=== PATIENT | female | born 1960 | race Asian ===

== ENCOUNTER → 2016-08-08 | Outpatient (CLI) | payer BC ==
[~2016-08-08] MED LIST: ANT25 PO; FLNIN/ NAE; HYDR12.55 PO; MECL1TAB42 PO; MULT-506 PO; NAPR-1169 PO; PRED20TA PO; ULT50 PO; VERA180T10 PO; XLTOPS OPB
--- NOTE | 2016-08-08 21:20 | DIAGNOSTIC IMAGING REPORT ---
CHEST 2 VIEWS ROUTINE CLINICAL HISTORY: Cough, fatigue. COMPARISON STUDY: 04/15/2016 FINDINGS: The cardiac and mediastinal contours are normal. There is no evidence of focal pulmonary consolidation. There is no evidence of failure. No pleural effusions are visualized.[ IMPRESSION: No active disease in the chest. Electronically signed by: Galo Khan M.D. 08/08/2016 9:18 PM Dictated Date/Time: 08/08/2016 9:18 PM
== END | disposition home or self-care (01) ==
LOC: C.RAD 20:45
PROVIDERS: ATTEND Family Medicine
DX: R05 Cough (principal); R09.89 Other specified symptoms and signs involving the circulatory and respiratory systems; R53.83 Other fatigue

== ENCOUNTER → 2016-08-12 | Outpatient (CLI) | payer BC ==
--- NOTE | 2016-08-12 11:28 | DIAGNOSTIC IMAGING REPORT ---
LEFT ELBOW MIN 3 VIEWS CLINICAL HISTORY: Left elbow pain COMPARISON: None. DISCUSSION: The fat pads are not displaced. 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 No acute fractures are visualized. No destructive lesions are evident. 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 Electronically signed by: Galo Khan M.D. 08/12/2016 11:27 AM Dictated Date/Time: 08/12/2016 11:25 AM
--- NOTE | 2016-08-12 15:07 | DIAGNOSTIC IMAGING REPORT ---
RIGHT ELBOW 3 VIEWS CLINICAL HISTORY: Right elbow pain. No reported history of trauma. FINDINGS: 3 views of the right elbow are obtained. No prior studies are available for comparison at the time of dictation. The skeletal structures appear osteopenic. No fracture is seen. The joint spaces of the elbow are well-maintained. There is no joint effusion. Mild spurring is seen along the medial joint space. There is also minimal spurring from the radial head. There are tiny enthesophytes arising from the humeral epicondyles. The overlying soft tissues are normal in appearance. IMPRESSION: Minimal degenerative change as above with no acute bony abnormality identified in the right elbow. Electronically signed by: Aubrey Iyer M.D. 08/12/2016 3:06 PM Dictated Date/Time: 08/12/2016 3:05 PM
== END | disposition home or self-care (01) ==
LOC: C.RDSM 08:00
PROVIDERS: ATTEND Physical Medicine & Rehabilitation Sports Medicine
DX: M25.529 Pain in unspecified elbow (principal)

== ENCOUNTER → 2016-09-05 | Outpatient (CLI) | payer BC ==
--- NOTE | 2016-09-06 12:25 | MAMMOGRAPHY REPORT ---
BILATERAL DIGITAL SCREENING MAMMOGRAM TOMOSYNTHESIS WITH CAD: 09/05/2016 CLINICAL HISTORY: Routine screening. Patient has no complaints. TECHNIQUE: Breast tomosynthesis in addition to standard 2D mammography was performed. Current study was also evaluated with a Computer Aided Detection (CAD) system. COMPARISON: Comparison is made to exams dated: 09/03/2015 mammogram, 09/01/2014 mammogram, 08/26/2013 mammogram, 08/20/2012 mammogram, 08/16/2011 mammogram, and 08/09/2010 mammogram - [facility]. BREAST COMPOSITION: There are scattered areas of fibroglandular density in both breasts. FINDINGS: The parenchymal pattern is unchanged. No developing mass, architectural distortion or clu ster of suspicious microcalcifications is seen in either breast. IMPRESSION: ACR BI-RADS CATEGORY 2: BENIGN There is no mammographic evidence of malignancy. A 1 year screening mammogram is recommended. The p atient will receive written notification of the results. Approximately 10% of breast cancers are not detected with mammography. A negative mammographic repor t should not delay biopsy if a clinically suggestive mass is present. Silvia Carlisle M.D. ay/:09/05/2016 22:00:22 Dishwashing Machine Repairer: Sarahi MA(Vinh)(Anika)(BD), [facility] letter sent: Normal 1/2 BI-RADS Code: ACR BI-RADS Category 2: Benign
== END | disposition home or self-care (01) ==
LOC: C.MAMM 14:47
PROVIDERS: ATTEND Nurse Practitioner Family
DX: Z12.31 Encounter for screening mammogram for malignant neoplasm of breast (principal)

== ENCOUNTER → 2016-10-03 | Outpatient (CLI) | payer BC | END | disposition home or self-care (01) | LOC: C.PAPS 12:17 | PROVIDERS: ATTEND Physician Assistant | DX: Z01.419 Encounter for gynecological examination (general) (routine) without abnormal findings (principal) ==

== ENCOUNTER 2016-11-07 09:35 | Emergency (ER) | payer BC ==
[~2016-11-07] VITALS: Ht 157.5 cm; Wt 53.6 kg
[~2016-11-07 09:35] MED LIST changes: -MULT-506 PO; -NAPR-1169 PO; -ULT50 PO; -VERA180T10 PO
[2016-11-07 09:41] VITALS: TEMP 36.6; Ht 157.5 cm; Wt 53.6 kg
[2016-11-07] MEDS ORDERED: ULT50 PO (10:04)
[2016-11-07] MEDS ORDERED: HYDROmorphone INJ 0.5 MG/0.5 ML SYR IV STA (10:51)
[2016-11-07] MEDS ORDERED: KETOROLAC TROMETHAMINE 30 MG/ML VIAL IV STA (10:51)
--- NOTE | 2016-11-07 10:55 | EMERGENCY ROOM VISIT NOTE ---
History Report prepared by Kaushik: Luis Mojica Under the Supervision of: Dr. Tawny Barry D.O. First contact with patient: 10:07 Chief Complaint: HIP PAIN Stated Complaint: PAIN FROM BUTT ALL THE WAY TO THE FOOT History of Present Illness The patient is a 55 year old female who presents to the Emergency Room with complaints of persistent left sided back pain that began one week ago. She currently rates her discomfort as an 8/10 in severity. The patient notes a history of chronic right sided back pain, but states that one week ago she developed left sided back pain. She states that her pain has radiated down her left lower extremity. The patient states that she has had difficulty ambulating and sitting due to her pain. The patient states that she consulted her PCP and was told that she had sciatica. She states that she was prescribed 50 mg of Tramadol three times a day for her pain and a Prednisone taper. The patient denies any previous MRI of her back. She associates nausea and dizziness due to her pain medications. The patient states that last Monday she used a massage chair that began prior to her pain beginning. Source of History: patient Onset: one week ago Position: back (left sided) Symptom Intensity: 8/10 Quality: other (radiating) Timing: other (persistent) Associated Symptoms: + nausea Note: Associated Symptom: pain radiating down left leg, dizziness Review of Systems See HPI for pertinent positives & negatives. A total of 10 systems reviewed and were otherwise negative. Past Medical & Surgical Medical Problems: (1) Hypercholesteremia (2) Migraine headache (3) Neck pain (4) Thyroid disease Family History Patient reports no known family medical history. Social History Smoking Status: Never Smoker Alcohol Use: none Drug Use: none Marital Status: Housing Status: lives with family Occupation Status: employed Current/Historical Medications Scheduled Fluticasone Propionate (Fluticasone Propionate), 2 SPRAYS DARRIN DAILY Hydrochlorothiazide (Hydrochlorothiazide), 1 TAB PO QAM Latanoprost (Latanoprost), 1 DROP OPB HS Prednisone (Prednisone), 40 MG PO DAILY Scheduled PRN Meclizine HCl (Meclizine HCl), 25 MG PO Q8 PRN for vertigo Meclizine Hcl (Meclizine Hcl), 1 TAB PO TID PRN for Nausea Tramadol HCl (Tramadol HCl), 50 MG PO UD PRN for Pain Allergies Coded Allergies: Shrimp (Unverified Allergy, Mild, RASH, 04/15/16) Desloratadine (Verified Allergy, Unknown, RASH, 04/15/16) Loratadine (Verified Allergy, Unknown, rash, 04/15/16) Shellfish (Verified Allergy, Unknown, RASH, 04/15/16) Amlodipine (Verified Adverse Reaction, Intermediate, SWELLING IN FEET, 04/15/16) Lisinopril (Verified Adverse Reaction, Intermediate, SWELLING IN FEET, 04/15/16) Physical Exam Vital Signs Date Time Temp Pulse Resp B/P Pulse Ox O2 Delivery O2 Flow Rate FiO2 11/07/16 14:25 68 16 161/97 97 11/07/16 13:30 60 16 142/87 98 Room Air 11/07/16 12:17 61 16 148/92 95 Room Air 11/07/16 11:07 73 16 171/100 96 Room Air 11/07/16 09:41 36.6 76 18 181/105 96 Room Air Physical Exam HEENT: Head - normocephalic and atraumatic Pupils are equal, round, and reactive to light. Extraocular eye muscles are intact, and sclera are anicteric. Nose - moist nasal mucosa without discharge. Mouth - moist buccal mucosa. Oropharynx is nonerythematous and there is no tonsillar exudate or edema noted. Neck: Supple; no JVD, nuchal rigidity, cervical lymphadenopathy, or auscultated bruits. Heart: Regular rate and rhythm. There is a normal S1 and S2 with no murmurs, clicks, or gallops appreciated. Lungs: Clear to auscultation bilaterally with no wheezes, rales, or rhonchi. Abdomen: Soft, completely nontender, nondistended, with good bowel sounds. There are no palpable pulsatile masses or hepatosplenomegaly. There is no guarding, rigidity, or rebound noted. Back: Pain to palpation of the PSIS, left piriformis muscle, and left hip. Extremities: Pain to palpation of the left calf and area behind the left lateral malleolus. Left lower extremity reflexes 2/4. Normal sensation. Normal muscle strength. No evidence of cyanosis, clubbing, or edema. There are easily palpable peripheral pulses. Skin: warm and dry with good turgor and no rashes. Medical Decision & Procedures ER Provider Diagnostic Interpretation: Radiology results as stated below per my review and the radiologist's interpretation: LUMBAR SPINE MRI HISTORY: Pain. Neuropathy. Eval for L/S disc herniation. Left leg symptoms TECHNIQUE: Multiplanar multisequence MRI of the lumbar spine was performed without the use of contrast. COMPARISON: None. FINDINGS: For the purpose of the report the L5-S1 disc space will be located on axial image 27 of 30. Posterior disc herniation L4-L5 based on the sagittal images. Signal characteristics of the vertebral bodies are unremarkable. Moderate degenerative disc change L4-L5. Mild disc desiccation L5-S1. L1-L2: No significant central canal or neural foraminal narrowing. L2-L3: No significant central canal or neural foraminal narrowing. L3-L4: No significant central canal or neural foraminal narrowing. L4-L5: Broad-based disc herniation with moderate small extruded component extending to the left lateral recess. This. Extruded component measures 9 x 4 mm. Mild narrowing of the neuroforamina bilaterally. This again is more prominent on the left. L5-S1: No significant central canal or neural foraminal narrowing. IMPRESSION: 1. Broad-based disc herniation L4-L5 with an extruded component occupying components of the left lateral recess. 2. Otherwise negative study Electronically signed by: Pradip Conklin M.D. 11/07/2016 12:31 PM Dictated Date/Time: 11/07/2016 12:23 PM Medications Administered Medications (Trade) Dose Ordered Sig/Viviane Route Start Time Stop Time Status Last Admin Dose Admin Ketorolac Tromethamine (Toradol Inj) 30 mg NOW STAT IV 11/07/16 10:51 11/07/16 10:52 DC 11/07/16 11:05 30 MG Hydromorphone HCl (Dilaudid Inj) 0.5 mg NOW STAT IV 11/07/16 10:51 11/07/16 10:52 DC 11/07/16 11:05 0.5 MG Procedure The patient was treated with Dilaudid Inj 0.5 mg IV, Toradol Inj 30 mg IV. ED Course 1040: Past medical records reviewed. The patient was evaluated in room C7. A complete history and physical exam was performed. IV lock was initiated 1051: Ordered Dilaudid Inj 0.5 mg IV, Toradol Inj 30 mg IV. Patient went for MRI of the lumbar spine. 1325: I reevaluated the patient and she states that her pain is under control, but does not believe that she can take pain medications at home, because they will make her too dizzy. 1341: I discussed the patients case with Aron Ramos-spine. He will see the patient between 1000 and 1200 tomorrow. 1409: I reevaluated the patient and she is doing well. I discussed the exam findings with her and I discussed the treatment plan. She verbalized complete understanding and agreement. She declines any pain medication prescription, stating that she will take her prescribed Prednisone and Advil. She is ready to go home. Medical Decision The patient is a 55 year old female who presents to the ED with persistent back pain. Differential diagnosis includes lumbar disc herniation, cauda equina syndrome, SI root compression, sciatica. This is a 55-year-old female patient who presents to the emergency department with severe left-sided low back pain. The patient explains that she has chronic right-sided low back pain but is typically tolerable. Over the past couple days, she's developed more intense left-sided low back pain which radiates into her left buttocks and down her left leg. She was seen by her PCP who prescribed a prednisone taper.. She presents here today because the pain is unbearable.\ MRI does show chronic findings in the right side of her low back but also a significant broad-based disc herniation affecting the left side. The patient will be discharged home. This time but will be seen by spinal surgery tomorrow. She was told to return to the emergency department immediately if she developed any worsening symptoms such as weakness or loss of sensation in that leg. Consults Time Called: 1335 Consulting Physician: Alice RamosSpine Returned Call: 1341 I discussed the patients case with Alice Ramosspine. He will see the patient between 1000 and 1200 tomorrow. Impression Primary Impression: Herniation of left side of L4-L5 intervertebral disc Additional Impression: Lumbar radiculopathy Scribe Attestation The scribe's documentation has been prepared under my direction and personally reviewed by me in its entirety. I confirm that the note above accurately reflects all work, treatment, procedures, and medical decision making performed by me. Departure Information Dispostion Home / Self-Care Referrals Eliud Santillan M.D. (PCP) Donaldo Simms D.O. Forms HOME CARE DOCUMENTATION FORM, IMPORTANT VISIT INFORMATION, WORK / SCHOOL INSTRUCTIONS Patient Instructions My [facility] Additional Instructions Continue prednisone as directed. Return to the ER for left leg weakness or loss of control of bowels or bladder Follow up with Dr. Simms tomorrow Problem Qualifiers
--- NOTE | 2016-11-07 12:32 | DIAGNOSTIC IMAGING REPORT ---
LUMBAR SPINE MRI HISTORY: Pain. Neuropathy. Eval for L/S disc herniation. Left leg symptoms TECHNIQUE: Multiplanar multisequence MRI of the lumbar spine was performed without the use of contrast. COMPARISON: None. FINDINGS: For the purpose of the report the L5-S1 disc space will be located on axial image 27 of 30. Posterior disc herniation L4-L5 based on the sagittal images. Signal characteristics of the vertebral bodies are unremarkable. Moderate degenerative disc change L4-L5. Mild disc desiccation L5-S1. L1-L2: No significant central canal or neural foraminal narrowing. L2-L3: No significant central canal or neural foraminal narrowing. L3-L4: No significant central canal or neural foraminal narrowing. L4-L5: Broad-based disc herniation with moderate small extruded component extending to the left lateral recess. This. Extruded component measures 9 x 4 mm. Mild narrowing of the neuroforamina bilaterally. This again is more prominent on the left. L5-S1: No significant central canal or neural foraminal narrowing. IMPRESSION: 1. Broad-based disc herniation L4-L5 with an extruded component occupying components of the left lateral recess. 2. Otherwise negative study Electronically signed by: Pradip Conklin M.D. 11/07/2016 12:31 PM Dictated Date/Time: 11/07/2016 12:23 PM
[2016-11-07 14:25] VITALS: BP 161/97; PULSE 68; O2SAT 97
[2016-11-18] MEDS ORDERED: NAPR-1169 PO (12:36)
[2016-11-18] MEDS ORDERED: MULT-506 PO (12:38)
[2016-11-22] MEDS ORDERED: ULT50 PO (11:18)
== END 2016-11-07 14:26 | disposition home or self-care (01) ==
LOC: C.EDB 09:36 → C.EDC 14:26
DX: M51.16 Intervertebral disc disorders with radiculopathy, lumbar region (principal); Z79.52 Long term (current) use of systemic steroids

== ENCOUNTER → 2016-11-17 | Outpatient (CLI) | payer BC ==
[~2016-11-17] MED LIST changes: +MULT-506 PO; +NAPR-1169 PO; +OMEP20CA9 PO; +ULT50 PO; +VERA180T10 PO; +VERA240C2 PO; +VRPSR180 PO; +ZLF50 PO
[2016-11-17 10:22] LABS: BASO % 0.6 %; BASO ABS # 0.04 K/uL (0-0.2); COMPLETE YES; EOS % 2.4 %; HEMATOCRIT 46.3 % (37-47); IG% 0.3 %; LYMPH % 33.5 %; LYMPH ABS # 2.23 K/uL (1.2-3.4); MANUAL MICROSCOPIC REQUIRED? NO; MEAN CELL VOLUME 86.7 fL (80-100); MEAN CORPUSCULAR HEMOGLOBIN 28.8 pg (25-34); MEAN CORPUSCULAR HGB CONC 33.3 g/dl (32-36); MEAN PLATELET VOLUME 9.3 fL (7.4-10.4); MONO % 6.8 %; NEUT % 56.4 %; PLATELET COUNT 246 K/uL (130-400); RED BLOOD COUNT 5.34 M/uL (4.2-5.4); REVIEW REQ? NO; URINE APPEARANCE CLEAR (CLEAR); URINE BILIRUBIN NEG (NEG); URINE COLOR YELLOW; URINE NITRITE NEG (NEG); URINE PH 7.5 (4.5-7.5); URINE SPECIFIC GRAVITY 1.007 (1.000-1.030); UROBILINOGEN NEG (NEG); WHITE BLOOD COUNT 6.66 K/uL (4.8-10.8)
--- NOTE | 2016-11-17 10:29 | DIAGNOSTIC IMAGING REPORT ---
CHEST 2 VIEWS ROUTINE HISTORY: M51.16 PRE-OP COMPARISON: Chest 08/08/2016. FINDINGS: The lungs are clear. Cardiac silhouette is normal in size. No pleural effusions. No pneumothorax. IMPRESSION: No acute process. Electronically signed by: Adrian Macias M.D. 11/17/2016 10:27 AM Dictated Date/Time: 11/17/2016 10:26 AM
[2016-11-17 10:58] LABS: BLOOD UREA NITROGEN 16 mg/dl (7-18); BUN/CREATININE RATIO 24.5 (10-20); CALCIUM 9.3 mg/dl (8.5-10.1); CARBON DIOXIDE 37 mmol/L (21-32); CHLORIDE 103 mmol/L (98-107); CREATININE 0.65 mg/dl (0.60-1.20); GLUCOSE 82 mg/dl (70-99); POTASSIUM 3.3 mmol/L (3.5-5.1); SODIUM 143 mmol/L (136-145)
== END | disposition home or self-care (01) ==
LOC: C.CPL 09:38
PROVIDERS: ATTEND Orthopaedic Surgery Orthopaedic Surgery of the Spine
DX: M51.16 Intervertebral disc disorders with radiculopathy, lumbar region (principal)

== ENCOUNTER 2016-11-22 08:14 | Day surgery (SDC) | payer BC ==
[2016-11-18 12:38] VITALS: Ht 157.5 cm; Wt 54.5 kg
[~2016-11-22] VITALS: Ht 157.5 cm; Wt 54.5 kg
--- NOTE | 2016-11-22 07:26 | History & Physical Bridge Note ---
H&P Re-Evaluation Bridge Note: I have examined the patient, reviewed the History & Physical and in the interval since the performance of the History & Physical I have noted the following changes of clinical significance: No changes noted
[~2016-11-22 08:14] MED LIST changes: -ANT25 PO; +CEFAZOLIN 1000MG/55 ML D5W IV SCH; +LACTATED RINGER'S 1000ML 1,000 ML IV SCH; -OMEP20CA9 PO; -PRED20TA PO; -VERA180T10 PO; -VERA240C2 PO; -VRPSR180 PO; -ZLF50 PO
[2016-11-22 08:52] VITALS: BP 166/96; PULSE 70; TEMP 36.9; O2SAT 99
[2016-11-22] MEDS ORDERED: FENTANYL CITRATE INJ 50 MCG/1 ML 2 ML VIAL ONE (09:25)
[2016-11-22] MEDS ORDERED: MIDAZOLAM HCL 1 MG/ML 2ML VIAL ONE (09:25)
--- NOTE | 2016-11-22 09:38 | History and Physical ---
History & Physical Date November 22, 2016. Chief Complaint back and leg pain History of Present Illness The patient is a 55 year old female with complaints of Past Medical/Surgical History Medical Problems: (1) Hypercholesteremia (2) Migraine headache (3) Neck pain (4) Thyroid disease Additional History Hepatic Disease: No Endocrine Disorder: No Kidney Disease: No Hypertension: No Heart Disease: No Bleeding Tendencies: No Infectious Diseases: No Allergies Coded Allergies: Shrimp (Unverified Allergy, Mild, RASH, 11/22/16) Desloratadine (Verified Allergy, Unknown, RASH, 11/22/16) Loratadine (Verified Allergy, Unknown, rash, 11/22/16) Shellfish (Verified Allergy, Unknown, RASH, 11/22/16) Amlodipine (Verified Adverse Reaction, Intermediate, SWELLING IN FEET, ) Lisinopril (Verified Adverse Reaction, Intermediate, SWELLING IN FEET, ) Home Medications Scheduled Fluticasone Propionate (Fluticasone Propionate), 2 SPRAYS DARRIN DAILY Hydrochlorothiazide (Hydrochlorothiazide), 1 TAB PO QAM Latanoprost (Latanoprost), 1 DROP OPB HS Multivitamin (Multivitamin), 1 TAB PO QAM Scheduled PRN Meclizine Hcl (Meclizine Hcl), 1 TAB PO TID PRN for Nausea Naproxen (Naprosyn), 500 MG PO BID PRN for PRN Tramadol HCl (Tramadol HCl), 50 MG PO UD PRN for Pain Physical Examination Skin: warm/dry, no rash Eyes: normal inspection, EOMI, sclerae normal ENT: normal ENT inspection, pharynx normal Head: normocephalic, atraumatic Neck: supple, no adenopathy, trachea midline Respiratory/Chest: lungs clear, normal breath sounds, no respiratory distress Cardiovascular: regular rate, rhythm, no edema, no murmur Abdomen / GI: normal bowel sounds, non tender Back: normal inspection Extremities: normal inspection, normal range of motion Neurologic/Psych: no motor/sensory deficits, alert, normal reflexes, oriented x 3 Diagnosis hnp L4-5 Plan of Treatment Laminectomy L4-5 L
[2016-11-22] MEDS ORDERED: LACTATED RINGER'S 1000ML 1,000 ML IV PRN (09:41)
[2016-11-22] MEDS ORDERED: FENTANYL CITRATE INJ 50 MCG/1 ML 2 ML VIAL IV PRN (09:45)
[2016-11-22] MEDS ORDERED: HYDROmorphone INJ 1 MG/ML SYR IV PRN ×2 (09:45→11:30)
[2016-11-22] MEDS ORDERED: ONDANSETRON INJ 2 MG/ML 2 ML VIAL IV PRN (09:45)
[2016-11-22] MEDS ORDERED: METOCLOPRAMIDE HCL INJ 5 MG/ML 2 ML VIAL IV PRN (09:45)
[2016-11-22] MEDS ORDERED: DiphenhydrAMINE HCL 50 MG/ML VIAL IV PRN (09:45)
[2016-11-22] MEDS ORDERED: SODIUM CHLORIDE 0.9% PF 50 ML VIAL ONE (09:57)
[2016-11-22] MEDS ORDERED: BACITRACIN 50000 UNIT VIAL ONE (09:57)
[2016-11-22] MEDS ORDERED: BUPIVACAINE/EPINEPHRINE 0.5% MPF 1:200,000 30 ML VIAL ONE (09:57)
[2016-11-22] MEDS ORDERED: MINERAL OIL LIGHT 10 ML BTL ONE (10:20)
[2016-11-22] MEDS ORDERED: HYDROmorphone INJ 2 MG/ML SYR/VIAL ONE (10:46)
[2016-11-22] MEDS ORDERED: KETOROLAC TROMETHAMINE 30 MG/ML VIAL ONE (10:47)
[2016-11-22] MEDS ORDERED: ONDANSETRON INJ 2 MG/ML 2 ML VIAL ONE (10:47)
[2016-11-22] MEDS ORDERED: GLYCOPYRROLATE INJ 0.2 MG/ML VIAL ONE (10:47)
[2016-11-22] MEDS ORDERED: PROPOFOL IV EMULSION 10 MG/ML 20 ML VIAL IV ONE ×2 (10:47→11:03)
[2016-11-22] MEDS ORDERED: LIDOCAINE HCL 2% 2 ML VIAL (20MG/ML) ONE (10:47)
[2016-11-22] MEDS ORDERED: ROCURONIUM BROMIDE 10 MG/ML 5 ML VIAL ONE (10:47)
[2016-11-22] MEDS ORDERED: EpHEDrine SULFATE 50MG/5ML SYR ONE (10:47)
[2016-11-22] MEDS ORDERED: DEXAMETHASONE SOD INJ 4 MG/ML VIAL ONE (10:47)
[2016-11-22] MEDS ORDERED: NEOSTIGMINE METHYLSULFATE 1 MG/ML 10ML VIAL ONE (10:47)
[2016-11-22] MEDS ORDERED: FLOSEAL HEMOSTATIC MATRIX 5ML TOP ONE (11:12)
--- NOTE | 2016-11-22 11:16 | DIAGNOSTIC IMAGING REPORT ---
INTRAOPERATIVE RADIOGRAPH CLINICAL HISTORY: L4-L5 microdiscectomy. Fluoroscopy time: 6 seconds. FINDINGS: A single spot fluoroscopic image of the lower lumbar spine is presented. A surgical probe projects posterior to the superior endplate of the L5 vertebral body. IMPRESSION: Intraoperative image from L4 to L5 microdiscectomy as above. Electronically signed by: Aubrey Iyer M.D. 11/22/2016 11:14 AM Dictated Date/Time: 11/22/2016 11:13 AM
--- NOTE | 2016-11-22 11:16 | [facility] Operative Report ---
Operative Report Operative Date November 22, 2016. Pre-Operative Diagnosis Herniated Nucleus Pulposus L4-L5 Post-Operative Diagnosis same Procedure(s) Performed lami Surgeon Post Office Markup Clerk Surgeon(s) None Estimated Blood Loss 20ML Findings hnp Specimens None per surgeon I attest to the content of the Intraoperative Record and any orders documented therein. Any exceptions are noted below.
[2016-11-22] MEDS ORDERED: ULT50 PO (11:18)
--- NOTE | 2016-11-22 11:19 | Discharge Instructions ---
Discharge Instructions Date of Service November 22, 2016. Admission Reason for Admission: Lumbar Spinal Stenosis Discharge Discharge Diagnosis / Problem: hnp Discharge Goals Goal(s): Improve function Activity Recommendations Activity Limitations: per Instructions/Follow-up section . Instructions / Follow-Up Instructions / Follow-Up ACTIVITY RECOMMENDATIONS: SELF CARE INSTRUCTIONS AFTER A LAMINECTOMY 1. No prolonged sitting (less than 30 minutes for the first 3 weeks after surgery). 2. No bending, lifting more than 5 pounds, or twisting (roll like a log when turning in bed). 3. You may shower 3 days after surgery if no drainage from wound. Thoroughly dry wound. Do not soak in the tub. 4. Please walk as much as you can for exercise. Gradually increase the distance that you walk as your endurance increases. 5. You may drive in 7-10 days if you are comfortable and no longer requiring pain medications. SPECIAL CARE INSTRUCTIONS: VERY IMPORTANT TO READ AND REVIEW A. Your surgical incision has been closed with a cosmetic suture under the skin that will dissolve in about 6 weeks. In 14 days, you can use a pair of clean scissors and cut the suture that is left outside of the skin at the ends of your incision. B. Complications are uncommon, but please contact us if you have any signs or symptoms of: 1. wound infection (fever higher than 102.5 degrees F, redness, separation of wound, drainage, or increasing pain from the incision) 2. blood clots in legs (pain, swelling, redness and warmth in legs) 3. urinary tract infection (fever higher than 102.5 degrees, burning upon urination or increased frequency of urination) 4. nerve problems (inability to walk on your toes or heels, numbness, loss of bowel or bladder control) 5. any other symptoms that concern you. C. Please call the office at if you have any concerns or questions about your operation or recovery. MANAGING PAIN AFTER SPINAL SURGERY 1. Narcotic medication is intended for short-term use and will be provided for surgical pain. Surgical pain usually lasts for a period of 4-6 weeks. Narcotic medication includes Percocet, Vicodin, Darvocet, Tylenol #3 or Lortab. 2. Longer-term pain is more appropriately treated with non-narcotic medication such as Tylenol ES. 3. Muscle spasm is not appropriately treated with narcotics. Muscle relaxers such as Soma, Flexeril or Skelaxin can be used along with Tylenol ES. 4. Remember that we all live with some "aches and pains". This is not unusual or uncommon after an injury or as we get older. 5. We will provide appropriate medication within the normal guidelines of their prescribed use. We will also be very cautious and aware of potential abuse and extended duration of patients' medication needs. 6. Please allow 2-3 days to process refills. Prescriptions will not be mailed but must be picked up at the office. FOLLOW UP VISIT: Keep your scheduled follow-up appointment. Any questions, please call the office at . Current Hospital Diet Patient's current hospital diet: Discharge Diet Recommended Diet: Regular Diet Procedures Procedures Performed: Left L4-L5 Microdiscectomy Pending Studies Studies pending at discharge: no Medical Emergencies . Who to Call and When: Medical Emergencies: If at any time you feel your situation is an emergency, please call 911 immediately. . Non-Emergent Contact Non-Emergency issues call your: Primary Care Provider . "Provider Documentation" section prepared by Donaldo Simms. . VTE Core Measure Inpt VTE Proph given/why not?: Tamiko Randall, SCD's
[2016-11-22] MEDS ORDERED: KETOROLAC TROMETHAMINE 15 MG/ML VIAL IV. PRN (11:30)
[2016-11-22] MEDS ORDERED: ACETAMINOPHEN 325 MG TAB PO PRN (11:30)
[2016-11-22] MEDS ORDERED: OXYCODONE HCL IR 5 MG TAB (IMMEDIATE RELEASE) PO PRN (11:30)
--- NOTE | 2016-11-22 12:25 | Anesthesiology Progress Note ---
Anesthesia Post Op Note Date & Time November 22, 2016 at 12:25 Vital Signs Pain Intensity: 0 Vital Signs Past 12 Hours Date Time Temp Pulse Resp B/P Pulse Ox O2 Delivery O2 Flow Rate FiO2 11/22/16 12:05 36 80 13 132/81 97 Room Air 11/22/16 11:50 75 13 133/80 100 Mask 10 11/22/16 11:40 84 15 133/81 100 Mask 10 11/22/16 11:30 36.0 98 16 142/87 99 Mask 10 11/22/16 08:52 36.9 70 18 166/96 99 Room Air Notes Mental Status: alert / awake / arousable, participated in evaluation Pt Amnestic to Procedure: Yes Nausea / Vomiting: adequately controlled Pain: adequately controlled Airway Patency, RR, SpO2: stable & adequate BP & HR: stable & adequate Hydration State: stable & adequate Anesthetic Complications: no major complications apparent Pt doing well.
--- NOTE | 2016-11-22 12:34 | OPERATIVE REPORT ---
DATE OF OPERATION: 11/22/2016 PREOPERATIVE DIAGNOSIS: Herniated nucleus pulposus, L4-L5 on the left. POSTOPERATIVE DIAGNOSIS: Same. PROCEDURES PERFORMED: Lumbar laminotomy and excision of herniated free fragment, L4-L5 on the left. SURGEON: Dr. Donaldo Simms. ANESTHESIA: General. DISPOSITION: The patient was awakened and taken to PACU in stable condition. HISTORY OF PATIENT'S PROBLEMS: A 55-year-old female well known to me that presents with the above-mentioned diagnosis. After failing an extensive course of nonoperative care and having marked limitations of pain, she elected to undergo the above-mentioned procedure. Risks, benefits, pros, cons, and alternatives were outlined in detail preoperatively. DESCRIPTION OF PROCEDURE: The patient was met with preoperatively, case discussed and all questions were addressed. At that point, the patient was taken back to operative suite and after undergoing successful general intubation by the department of anesthesia, she was placed in prone position on Ted table atop the Osei frame. All bony prominences were well padded and the eyes were inspected to ensure there was no external pressure placed upon them. At this point, lumbar spine was prepped and draped in normal sterile fashion. With the assistance of fluoroscopy, we identified the L4-L5 disk space and a midline incision was created overlying this region. Sharp dissection with the assistance of Bovie cautery was performed down to and exposing the interlaminar space at L4-L5 on the left. A self-retaining retractor was placed. A small laminotomy was created including removal of the ligamentum flavum laterally. This exposed and compressed traversing L5 nerve root. It was mobilized medially. Several loose fragments of disk material were identified and addressed. When it was complete, we explored the incision to ensure all loose fragments were addressed, the nerve root had significant space and incision was then copiously irrigated and closed with 1-0 Vicryl in the fascia, 2-0 Vicryl subcutaneously, and 4-0 Monocryl for final skin closure. Steri-Strips and sterile dressing placed. The patient was awakened and taken to PACU in stable condition. I attest to the content of the Intraoperative Record and any orders documented therein. Any exceptio ns are noted below.
[2016-11-22 13:55] VITALS: BP 117/79; PULSE 79; O2SAT 93
[2016-11-22 15:00] VITALS: BP 128/77; PULSE 94; TEMP 37.2; O2SAT 97
[2016-11-22] MEDS ORDERED: NURSING VERBAL MED ORDER ONE (15:25)
[2016-11-22] MEDS ORDERED: TRAMADOL HCL 50 MG TAB ONE (15:31)
[2016-11-22 16:05] VITALS: BP 143/85; PULSE 92; TEMP 36.8; O2SAT 95
== END 2016-11-22 16:25 | disposition home or self-care (01) ==
LOC: C.ACU 08:14
PROVIDERS: ATTEND Orthopaedic Surgery Orthopaedic Surgery of the Spine
DX: M51.26 Other intervertebral disc displacement, lumbar region (principal); M54.16 Radiculopathy, lumbar region; I10 Essential (primary) hypertension; M06.9 Rheumatoid arthritis, unspecified; M19.90 Unspecified osteoarthritis, unspecified site; E78.5 Hyperlipidemia, unspecified; G62.9 Polyneuropathy, unspecified

== ENCOUNTER → 2017-01-16 | Outpatient (CLI) | payer BC ==
[~2017-01-16] MED LIST changes: -CEFAZOLIN 1000MG/55 ML D5W IV SCH; -LACTATED RINGER'S 1000ML 1,000 ML IV SCH; +VERA180T10 PO
[2017-01-18 13:49] LABS: QUANTIF TB AG-NIL 0.29 IU/ML; QUANTIFERON NIL 0.04 IU/ML
== END | disposition home or self-care (01) ==
LOC: C.LABSPEC 01-15 12:12
PROVIDERS: ATTEND Family Medicine
DX: Z20.1 Contact with and (suspected) exposure to tuberculosis (principal)

== ENCOUNTER → 2017-01-16 | Outpatient (CLI) | payer BC ==
--- NOTE | 2017-01-16 09:06 | DIAGNOSTIC IMAGING REPORT ---
SOFT TISS HEAD/NECK-THYROID HISTORY:56 yearsFemaleMULTIPLE THYROID NODULES COMPARISON: Thyroid ultrasound 12/15/2005. TECHNIQUE: Multiple real-time sonographic images of the thyroid were obtained assessing grayscale appearance and color flow. FINDINGS: RIGHT THYROID Lobe: 6.8 x 1.9 x 2.6 cm. LEFT THYROID LOBE: 7.0 x 1.6 x 2.6 cm. ISTHMUS: 0.3 cm. NODULES: There is a circumscribed hypoechoic solid-appearing nodule of the mid right thyroid, 0.4 x 0.3 x 0.4 cm with internal vascularity documented. Similar appearing nodule of the mid to inferior right thyroid is seen, 0.4 x 0.3 x 0.4 cm with internal vascularity. No left-sided nodules. Both of these nodules appear to be unchanged from comparison study dated 12/15/2005. PARENCHYMA: Generally homogeneous with vascularity within normal limits. IMPRESSION: 1. Two subcentimeter hypoechoic solid-appearing nodules of the right thyroid are seen measuring up to 0.4 cm. These appear generally unchanged from comparison study dated 12/15/2005. 2. No dominant thyroid nodules are seen within either thyroid lobe. The above report was generated using voice recognition software. It may contain grammatical, syntax or spelling errors. Electronically signed by: Serge Oliveros 01/16/2017 9:04 AM Dictated Date/Time: 01/16/2017 8:59 AM
== END | disposition home or self-care (01) ==
LOC: C.ULTR 08:19
PROVIDERS: ATTEND Family Medicine
DX: E04.2 Nontoxic multinodular goiter (principal)

== ENCOUNTER 2017-01-29 11:46 | Emergency (ER) | payer BC ==
[~2017-01-29] VITALS: Ht 157.5 cm; Wt 54.3 kg
[~2017-01-29 11:46] MED LIST changes: -VERA180T10 PO
[2017-01-29 11:51] VITALS: TEMP 36.7; Ht 157.5 cm; Wt 54.3 kg
[2017-01-29] MEDS ORDERED: VERA180T10 PO (12:21)
[2017-01-29] MEDS ORDERED: OPTIRAY 320 IV PRN (12:30)
--- NOTE | 2017-01-29 12:31 | EMERGENCY ROOM VISIT NOTE ---
ED Visit Note First contact with patient: 11:58 56-year-old female sent here from [facility]. I discussed care with Dr. Giron from that institution prior to the patient's arrival. The patient has dilatation of the neck veins on the left side of her neck. She has also been hoarse. The patient was evaluated by Angelica Hutchinson PA-C here in the ED. Please see her note. I also independently evaluated the patient here. Imaging studies and blood work were performed.
[2017-01-29 12:47] LABS: BASO % 0.5 %; BASO ABS # 0.02 K/uL (0-0.2); COMPLETE YES; EOS % 1.9 %; HEMATOCRIT 42.3 % (37-47); IG% 0.2 %; LYMPH % 42.3 %; LYMPH ABS # 1.78 K/uL (1.2-3.4); MEAN CELL VOLUME 85.3 fL (80-100); MEAN PLATELET VOLUME 9.8 fL (7.4-10.4); MONO % 4.8 %; NEUT % 50.3 %; PLATELET COUNT 230 K/uL (130-400); RED BLOOD COUNT 4.96 M/uL (4.2-5.4); WHITE BLOOD COUNT 4.21 K/uL (4.8-10.8)
--- NOTE | 2017-01-29 12:52 | EMERGENCY ROOM VISIT NOTE ---
History First contact with patient: 11:58 Chief Complaint: NECK PAIN Stated Complaint: NECK PAIN- SENT FROM [facility] History of Present Illness The patient is a 56 year old female who presents to the Emergency Room with complaints of left-sided neck pain. The patient states that she noticed pain in the left side of the neck over the last 3 days. She reports of being hoarse since November when she had low back surgery and they thought it was secondary to the intubation. She states that she noticed a lump and went to [place]. She states that the doctor there found 3 lumps in her neck. She states that she also has had intermittent headaches but does not have a headache today. She does see Dr. Fritz for her headaches. The patient states she has had some sinus congestion. She denies fevers. She denies any neck pain or neck stiffness. She rates her discomfort a 4/10. She denies any chest pain or trouble breathing. She denies any numbness, tingling, weakness in the extremities. Review of Systems A 10 system review of systems was completed with positives and pertinent negatives listed in the HPI. Past Medical/Surgical History Medical Problems: (1) Hypercholesteremia (2) Migraine headache (3) Neck pain (4) Thyroid disease Family History Patient reports no known family medical history. Social History Smoking Status: Never Smoker Alcohol Use: none Drug Use: none Marital Status: Housing Status: lives with family Occupation Status: employed Current/Historical Medications Scheduled Fluticasone Propionate (Fluticasone Propionate), 2 SPRAYS DARRIN DAILY Latanoprost (Latanoprost), 1 DROP OPB HS Multivitamin (Multivitamin), 1 TAB PO QAM Verapamil Hcl (Verapamil Hcl Sa), 1 TAB PO DAILY Scheduled PRN Meclizine Hcl (Meclizine Hcl), 12.5 MG PO TID PRN for Nausea Tramadol HCl (Tramadol HCl), 50 MG PO UD PRN for Pain Physical Exam Vital Signs Date Time Temp Pulse Resp B/P (MAP) Pulse Ox O2 Delivery O2 Flow Rate FiO2 01/29/17 15:51 71 18 121/70 94 01/29/17 11:51 36.7 82 18 136/86 94 Room Air Physical Exam VITALS: Vitals are noted on the nurse's note and reviewed by myself. Vital signs stable. GENERAL: This is a 56-year-old female, in no acute distress, nondiaphoretic, well-developed well-nourished. SKIN: The skin was without rashes, erythema, edema, or bruising. There is no tenting of the skin. Capillary reflex less than 2 seconds. HEAD: Normocephalic atraumatic. EARS: External auditory canals clear, tympanic membranes pearly granados without erythema or effusion bilaterally. EYES: Pupils equal round and reactive to light and accommodation. Conjunctivae without injection, sclerae without icterus. Extraocular movements intact. NOSE: Patent, turbinates without inflammation or discharge. Strength MOUTH: Mucous membranes moist. Tonsils are not enlarged. Pharynx without erythema or exudate. Uvula midline. Airway patent. Tongue does not deviate. NECK: Supple without nuchal rigidity. No lymphadenopathy. No thyromegaly. Cervical spine is nontender. There is dilatation of the veins in the left side of the neck. There is no erythema or warmth. There is mild tenderness to palpation. HEART: Regular rate and rhythm without murmurs gallops or rubs. LUNGS: Clear to auscultation bilaterally without wheezes, rales or rhonchi. No retractions or accessory muscle use. MUSCULOSKELETAL: No muscle atrophy, erythema, or edema noted. Full range of motion in all extremities. Normal gait. Strength 5/5 throughout. NEURO: Patient was alert and oriented to person place and time. No focal neurological deficits. Medical Decision & Procedures ER Provider Diagnostic Interpretation: CHEST 2 VIEWS ROUTINE CLINICAL HISTORY: left neck pain COMPARISON STUDY: 11/17/2016 FINDINGS: The cardiac and mediastinal contours are normal. There is no evidence of focal pulmonary consolidation. There is no evidence of failure. No pleural effusions are visualized.[ IMPRESSION: No active disease in the chest. CT ANGIOGRAPHY NECK COMBO CT DOSE: 1124.99 mGy.cm CLINICAL HISTORY: Neck pain. Possible dissection. TECHNIQUE: Unenhanced images were acquired through the neck. CT angiography was then performed in a dynamic helical fashion during intravenous administration of 94 cc of Optiray 320. Imaging was performed. A dose lowering technique was utilized adhering to the principles of ALARA. COMPARISON STUDY: MR angiography dated 03/13/2014, carotid Doppler ultrasound dated 03/29/2014 FINDINGS: The lung apices are unremarkable in appearance. There is no evidence of internal carotid artery aneurysm, dissection or hemodynamic significant stenosis. There is no evidence of vertebral artery stenosis, aneurysm or dissection. IMPRESSION: No evidence of vertebral or carotid artery aneurysm, dissection, or hemodynamically significant stenosis. Laboratory Results 01/29/17 12:30 Red Blood Count 4.96, Mean Corpuscular Volume 85.3, Mean Corpuscular Hemoglobin 29.0, Mean Corpuscular Hemoglobin Concent 34.0, Mean Platelet Volume 9.8, Neutrophils (%) (Auto) 50.3, Lymphocytes (%) (Auto) 42.3, Monocytes (%) (Auto) 4.8, Eosinophils (%) (Auto) 1.9, Basophils (%) (Auto) 0.5, Neutrophils # (Auto) 2.12, Lymphocytes # (Auto) 1.78, Monocytes # (Auto) 0.20, Eosinophils # (Auto) 0.08, Basophils # (Auto) 0.02 01/29/17 12:30 Test 01/29/17 12:30 White Blood Count 4.21 K/uL (4.8-10.8) Red Blood Count 4.96 M/uL (4.2-5.4) Hemoglobin 14.4 g/dL (12.0-16.0) Hematocrit 42.3 % (37-47) Mean Corpuscular Volume 85.3 fL (80-100) Mean Corpuscular Hemoglobin 29.0 pg (25-34) Mean Corpuscular Hemoglobin Concent 34.0 g/dl (32-36) Platelet Count 230 K/uL (130-400) Mean Platelet Volume 9.8 fL (7.4-10.4) Neutrophils (%) (Auto) 50.3 % Lymphocytes (%) (Auto) 42.3 % Monocytes (%) (Auto) 4.8 % Eosinophils (%) (Auto) 1.9 % Basophils (%) (Auto) 0.5 % Neutrophils # (Auto) 2.12 K/uL (1.4-6.5) Lymphocytes # (Auto) 1.78 K/uL (1.2-3.4) Monocytes # (Auto) 0.20 K/uL (0.11-0.59) Eosinophils # (Auto) 0.08 K/uL (0-0.5) Basophils # (Auto) 0.02 K/uL (0-0.2) RDW Standard Deviation 39.7 fL (36.4-46.3) RDW Coefficient of Variation 12.8 % (11.5-14.5) Immature Granulocyte % (Auto) 0.2 % Immature Granulocyte # (Auto) 0.01 K/uL (0.00-0.02) Prothrombin Time 10.3 SECONDS (9.0-12.0) Prothromb Time International Ratio 1.0 (0.9-1.1) Activated Partial Thromboplast Time 28.4 SECONDS (21.0-31.0) Partial Thromboplastin Ratio 1.1 Anion Gap 5.0 mmol/L (3-11) Est Creatinine Clear Calc Drug Dose 75.3 ml/min Estimated GFR () 114.5 Estimated GFR (Non- 98.8 BUN/Creatinine Ratio 18.9 (10-20) Calcium Level 9.1 mg/dl (8.5-10.1) Total Bilirubin 0.7 mg/dl (0.2-1) Aspartate Amino Transf (AST/SGOT) 17 U/L (15-37) Alanine Aminotransferase (ALT/SGPT) 24 U/L (12-78) Alkaline Phosphatase 71 U/L (45-117) Total Protein 7.0 gm/dl (6.4-8.2) Albumin 3.8 gm/dl (3.4-5.0) Globulin 3.2 gm/dl (2.5-4.0) Albumin/Globulin Ratio 1.2 (0.9-2) ED Course The patient was seen and examined. Previous visits were reviewed. The patient does not have a fever or leukocytosis. She does not have any significant electrolyte abnormalities. INR is 1.1. Chest x-ray does not reveal any acute abnormality CT of the neck does not reveal any obvious stenosis, dissection, aneurysm The patient presents to the emergency department with what appears to be distention of the veins on the left side of the neck. The exact etiology of this is not clear. She has not had any chest pain or trouble breathing. She has not had any abdominal pain, nausea or vomiting. She has not had any numbness, tingling, weakness of the upper or lower extremities. The patient should follow with her family doctor before the end of the week for recheck, further evaluation and management. She should return to the ER immediately with any worsening symptoms. The patient was also seen and examined by Dr. Kilgore who guided the evaluation today and agrees with the assessment and treatment plan. Medical Decision The differential diagnosis includes: head or neck trauma, cerebrovascular disorders, intracranial lesions, infection,transient ischemic attack (TIA), CVA , seizure, syncope, intracranial mass, intracranial bleeding and vestibular disorders, among others Medication Reconcilliation Current Medication List: was personally reviewed by me Blood Pressure Screening Patient's blood pressure: Normal blood pressure Blood pressure disposition: Did not require urgent referral Impression Primary Impression: JVD (jugular venous distension) Departure Information Condition GOOD Referrals Eliud Santillan M.D. (PCP) Patient Instructions My [facility] Additional Instructions Follow up with your family doctor for further evaluation and management this week Call the ED and ask to speak with the briefcase sewer if you are having trouble securing a timely appointment. [phone] Return with worsening symptoms, fever, headache, neck swelling, loss of vision, chest pain, trouble breathing
[2017-01-29 12:55] LABS: PARTIAL THROMBOPLASTIN RATIO 1.1; PROTHROMBIN TIME (PATIENT) 10.3 SECONDS (9.0-12.0)
[2017-01-29 13:07] LABS: BUN/CREATININE RATIO 18.9 (10-20); CALCIUM 9.1 mg/dl (8.5-10.1); CREATININE 0.66 mg/dl (0.60-1.20); POTASSIUM 3.3 mmol/L (3.5-5.1)
[2017-01-29 13:09] LABS: ALB/GLOB RATIO 1.2 (0.9-2)
--- NOTE | 2017-01-29 14:33 | DIAGNOSTIC IMAGING REPORT ---
CHEST 2 VIEWS ROUTINE CLINICAL HISTORY: left neck pain COMPARISON STUDY: 11/17/2016 FINDINGS: The cardiac and mediastinal contours are normal. There is no evidence of focal pulmonary consolidation. There is no evidence of failure. No pleural effusions are visualized.[ IMPRESSION: No active disease in the chest. Electronically signed by: Galo Khan M.D. 01/29/2017 2:31 PM Dictated Date/Time: 01/29/2017 2:31 PM
--- NOTE | 2017-01-29 14:44 | DIAGNOSTIC IMAGING REPORT ---
CT ANGIOGRAPHY NECK COMBO CT DOSE: 1124.99 mGy.cm CLINICAL HISTORY: Neck pain. Possible dissection. TECHNIQUE: Unenhanced images were acquired through the neck. CT angiography was then performed in a dynamic helical fashion during intravenous administration of 94 cc of Optiray 320. Imaging was performed. A dose lowering technique was utilized adhering to the principles of ALARA. COMPARISON STUDY: MR angiography dated 03/13/2014, carotid Doppler ultrasound dated 03/29/2014 FINDINGS: The lung apices are unremarkable in appearance. There is no evidence of internal carotid artery aneurysm, dissection or hemodynamic significant stenosis. There is no evidence of vertebral artery stenosis, aneurysm or dissection. IMPRESSION: No evidence of vertebral or carotid artery aneurysm, dissection, or hemodynamically significant stenosis. Electronically signed by: Galo Khan M.D. 01/29/2017 2:43 PM Dictated Date/Time: 01/29/2017 2:40 PM
[2017-01-29 15:51] VITALS: BP 121/70; PULSE 71; O2SAT 94
== END 2017-01-29 15:52 | disposition home or self-care (01) ==
LOC: C.EDB 11:48 → C.EDD 15:52
DX: I87.8 Other specified disorders of veins (principal); E78.5 Hyperlipidemia, unspecified; G43.909 Migraine, unspecified, not intractable, without status migrainosus

== ENCOUNTER → 2017-02-07 | Outpatient (CLI) | payer BC ==
[~2017-02-07] MED LIST changes: -HYDR12.55 PO; -NAPR-1169 PO; +VERA180T10 PO
--- NOTE | 2017-02-07 09:23 | DIAGNOSTIC IMAGING REPORT ---
LEFT NECK ULTRASONOGRAPHY CLINICAL HISTORY: NECK SWELLING COMPARISON STUDY: CT scan dated 01/29/2017 FINDINGS: No pathologic masses are visualized. The reported palpable abnormalities, appear to correspond with normal veins. IMPRESSION: No pathologic masses identified. Electronically signed by: Galo Khan M.D. 02/07/2017 9:22 AM Dictated Date/Time: 02/07/2017 9:20 AM
== END | disposition home or self-care (01) ==
LOC: C.ULTR 08:57
PROVIDERS: ATTEND Nurse Practitioner
DX: R22.1 Localized swelling, mass and lump, neck (principal)

== ENCOUNTER → 2017-02-20 | Outpatient (CLI) | payer BC ==
--- NOTE | 2017-02-20 14:00 | DIAGNOSTIC IMAGING REPORT ---
PELVIC COMPLETE NON OB CLINICAL HISTORY: 56 years-old Female presenting with PELVIC AND PERINEAL PAIN, history of tubal ligation, no abnormal bleeding, midline discomfort/distention. TECHNIQUE: Real-time grayscale and color and spectral Doppler ultrasound imaging of the pelvis was performed first using a transabdominal probe and subsequently transvaginal for better characterization. COMPARISON: 02/03/2014. FINDINGS: Uterus: Focal hypoechoic region at the posterior fundal region subjacent to the endometrium without evidence of hyperemia, most consistent with uterine fibroid. This is unchanged in appearance from prior exam. Anteverted. The uterus measures 7.1 x 3.2 x 4.5 cm. Endometrial stripe measures 6 mm in thickness. Endometrium normal-appearing. Cervix normal. Right adnexa: Right ovary normal. Right ovary measures 1.5 x 1.0 x 1.2 cm. Normal color Doppler flow and arterial and venous waveforms within the ovarian parenchyma. Left adnexa: Left ovary normal. Left ovary measures 1.6 x 0.9 x 1.5 cm. Normal color Doppler flow and arterial and venous waveforms within the ovarian parenchyma. Other: No free fluid. IMPRESSION: 1. No change since the prior exam. Suspected intramural fibroid near the uterine fundus. No examination for the patient's symptomatology. 2. Normal ovaries. Electronically signed by: Aristides Mabry M.D. 02/20/2017 1:59 PM Dictated Date/Time: 02/20/2017 1:55 PM
== END | disposition home or self-care (01) ==
LOC: C.ULTR 12:50
PROVIDERS: ATTEND Nurse Practitioner
DX: R10.2 Pelvic and perineal pain (principal)

== ENCOUNTER → 2017-03-15 | Outpatient (CLI) | payer BC ==
--- NOTE | 2017-03-15 11:51 | DIAGNOSTIC IMAGING REPORT ---
C-SPINE ROUTINE 4 OR 5 VIEWS HISTORY: 56 years-old Female M54.2 CERVICALGIA acute bilateral neck pain for 2 months without reported trauma. COMPARISON: CTA neck 01/29/2017 TECHNIQUE: 5 views of the cervical spine FINDINGS: There is straightening of the normal cervical lordosis. Vertebral body heights are well-maintained without fracture or subluxation. There is mild facet arthrosis of the mid and lower cervical spine. Mild multilevel facet arthropathy is also noted. There is suggested mild right-sided foraminal narrowing at C3-C4. The odontoid process appears intact. Lung apices are clear. IMPRESSION: 1. No acute cervical spine fracture or subluxation. 2. Mild multilevel facet arthrosis and uncovertebral spurring is present. There is resultant mild bony foraminal narrowing on the right at C3-C4. 3. Straightening of the normal cervical lordosis may be secondary to positioning or muscle spasm. The above report was generated using voice recognition software. It may contain grammatical, syntax or spelling errors. Electronically signed by: Serge Oliveros M.D. 03/15/2017 11:49 AM Dictated Date/Time: 03/15/2017 11:47 AM
== END | disposition home or self-care (01) ==
LOC: C.RAD 11:24
PROVIDERS: ATTEND Nurse Practitioner Family
DX: M54.2 Cervicalgia (principal)

== ENCOUNTER 2017-05-03 19:46 | Observation (INO) | payer BC ==
[~2017-05-03] VITALS: Ht 157.5 cm; Wt 53.0 kg
[2017-05-03] MEDS ORDERED: DIAZEPAM INJ 5 MG/ML 2 ML CARP IV STA (19:58)
[2017-05-03] MEDS ORDERED: SODIUM CHLORIDE 0.9% 1000ML 1,000 ML IV STA (19:58)
[2017-05-03] MEDS ORDERED: ONDANSETRON INJ 2 MG/ML 2 ML VIAL IV STA (19:58)
[2017-05-03] MEDS ORDERED: MECLIZINE HCL 25 MG TAB PO STA (19:58)
--- NOTE | 2017-05-03 20:13 | EMERGENCY ROOM VISIT NOTE ---
History Report prepared by Kaushik: Patrice Bui Under the Supervision of: Dr. Paulie Valerio M.D. First contact with patient: 19:54 Chief Complaint: DIZZY Stated Complaint: DIZZY,LIGHTHEADED,NUMBNESS IN HANDS AND ARMS History of Present Illness The patient is a 56 year old female who presents to the Emergency Room with complaints of constant dizziness beginning 4 hours ago. Per , the patient has been feeling symptoms of dizziness for the past 4 hours. He notes that the patient also began to show symptoms of vomiting and shakiness 2 hours ago. He reports that this may have been brought on by an increase in her medication. The patient reports that she is especially dizzy when she moves, but states that the dizziness does not go away when she stays still. She notes that her pain is a 6/10. She denies any abdominal pain. She reports that she has had previous episodes of dizziness, and that her current symptoms feel similar to her previous symptoms. Source of History: patient, family Onset: 4 hours ago Position: head Symptom Intensity: 6/10 Quality: other (dizziness) Timing: constant Associated Symptoms: + vomiting Note: the patient also complains of shaking Review of Systems See HPI for pertinent positives & negatives. A total of 10 systems reviewed and were otherwise negative. Past Medical & Surgical Medical Problems: (1) Hypercholesteremia (2) Migraine headache (3) Nausea and vomiting (4) Neck pain (5) Thyroid disease Family History Patient reports no known family medical history. Social History Smoking Status: Never Smoker Alcohol Use: none Drug Use: none Marital Status: Housing Status: lives with family Occupation Status: employed Current/Historical Medications Scheduled Fluticasone Propionate (Fluticasone Propionate), 2 SPRAYS DARRIN DAILY Latanoprost (Latanoprost), 1 DROP OPB HS Multivitamin (Multivitamin), 1 TAB PO QAM Omeprazole (Prilosec), 1 CAP PO DAILY Sertraline HCl (Sertraline HCl), 50 MG PO QAM Verapamil HCl (Verapamil HCl ER), 180 MG PO QAM Scheduled PRN Meclizine Hcl (Meclizine Hcl), 12.5 MG PO TID PRN for Nausea Allergies Coded Allergies: Adhesives (Unverified Allergy, Mild, CONTACT DERMATITIS, 05/03/17) Shrimp (Unverified Allergy, Mild, RASH, 05/03/17) Desloratadine (Verified Allergy, Unknown, RASH, 05/03/17) Loratadine (Verified Allergy, Unknown, rash, 05/03/17) Shellfish (Verified Allergy, Unknown, RASH, 05/03/17) Amlodipine (Verified Adverse Reaction, Intermediate, SWELLING IN FEET, ) Lisinopril (Verified Adverse Reaction, Intermediate, SWELLING IN FEET, ) Physical Exam Vital Signs Date Time Temp Pulse Resp B/P (MAP) Pulse Ox O2 Delivery O2 Flow Rate FiO2 05/04/17 00:39 75 14 122/82 95 Room Air 05/04/17 00:13 78 05/03/17 23:25 79 16 129/88 97 Room Air 05/03/17 21:42 71 16 150/95 99 Room Air 05/03/17 20:33 67 05/03/17 20:31 98 Room Air 05/03/17 20:31 98 Room Air 05/03/17 19:49 36.5 98 18 157/97 97 Room Air Physical Exam GENERAL: Actively heaving, cannot lift head due to dizziness HEAD: Normocephalic atraumatic EYES: Ocular movements intact pupils equal and react to light OROPHARYNX mucous membranes are moist no exudates present no erythema or edema present NECK: Supple no nuchal rigidity CHEST: Good equal expansion LUNGS: Clear and equal to auscultation CARDIAC: Normal S1 and S2 ABDOMEN: Soft nontender no guarding BACK: No CVA tenderness EXTREMITIES: No pain upon palpation normal muscle strength in all groups no clubbing cyanosis or edema NEURO: Patient is following commands and answering questions appropriately. Alert and oriented x3 Cranial Nerves 2-12 grossly intact Medical Decision & Procedures ER Provider Diagnostic Interpretation: Radiology results as stated below per my review and radiologist interpretation: ANGIOGRAPHY HEAD COMBO FINDINGS: CT BRAIN: There is no acute intracranial hemorrhage, midline shift, hydrocephalus, intracranial mass, territorial ischemia or abnormal extra-axial collections. Minimal bifrontal cerebral atrophy. No abnormal intra-axial or extra-axial enhancement. Mastoid air cells and middle ear cavities are clear. No calvarial fracture. Paranasal sinuses are clear. CT ANGIOGRAM OF THE BRAIN: The imaged bilateral internal carotid arteries are patent. Mild atherosclerotic plaquing of the clinoid internal carotid arteries bilaterally. The bilateral anterior and middle cerebral arteries are also patent. The vertebrobasilar system and posterior cerebral arteries are widely patent. There is no aneurysm, high-grade stenosis, or proximal branch occlusion identified. Dural sinuses appear patent. IMPRESSION: 1. No acute intracranial abnormality. No abnormal enhancement. 2. Unremarkable CTA of the head without aneurysm, dissection, high-grade stenosis or proximal branch occlusion. The above report was generated using voice recognition software. It may contain grammatical, syntax or spelling errors. Electronically signed by: Serge Oliveros M.D. 05/03/2017 8:36 PM CHEST ONE VIEW PORTABLE FINDINGS: The cardiomediastinal and hilar silhouettes are within normal limits. No pneumothorax, pleural effusion, focal airspace consolidation or overt pulmonary edema. Bones of the chest appear grossly intact. There are degenerative changes of the spine. IMPRESSION: No acute cardiopulmonary process. The above report was generated using voice recognition software. It may contain grammatical, syntax or spelling errors. Electronically signed by: Serge Oliveros M.D. 05/03/2017 8:51 PM Laboratory Results 05/03/17 20:00 Red Blood Count 5.12, Mean Corpuscular Volume 82.4, Mean Corpuscular Hemoglobin 29.3, Mean Corpuscular Hemoglobin Concent 35.5, Mean Platelet Volume 9.7, Neutrophils (%) (Auto) 45.6, Lymphocytes (%) (Auto) 46.5, Monocytes (%) (Auto) 5.5, Eosinophils (%) (Auto) 1.0, Basophils (%) (Auto) 0.4, Neutrophils # (Auto) 4.25, Lymphocytes # (Auto) 4.33, Monocytes # (Auto) 0.51, Eosinophils # (Auto) 0.09, Basophils # (Auto) 0.04 Test 05/03/17 20:00 05/03/17 20:07 05/03/17 20:17 05/03/17 20:35 White Blood Count 9.31 K/uL (4.8-10.8) Red Blood Count 5.12 M/uL (4.2-5.4) Hemoglobin 15.0 g/dL (12.0-16.0) Hematocrit 42.2 % (37-47) Mean Corpuscular Volume 82.4 fL (80-100) Mean Corpuscular Hemoglobin 29.3 pg (25-34) Mean Corpuscular Hemoglobin Concent 35.5 g/dl (32-36) Platelet Count 249 K/uL (130-400) Mean Platelet Volume 9.7 fL (7.4-10.4) Neutrophils (%) (Auto) 45.6 % Lymphocytes (%) (Auto) 46.5 % Monocytes (%) (Auto) 5.5 % Eosinophils (%) (Auto) 1.0 % Basophils (%) (Auto) 0.4 % Neutrophils # (Auto) 4.25 K/uL (1.4-6.5) Lymphocytes # (Auto) 4.33 K/uL (1.2-3.4) Monocytes # (Auto) 0.51 K/uL (0.11-0.59) Eosinophils # (Auto) 0.09 K/uL (0-0.5) Basophils # (Auto) 0.04 K/uL (0-0.2) RDW Standard Deviation 38.1 fL (36.4-46.3) RDW Coefficient of Variation 12.6 % (11.5-14.5) Immature Granulocyte % (Auto) 1.0 % Immature Granulocyte # (Auto) 0.09 K/uL (0.00-0.02) Magnesium Level 2.0 mg/dl (1.8-2.4) Total Bilirubin 0.4 mg/dl (0.2-1) Direct Bilirubin 0.1 mg/dl (0-0.2) Aspartate Amino Transf (AST/SGOT) 21 U/L (15-37) Alanine Aminotransferase (ALT/SGPT) 22 U/L (12-78) Alkaline Phosphatase 74 U/L (45-117) Total Creatine Kinase 94 U/L (26-192) Creatine Kinase MB 1.2 ng/ml (0.5-3.6) Creatine Kinase MB Ratio 1.3 (0-3.0) Troponin I < 0.015 ng/ml (0-0.045) Total Protein 7.7 gm/dl (6.4-8.2) Albumin 4.2 gm/dl (3.4-5.0) Thyroid Stimulating Hormone (TSH) 0.765 uIu/ml (0.300-4.500) Bedside Hemoglobin 15.3 g/dl (12.0-16.0) Bedside Hematocrit 45 % (37-47) Bedside Sodium 140 mEq/L (135-144) Bedside Potassium 2.7 mEq/L (3.3-5.0) Bedside Chloride 98 mEq/L (101-112) Bedside Total CO2 22 mEq/l (24-31) Bedside Blood Urea Nitrogen 21 mg/dl (7-18) Bedside Creatinine 0.6 mg/dl (0.6-1.3) Bedside Glucose (other) 175 mg/dl (70-99) Bedside Ionized Calcium (Amaris) 1.14 mmol/l (1.12-1.32) Bedside Glucose 158 mg/dl (70-90) Urine Color YELLOW Urine Appearance CLEAR (CLEAR) Urine pH 8.0 (4.5-7.5) Urine Specific [place] 1.031 (1.000-1.030) Urine Protein NEG (NEG) Urine Glucose (UA) NEG (NEG) Urine Ketones NEG (NEG) Urine Occult Blood NEG (NEG) Urine Nitrite NEG (NEG) Urine Bilirubin NEG (NEG) Urine Urobilinogen NEG (NEG) Urine Leukocyte Esterase NEG (NEG) Labs reviewed by ED physician. Medications Administered Medications (Trade) Dose Ordered Sig/Viviane Route Start Time Stop Time Status Last Admin Dose Admin Sodium Chloride 1,000 ml @ 999 mls/hr Q1H1M STAT IV 05/03/17 19:58 05/03/17 20:58 DC 05/03/17 20:09 999 MLS/HR Ondansetron HCl (Zofran Inj) 4 mg NOW STAT IV 05/03/17 19:58 05/03/17 20:01 DC 05/03/17 20:08 4 MG Diazepam (Valium Inj) 2.5 mg NOW STAT IV 05/03/17 19:58 05/03/17 20:01 DC 05/03/17 20:08 2.5 MG Meclizine HCl (Antivert Tab) 25 mg NOW STAT PO 05/03/17 19:58 05/03/17 20:01 DC 05/03/17 20:39 25 MG Potassium Chloride (Kcl 10 Meq / Wtr) 10 meq NOW STAT IV 05/03/17 20:25 05/03/17 20:27 DC 05/03/17 20:39 10 MEQ Potassium Chloride (Klor-Con M10) 40 meq NOW STAT PO 05/03/17 20:25 05/03/17 20:27 DC 05/03/17 20:41 40 MEQ Promethazine HCl 25 mg/Sodium Chloride 51 ml @ 204 mls/hr NOW STAT IV 05/03/17 20:25 05/03/17 20:39 DC 05/03/17 21:41 204 MLS/HR Potassium Chloride (Klor-Con M10) 40 meq NOW STAT PO 05/03/17 20:55 05/03/17 20:56 DC 05/03/17 21:05 40 MEQ Potassium Chloride (Klor-Con M10) 40 meq NOW STAT PO 05/03/17 21:40 05/03/17 21:41 DC 05/03/17 22:25 40 MEQ Metoclopramide HCl (Reglan Inj) 10 mg NOW STAT IV 05/03/17 21:59 05/03/17 22:00 DC 05/03/17 22:28 10 MG Magnesium Sulfate 1 gm/Prmx 100 ml @ 100 mls/hr NOW STAT IV 05/04/17 00:43 05/04/17 01:42 DC 05/04/17 00:43 100 MLS/HR ECG Indication: other (dizziness) Rate (beats per minute): 68 Rhythm: normal sinus Findings: no acute ischemic change, prolonged QT, no ectopy ED Course 1956: Past medical records reviewed. The patient was evaluated in room B9. A complete history and physical examination was performed. 1957: Meclizine HCl 25mg PO, Diazepam 2.5mg IV, Zofran Inj 4mg IV 2024: Promethazine HCl 25mg/Sodium Chloride 51ml@204mls/hr IV, Potassium Chloride 40meq PO, Potassium Chloride 10meq IV 2054: Potassium Chloride 40meq PO 2139: Potassium Chloride 40meq PO 2158: Reglan Inj 10mg IV 0033: Upon reexamination the patient is stable. I discussed results and treatment plan with the patient. She verbalizes agreement and understanding. I spoke with Dr. Valentine from the [facility] Hospitalist Service. The patient will be evaluated for further management. Medical Decision Differential diagnosis: Etiologies such as benign positional vertigo, dehydration, hypovolemia, anemia, tumor, infection, hypoglycemia, electrolyte abnormalities, cardiac sources, intracerebral event, toxicologic, neurologic, as well as others were entertained. This is a 56 -year-old presents emergency department complaining of severe dizziness. The patient has had episodes of vertigo in the past. She took meclizine today without doing any better. She was given Valium Zofran and Reglan and Phenergan and an attempt to get her symptoms under control. The patient is still unable to move due to the severe dizziness. She was sent for CT and CTA of the head. This did not show any acute process. I feel the patient is safe enough to be discharged home for follow-up with a primary care physician. Patient was in agreement with the treatment plan. Medication Reconcilliation Current Medication List: was personally reviewed by me Blood Pressure Screening Patient's blood pressure: Normal blood pressure Consults Time Called: 30 [facility]ing [facility] Returned Call: [phone] I discussed the patient's case with Dr. Valentine - Zoya, he has agreed to evaluate the patient for further management and care. Impression Primary Impression: Dizziness Scribe Attestation The scribe's documentation has been prepared under my direction and personally reviewed by me in its entirety. I confirm that the note above accurately reflects all work, treatment, procedures, and medical decision making performed by me. Departure Information Dispostion Being Evaluated By Hospitalist Prescriptions Omeprazole (PRILOSEC) 20 Mg Cap 1 CAP PO DAILY for 30 Days, #30 CAP 0 Refills Prov: Chantel Bolton .ANDERS 05/04/17 Sertraline HCl (Sertraline HCl) 50 Mg Tab 50 MG PO QAM for 30 Days, #30 TAB Prov: Chantel Bolton .ANDERS 05/04/17 Verapamil HCl (Verapamil HCl ER) 180 Mg Tabcr 180 MG PO QAM for 30 Days, #30 TABS Prov: Chantel Bolton .ANDERS 05/04/17 Referrals Eliud Santillan M.D. (PCP) Patient Instructions My [facility]
[2017-05-03 20:15] LABS: BASO % 0.4 %; BASO ABS # 0.04 K/uL (0-0.2); COMPLETE YES; HEMATOCRIT 42.2 % (37-47); LYMPH % 46.5 %; LYMPH ABS # 4.33 K/uL (1.2-3.4); MEAN CELL VOLUME 82.4 fL (80-100); MEAN CORPUSCULAR HEMOGLOBIN 29.3 pg (25-34); MEAN CORPUSCULAR HGB CONC 35.5 g/dl (32-36); MEAN PLATELET VOLUME 9.7 fL (7.4-10.4); MONO % 5.5 %; NEUT % 45.6 %; PLATELET COUNT 249 K/uL (130-400); RED BLOOD COUNT 5.12 M/uL (4.2-5.4); WHITE BLOOD COUNT 9.31 K/uL (4.8-10.8)
[2017-05-03 20:20] LABS: ISTAT CREATININE 0.6 mg/dl (0.6-1.3); ISTAT HEMOGLOBIN 15.3 g/dl (12.0-16.0); ISTAT IONIZED CALCIUM 1.14 mmol/l (1.12-1.32)
[2017-05-03] MEDS ORDERED: PROMETHAZINE HCL INJ 25 MG in SODIUM CHLORIDE 0.9% 50ML 50 ML IV STA (20:25)
[2017-05-03] MEDS ORDERED: POTASSIUM CHLORIDE 10 MEQ / 100ML WTR IV STA (20:25)
[2017-05-03] MEDS ORDERED: POTASSIUM CHLORIDE 10 MEQ TABCR PO STA ×3 (20:25→21:40)
--- NOTE | 2017-05-03 20:37 | DIAGNOSTIC IMAGING REPORT ---
ANGIOGRAPHY HEAD COMBO CLINICAL HISTORY: 56 years-old Female presents with acute dizziness COMPARISON STUDY: CT head 04/15/2016, CTA of the neck 01/29/2017 TECHNIQUE: Unenhanced axial CT scan of the brain is performed. Subsequently, following the IV administration of 109 cc of Optiray 320, CT angiogram of the brain was performed from the skull base to the vertex. Images are reviewed in the axial, sagittal, and coronal planes. 3-D MIPS images are created and assessed. IV contrast was administered without complication. A dose lowering technique was utilized adhering to the principles of ALARA. CT DOSE: 652.44 mGy.cm FINDINGS: CT BRAIN: There is no acute intracranial hemorrhage, midline shift, hydrocephalus, intracranial mass, territorial ischemia or abnormal extra-axial collections. Minimal bifrontal cerebral atrophy. No abnormal intra-axial or extra-axial enhancement. Mastoid air cells and middle ear cavities are clear. No calvarial fracture. Paranasal sinuses are clear. CT ANGIOGRAM OF THE BRAIN: The imaged bilateral internal carotid arteries are patent. Mild atherosclerotic plaquing of the clinoid internal carotid arteries bilaterally. The bilateral anterior and middle cerebral arteries are also patent. The vertebrobasilar system and posterior cerebral arteries are widely patent. There is no aneurysm, high-grade stenosis, or proximal branch occlusion identified. Dural sinuses appear patent. IMPRESSION: 1. No acute intracranial abnormality. No abnormal enhancement. 2. Unremarkable CTA of the head without aneurysm, dissection, high-grade stenosis or proximal branch occlusion. The above report was generated using voice recognition software. It may contain grammatical, syntax or spelling errors. Electronically signed by: Serge Oliveros M.D. 05/03/2017 8:36 PM Dictated Date/Time: 05/03/2017 8:29 PM
[2017-05-03 20:40] LABS: ALT/SGPT 22 U/L (12-78); BLOOD UREA NITROGEN 19 mg/dl (7-18); CALCIUM 9.5 mg/dl (8.5-10.1); CARBON DIOXIDE 24 mmol/L (21-32); CHLORIDE 101 mmol/L (98-107); CREATININE 0.79 mg/dl (0.60-1.20); GLUCOSE 174 mg/dl (70-99); POTASSIUM 2.7 mmol/L (3.5-5.1); SODIUM 139 mmol/L (136-145)
[2017-05-03 20:51] LABS: ALKALINE PHOSPHATASE 74 U/L (45-117); AST/SGOT 21 U/L (15-37); CKMB/CK RATIO 1.3 (0-3.0); THYROID STIMULATING HORMONE 0.765 uIu/ml (0.300-4.500)
--- NOTE | 2017-05-03 20:52 | DIAGNOSTIC IMAGING REPORT ---
CHEST ONE VIEW PORTABLE HISTORY: 56 years-old Female Pt c/o severe dizziness acute dizziness COMPARISON: Chest radiograph 01/29/2017 TECHNIQUE: Semiupright AP view of the chest FINDINGS: The cardiomediastinal and hilar silhouettes are within normal limits. No pneumothorax, pleural effusion, focal airspace consolidation or overt pulmonary edema. Bones of the chest appear grossly intact. There are degenerative changes of the spine. IMPRESSION: No acute cardiopulmonary process. The above report was generated using voice recognition software. It may contain grammatical, syntax or spelling errors. Electronically signed by: Serge Oliveros M.D. 05/03/2017 8:51 PM Dictated Date/Time: 05/03/2017 8:49 PM
[2017-05-03 21:14] LABS: URINE APPEARANCE CLEAR (CLEAR); URINE BILIRUBIN NEG (NEG); URINE COLOR YELLOW; URINE NITRITE NEG (NEG); URINE SPECIFIC GRAVITY 1.031 (1.000-1.030); UROBILINOGEN NEG (NEG)
[2017-05-03 21:20] LABS: MANUAL MICROSCOPIC REQUIRED? NO; REVIEW REQ? NO
[2017-05-03] MEDS ORDERED: VERA240C2 PO (21:31)
[2017-05-03] MEDS ORDERED: METOCLOPRAMIDE HCL INJ 5 MG/ML 2 ML VIAL IV STA (21:59)
[2017-05-04] MEDS ORDERED: MAGNESIUM SULFATE 1GM / D5W 1 GM in PREMIXED IN D5W 100 ML IV STA (00:43)
[2017-05-04] MEDS ORDERED: ONDANSETRON INJ 2 MG/ML 2 ML VIAL IV PRN (00:45)
[2017-05-04] MEDS ORDERED: POLYETHYLENE (MIRALAX) 17 GM PACK PO PRN (00:45)
[2017-05-04] MEDS ORDERED: MAGNESIUM HYDROXIDE SUSP 30 ML UDC PO PRN (00:45)
[2017-05-04] MEDS ORDERED: LORAZEPAM 2 MG/ML 1 ML VIAL IV PRN (00:45)
[2017-05-04] MEDS ORDERED: ALUMINUM/MAGNESIUM/SIMETH (MAALOX MAX) 30 ML UDC PO PRN (00:45)
[2017-05-04] MEDS ORDERED: MECLIZINE HCL 12.5 MG TAB PO PRN (00:45)
[2017-05-04] MEDS ORDERED: ACETAMINOPHEN 325 MG TAB PO PRN (00:45)
[2017-05-04] MEDS ORDERED: MAGNESIUM SULFATE 1GM / D5W 1 GM BAG ONE (00:58)
[2017-05-04] MEDS ORDERED: IV FLUIDS COMPLETED PRN (01:30)
--- NOTE | 2017-05-04 01:52 | History and Physical ---
History & Physical Date & Time of Service: May 04, 2017 at 01:20 Chief Complaint: Dizzy,Lightheaded,Numbness In Hands And Arms Primary Care Physician: Eliud Santillan M.D. History of Present Illness Source: patient 56 y/o F Hx chronic migraines, chronic vertigo, HTN, glaucoma Pt has recently suffered from persistent migraines and vertigo. Under the supervision of her MD she has been titrating up on her dose of Verapamil which initially seemed to have some mitigating effect. Earlier in the day however, her symptoms progressively worsened and were followed by nausea and several episodes of vomiting. She presented to the ER where initial labs revealed a potassium of 2.7. She had a marginal response to several antiemetics and IVF. She denies CP , SOB, visual disturbance, unilateral weakness. Past Medical/Surgical History Medical Problems: (1) HTN (2) Migraine headache (3) Thyroid disease - not treated (4) Glaucoma (5) Chronic vertigo Family History Patient reports no known family medical history. Social History Smoking Status: Never Smoker Drug Use: none Marital Status: Occupational Status: employed Immunizations Influenza Vaccine Date: Mar 29, 2010 History of Tetanus Vaccine?: Yes Tetanus Immunization Date: Aug 21, 2005 History of Pneumococcal: No History of Hepatitis B Vaccine: No Multi-Drug Resistant Organisms History of MDRO: No Allergies Coded Allergies: Adhesives (Unverified Allergy, Mild, CONTACT DERMATITIS, 05/03/17) Shrimp (Unverified Allergy, Mild, RASH, 05/03/17) Desloratadine (Verified Allergy, Unknown, RASH, 05/03/17) Loratadine (Verified Allergy, Unknown, rash, 05/03/17) Shellfish (Verified Allergy, Unknown, RASH, 05/03/17) Amlodipine (Verified Adverse Reaction, Intermediate, SWELLING IN FEET, ) Lisinopril (Verified Adverse Reaction, Intermediate, SWELLING IN FEET, ) Home Medications Scheduled Fluticasone Propionate (Fluticasone Propionate), 2 SPRAYS DARRIN DAILY Latanoprost (Latanoprost), 1 DROP OPB HS Multivitamin (Multivitamin), 1 TAB PO QAM Verapamil Hcl (Verapamil Hcl Er), 1 CAP PO DAILY Scheduled PRN Meclizine Hcl (Meclizine Hcl), 12.5 MG PO TID PRN for Nausea Review of Systems Constitutional: No fever, No chills, No sweats Eyes: No worsening of vision ENT: No hearing loss, No nasal symptoms Respiratory: No cough, No sputum, No wheezing Cardiovascular: No chest pain, No orthopnea, No PND Abdomen: + pain (has had some abdominal discomfort for a few months), + nausea , + vomiting Musculoskeletal: No joint pain Genitourinary - Female: No dysuria, No urinary frequency, No urinary urgency Neurologic: + vertigo, No memory loss, No paralysis, No weakness Psychiatric: No depression symptoms Endocrine: No fatigue Hematologic / Lymphatic: No abnormal bleeding/bruising Integumentary: No rash Allergic / Immunologic: No environmental allergies Physical Exam Vital Signs Date Time Temp Pulse Resp B/P (MAP) Pulse Ox O2 Delivery O2 Flow Rate FiO2 05/04/17 00:39 75 14 122/82 95 Room Air 05/04/17 00:13 78 05/03/17 23:25 79 16 129/88 97 Room Air 05/03/17 21:42 71 16 150/95 99 Room Air 05/03/17 20:33 67 05/03/17 20:31 98 Room Air 05/03/17 20:31 98 Room Air 05/03/17 19:49 36.5 98 18 157/97 97 Room Air General Appearance: WD/WN, no apparent distress Head: normocephalic Eyes: normal inspection, EOMI ENT: normal ENT inspection, pharynx normal Neck: supple, no JVD Respiratory/Chest: chest non-tender, lungs clear Cardiovascular: regular rate, rhythm, normal peripheral pulses Abdomen/GI: normal bowel sounds, non tender, soft Back: normal inspection, no CVA tenderness, no muscle spasm, normal range of motion Extremities/Musculoskelatal: normal inspection, no calf tenderness, normal capillary refill Neurologic/Psych: + pertinent finding (Pt appears slightly photophobic - no facial asymmetry or nystagmus - no acute motor deficits ) Skin: normal color, warm/dry, no rash Diagnostics Laboratory Results Results Past 24 Hours Test 05/03/17 20:00 05/03/17 20:07 05/03/17 20:17 05/03/17 20:35 Range/Units White Blood Count 9.31 4.8-10.8 K/uL Red Blood Count 5.12 4.2-5.4 M/uL Hemoglobin 15.0 12.0-16.0 g/dL Hematocrit 42.2 37-47 % Mean Corpuscular Volume 82.4 80-100 fL Mean Corpuscular Hemoglobin 29.3 25-34 pg Mean Corpuscular Hemoglobin Concent 35.5 32-36 g/dl Platelet Count 249 130-400 K/uL Mean Platelet Volume 9.7 7.4-10.4 fL Neutrophils (%) (Auto) 45.6 % Lymphocytes (%) (Auto) 46.5 % Monocytes (%) (Auto) 5.5 % Eosinophils (%) (Auto) 1.0 % Basophils (%) (Auto) 0.4 % Neutrophils # (Auto) 4.25 1.4-6.5 K/uL Lymphocytes # (Auto) 4.33 1.2-3.4 K/uL Monocytes # (Auto) 0.51 0.11-0.59 K/uL Eosinophils # (Auto) 0.09 0-0.5 K/uL Basophils # (Auto) 0.04 0-0.2 K/uL RDW Standard Deviation 38.1 36.4-46.3 fL RDW Coefficient of Variation 12.6 11.5-14.5 % Immature Granulocyte % (Auto) 1.0 % Immature Granulocyte # (Auto) 0.09 0.00-0.02 K/uL Sodium Level 139 136-145 mmol/L Potassium Level 2.7 3.5-5.1 mmol/L Chloride Level 101 98-107 mmol/L Carbon Dioxide Level 24 21-32 mmol/L Anion Gap 14.0 24.0 16-25 mmol/L Blood Urea Nitrogen 19 7-18 mg/dl Creatinine 0.79 0.60-1.20 mg/dl Est Creatinine Clear Calc Drug Dose 62.9 ml/min Estimated GFR () 97.0 Estimated GFR (Non- 83.7 BUN/Creatinine Ratio 24.0 10-20 Random Glucose 174 70-99 mg/dl Calcium Level 9.5 8.5-10.1 mg/dl Magnesium Level 2.0 1.8-2.4 mg/dl Total Bilirubin 0.4 0.2-1 mg/dl Direct Bilirubin 0.1 0-0.2 mg/dl Aspartate Amino Transf (AST/SGOT) 21 15-37 U/L Alanine Aminotransferase (ALT/SGPT) 22 12-78 U/L Alkaline Phosphatase 74 45-117 U/L Total Creatine Kinase 94 26-192 U/L Creatine Kinase MB 1.2 0.5-3.6 ng/ml Creatine Kinase MB Ratio 1.3 0-3.0 Troponin I < 0.015 0-0.045 ng/ml Total Protein 7.7 6.4-8.2 gm/dl Albumin 4.2 3.4-5.0 gm/dl Thyroid Stimulating Hormone (TSH) 0.765 0.300-4.500 uIu/ml Bedside Hemoglobin 15.3 12.0-16.0 g/dl Bedside Hematocrit 45 37-47 % Bedside Sodium 140 135-144 mEq/L Bedside Potassium 2.7 3.3-5.0 mEq/L Bedside Chloride 98 101-112 mEq/L Bedside Total CO2 22 24-31 mEq/l Bedside Blood Urea Nitrogen 21 7-18 mg/dl Bedside Creatinine 0.6 0.6-1.3 mg/dl Bedside Glucose (other) 175 70-99 mg/dl Bedside Ionized Calcium (Amaris) 1.14 1.12-1.32 mmol/l Bedside Glucose 158 70-90 mg/dl Urine Color YELLOW Urine Appearance CLEAR CLEAR Urine pH 8.0 4.5-7.5 Urine Specific [place] 1.031 1.000-1.030 Urine Protein NEG NEG Urine Glucose (UA) NEG NEG Urine Ketones NEG NEG Urine Occult Blood NEG NEG Urine Nitrite NEG NEG Urine Bilirubin NEG NEG Urine Urobilinogen NEG NEG Urine Leukocyte Esterase NEG NEG Diagnostic Radiology CTA head - negative for acute findings EKG Sinus - QT prolongation present Impression Assessment and Plan 56 y/o F Hx chronic migraines, chronic vertigo, HTN, glaucoma Pt has recently suffered from persistent migraines and vertigo. Under the supervision of her MD she has been titrating up on her dose of Verapamil which initially seemed to have some mitigating effect. Earlier in the day however, her symptoms progressively worsened and were followed by nausea and several episodes of vomiting. She presented to the ER where initial labs revealed a potassium of 2.7. She had a marginal response to several antiemetics and IVF. She denies CP , SOB, visual disturbance, unilateral weakness. 1) Dizziness/nausea/vomiting - acute on chronic - IVF, Ativan, antiemetics provided. Symptoms/exam are not consistent with acute cerebrovascular event, CTA obtained in ER was negative. As she was titrating her Verapamil upward, we cannot r/o a reaction to the higher dose. She has taken a total of 240mg for the last 3 days. We will reduce the dose to 80 - her original dose. 2) Hypokalemia - repleted - repeat BMP pending for AM - received Mg 3) HTN - appears she treats this with Verapamil to treat migraines simultaneously. She is normotensive on admission. We will monitor her BP as the dose is decreased. 4) Glaucoma - cont Latanoprost. 5) Persistent migraine - we will consult neurology as she does not appear to be improving over the past few weeks. We will provide a dose of steroids to gauge effect. 6) QT prolongation - D/Cd antiemetics aside from PRN Reglan. K corrected, MG provided - repeat EKG AM. Assigned to telemetry. Full code - SCDs Total time for this admit including review of labs, meds, records, imaging - discussion with pt and ER attending - 38 min Level of Care Telemetry Resuscitation Status FULL RESUSCITATION VTE Prophylaxis VTE Risk Assessment Done? Y/N: Yes Risk Level: Low Given or contraindicated: SCD's
[2017-05-04] MEDS ORDERED: METOCLOPRAMIDE HCL INJ 5 MG/ML 2 ML VIAL IV PRN (02:00)
[2017-05-04] MEDS: NSS + 20MEQ KCL 1000ML 1,000 ML IV SCH ×2 (02:30→09:35)
[2017-05-04] MEDS ORDERED: METHYLPREDNISOLONE IV 100 MG in SYRINGE 0 ML IV SCH (02:30)
[2017-05-04 03:10] VITALS: BP 122/77; PULSE 61; TEMP 36.7; O2SAT 95; Ht 157.5 cm; Wt 53.0 kg
[2017-05-04 04:33] VITALS: BP 115/72; PULSE 63; TEMP 36.8; O2SAT 96
[2017-05-04 06:20] LABS: BUN/CREATININE RATIO 21.5 (10-20); CALCIUM 8.2 mg/dl (8.5-10.1); CREATININE 0.53 mg/dl (0.60-1.20); POTASSIUM 4.1 mmol/L (3.5-5.1)
[2017-05-04 07:30] VITALS: BP 124/78; PULSE 62; TEMP 39.4; O2SAT 94
[2017-05-04] MEDS ORDERED: VERAPAMIL HCL 240 MG TABCR PO SCH (09:00)
[2017-05-04 10:49] VITALS: TEMP 36.7
[2017-05-04] MEDS ORDERED: VERAPAMIL HCL 120 MG TABCR PO ONE (10:54)
--- NOTE | 2017-05-04 10:56 | Neurology Consultation ---
Neurology Consultation Date of Consultation: May 04, 2017. Attending Physician: Rodrigo Duarte D.O. Primary Care Physician: Eliud Santillan M.D. Reason for Consultation: Patient is a 56-year-old, who was asked to see the request of Dr. Valentine, for neurologic consultation regarding acute vertigo. Patient's is at bedside. History of Present Illness Source: patient, family, caregiver, clinic records, hospital records This patient has had a history of dizziness since her mid 20s. It was typically mild and intermittent but has been more significant in her 50s. I see that she was admitted in August 2010 for this dizziness problem. In March of 2014, she was admitted with severe dizziness, nausea, and vomiting. She saw Dr. Fritz who diagnosed benign positional paroxysmal vertigo. Meclizine did help. At that time, MRI of the brain, MR angiography of the head, MR angiography of the neck, and carotid ultrasound were unremarkable. Laboratory studies including Lyme antibody titers were unremarkable as well. Because of neck pain, in January of [address] angiography which was unremarkable and showed no dissection. Patient has a history of migraine headaches since her early 20s. Over the last year they have occurred about once or twice a week up until this summer. Typical headache with a occur without warning but stress is the usual trigger. She will start with a left temporal or bioccipital pain peaking in less than an hour. It will be a severe pressure and she will notice rapid heart rate. Occasionally she can be dizzy with a headache which would cruise some nausea or vomiting, but most the time she does not have these symptoms. She does not really have photophobia or sonophobia either. In December of [address] Fritz as an outpatient who initiated verapamil 120 milligrams ER daily. This helped a little bit and in January it was increased to 180 ER daily. This helped considerably and she remembers 2 milder headaches in February and no headaches since. She has no side effects to verapamil but it might give her some constipation. Her dizziness has remained significant this summer occurring once or twice a week lasting hours at a time. She has had tended his right greater than left side for the last 2-3 years but does not have any hearing loss. Head movement tends to make the dizziness worse but she can occasionally have it being still. Meclizine will help. When she gets vertiginous feelings it either a spinning whirling sensation or the environment moving like she is in a boat. She will feel pulled backwards if she tries to walk with a significant dizziness. On May 03, the patient had a significant attack of vertigo accompanied by nausea vomiting and a general sense of shaking. She denies migraine or headache. She felt that her hands were numb, she was sweaty and breathing hard. She did not feel overly anxious. On May 03, she arrived at the emergency room at 1949 hours, with a temperature of 36.5, pulse 98, respiratory rate 18, blood pressure 157/97, and O2 saturation 97 percent. In the emergency room she was extremely vertiginous and could not move in a direction without making her vertigo and nausea worse. She had no focal neurologic findings on exam however. CT scan of the head was unremarkable. CT angiography of the head was unremarkable as well. Laboratory studies revealed a low potassium at 2.7 and a glucose of 174 but other tests were unremarkable. I reviewed all of these imaging and lab reports with the patient and her who was at the bedside. Today her vertigo is much better. She still has some vertigo with standing and moving but it is much less than yesterday. She has no headache, speech problems , confusion, pain, weakness, or numbness of a new nature. Patient has had some depression which she says has been present since 2013. Work stress is the biggest source of her mood issues. Patient has some chronic low back pain and is post lumbar laminectomy for to remove an L4-5 free disc fragment back in November [address] Simms. Is cured her left sciatic pain but she still has some low back pain. 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 She originally is from [facility] and has been in the [facility] since 2000. She has been working at [employer] for the last 7 years in the [employer] and [employer] departments Smoking Status: Never smoker Smokeless Tobacco Use: No Alcohol Use: none Drug Use: none Marital Status: Housing Status: lives with family Occupation Status: employed Allergies Coded Allergies: Adhesives (Unverified Allergy, Mild, CONTACT DERMATITIS, 05/03/17) Shrimp (Unverified Allergy, Mild, RASH, 05/03/17) Desloratadine (Verified Allergy, Unknown, RASH, 05/03/17) Loratadine (Verified Allergy, Unknown, rash, 05/03/17) Shellfish (Verified Allergy, Unknown, RASH, 05/03/17) Amlodipine (Verified Adverse Reaction, Intermediate, SWELLING IN FEET, ) Lisinopril (Verified Adverse Reaction, Intermediate, SWELLING IN FEET, ) Current Inpatient Medications Current Inpatient Medications Medications (Trade) Dose Ordered Sig/Viviane Route Start Time Stop Time Status Last Admin Dose Admin Acetaminophen (Tylenol Tab) 650 mg Q4H PRN PO 05/04/17 00:45 06/03/17 00:44 Al Hydrox/Mg Hydrox/Simethicone (Maalox Max Susp) 15 ml Q4H PRN PO 05/04/17 00:45 06/03/17 00:44 Magnesium Hydroxide (Milk Of Magnesia Susp) 30 ml Q12H PRN PO 05/04/17 00:45 06/03/17 00:44 Polyethylene (Miralax Powder Packet) 17 gm DAILY PRN PO 05/04/17 00:45 06/03/17 00:44 Latanoprost (Xalatan Oph Soln) 1 drops HS OPB 05/04/17 21:00 06/03/17 20:59 Lorazepam (Ativan Inj) 0.5 mg Q4H PRN IV 05/04/17 00:45 06/03/17 00:44 Miscellaneous (Iv Fluids Completed) 1 ea PRN PRN N/A 05/04/17 01:30 05/04/18 01:29 Potassium Chloride/Sodium Chloride 1,000 ml @ 150 mls/hr Q6H40M IV 05/04/17 02:30 05/04/17 15:49 05/04/17 09:35 150 MLS/HR Metoclopramide HCl (Reglan Inj) 5 mg Q6H PRN IV 05/04/17 02:00 06/03/17 01:59 Review of Systems Constitutional: No fever, No weakness, No fatigue Eyes: No worsening of vision, No diplopia ENT: + tinnitus, No hearing loss, No trouble swallowing Respiratory: No cough, No shortness of breath Cardiovascular: No chest pain, No palpitations Abdomen: + constipation, No pain, No nausea, No vomiting, No diarrhea Musculoskeletal: + joint pain, No muscle pain Genitourinary - Female: No dysuria, No urinary incontinence Neurologic: + vertigo, + balance problems, No memory loss, No weakness, No numbness/tingling Psychiatric: + depression symptoms, + anxiety Endocrine: No fatigue Hematologic / Lymphatic: No abnormal bleeding/bruising Integumentary: No rash Allergic / Immunologic: No hives Physical Exam Vital Signs (Past 24 Hrs): Date Time Temp Pulse Resp B/P (MAP) Pulse Ox O2 Delivery O2 Flow Rate FiO2 05/04/17 07:45 Room Air 05/04/17 07:30 39.4 62 16 124/78 (93) 94 Room Air 05/04/17 04:33 36.8 63 16 115/72 (86) 96 Room Air 05/04/17 04:00 Room Air 05/04/17 03:10 36.7 61 16 122/77 95 Room Air 05/04/17 01:38 70 16 125/81 95 Room Air 05/04/17 00:39 75 14 122/82 95 Room Air 05/04/17 00:13 78 05/03/17 23:25 79 16 129/88 97 Room Air 05/03/17 21:42 71 16 150/95 99 Room Air 05/03/17 20:33 67 10/25/17 20:31 98 Room Air 05/03/17 20:31 98 Room Air 05/03/17 19:49 36.5 98 18 157/97 97 Room Air Patient is right-handed. The patient is awake and alert. Speech is normal without aphasia or dysarthria. Mentation and thought processes are intact with orientation and normal fund of knowledge. Mood and affect are normal and appropriate. Appearance and grooming are normal. Long and short-term memory are intact. The discs are sharp with positive venous pulsations. There are no exudates, hemorrhages, or blood vessel changes seen. Pupils are 4mm bilaterally and reactive to light. Extraocular eye muscles are intact without nystagmus. With type sit the patient up, she complains of some vertigo but I do not note any specific nystagmus with head movement. Visual acuity and visual whitfield seem normal grossly to confrontation. There are no deficits to sensation of the face bilaterally. Corneal reflexes are positive bilaterally. Facial strength and symmetry is normal bilaterally. Hearing seems intact grossly to voice and finger rub. Palate moves well without asymmetry. There is normal sternocleidomastoid and trapezius strength bilaterally. Tongue is midline with good strength bilaterally. Neck is with full range of motion without discomfort. There are no cervical bruits. There are no cranial or ocular bruits. Heart is without murmur. Cervical, thoracic, and lumbar spine are nontender to palpation. Gait is not tested, but stance sitting up in bed is reasonable. With outstretched arms there is no drift. There are no resting, postural, or action tremors. There is no ataxia with [id number] testing. There is good facility in the hands. There are no abnormal involuntary movements noted. 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 Motor strength is 5/5 diffusely in the legs bilaterally including hip flexors, quadriceps, hamstring, gastrocnemius, tibialis anterior, tibialis posterior, and peroneii muscles bilaterally. Toe extensors are normal and there is good bulk in the extensor digitorum brevis muscle bilaterally. The limbs have good tone without rigidity or spasticity, and there is no atrophy noted. Muscle bulk is normal, there is no tenderness, no myotonia noted to percussion, and no fasciculations seen. Sensory examination is intact to pin and touch throughout all four limbs. Reflexes are 1/4 in the biceps, triceps, brachioradialis, quadriceps, and Achilles tendons bilaterally. Toes are downgoing with plantar stimulation bilaterally. Peripheral pulses are present and of normal quality distally in all four limbs. There is no peripheral edema noted. Laboratory Results Past 24 Hours: 05/03/17 20:00 Red Blood Count 5.12, Mean Corpuscular Volume 82.4, Mean Corpuscular Hemoglobin 29.3, Mean Corpuscular Hemoglobin Concent 35.5, Mean Platelet Volume 9.7, Neutrophils (%) (Auto) 45.6, Lymphocytes (%) (Auto) 46.5, Monocytes (%) (Auto) 5.5, Eosinophils (%) (Auto) 1.0, Basophils (%) (Auto) 0.4, Neutrophils # (Auto) 4.25, Lymphocytes # (Auto) 4.33, Monocytes # (Auto) 0.51, Eosinophils # (Auto) 0.09, Basophils # (Auto) 0.04 05/04/17 05:33 Test 05/03/17 20:00 05/03/17 20:07 05/03/17 20:17 05/03/17 20:35 White Blood Count 9.31 K/uL (4.8-10.8) Red Blood Count 5.12 M/uL (4.2-5.4) Hemoglobin 15.0 g/dL (12.0-16.0) Hematocrit 42.2 % (37-47) Mean Corpuscular Volume 82.4 fL (80-100) Mean Corpuscular Hemoglobin 29.3 pg (25-34) Mean Corpuscular Hemoglobin Concent 35.5 g/dl (32-36) Platelet Count 249 K/uL (130-400) Mean Platelet Volume 9.7 fL (7.4-10.4) Neutrophils (%) (Auto) 45.6 % Lymphocytes (%) (Auto) 46.5 % Monocytes (%) (Auto) 5.5 % Eosinophils (%) (Auto) 1.0 % Basophils (%) (Auto) 0.4 % Neutrophils # (Auto) 4.25 K/uL (1.4-6.5) Lymphocytes # (Auto) 4.33 K/uL (1.2-3.4) Monocytes # (Auto) 0.51 K/uL (0.11-0.59) Eosinophils # (Auto) 0.09 K/uL (0-0.5) Basophils # (Auto) 0.04 K/uL (0-0.2) RDW Standard Deviation 38.1 fL (36.4-46.3) RDW Coefficient of Variation 12.6 % (11.5-14.5) Immature Granulocyte % (Auto) 1.0 % Immature Granulocyte # (Auto) 0.09 K/uL (0.00-0.02) Magnesium Level 2.0 mg/dl (1.8-2.4) Total Bilirubin 0.4 mg/dl (0.2-1) Direct Bilirubin 0.1 mg/dl (0-0.2) Aspartate Amino Transf (AST/SGOT) 21 U/L (15-37) Alanine Aminotransferase (ALT/SGPT) 22 U/L (12-78) Alkaline Phosphatase 74 U/L (45-117) Total Creatine Kinase 94 U/L (26-192) Creatine Kinase MB 1.2 ng/ml (0.5-3.6) Creatine Kinase MB Ratio 1.3 (0-3.0) Troponin I < 0.015 ng/ml (0-0.045) Total Protein 7.7 gm/dl (6.4-8.2) Albumin 4.2 gm/dl (3.4-5.0) Thyroid Stimulating Hormone (TSH) 0.765 uIu/ml (0.300-4.500) Bedside Hemoglobin 15.3 g/dl (12.0-16.0) Bedside Hematocrit 45 % (37-47) Bedside Sodium 140 mEq/L (135-144) Bedside Potassium 2.7 mEq/L (3.3-5.0) Bedside Chloride 98 mEq/L (101-112) Bedside Total CO2 22 mEq/l (24-31) Bedside Blood Urea Nitrogen 21 mg/dl (7-18) Bedside Creatinine 0.6 mg/dl (0.6-1.3) Bedside Glucose (other) 175 mg/dl (70-99) Bedside Ionized Calcium (Amaris) 1.14 mmol/l (1.12-1.32) Bedside Glucose 158 mg/dl (70-90) Urine Color YELLOW Urine Appearance CLEAR (CLEAR) Urine pH 8.0 (4.5-7.5) Urine Specific [place] 1.031 (1.000-1.030) Urine Protein NEG (NEG) Urine Glucose (UA) NEG (NEG) Urine Ketones NEG (NEG) Urine Occult Blood NEG (NEG) Urine Nitrite NEG (NEG) Urine Bilirubin NEG (NEG) Urine Urobilinogen NEG (NEG) Urine Leukocyte Esterase NEG (NEG) Test 05/04/17 05:33 Anion Gap 7.0 mmol/L (3-11) Est Creatinine Clear Calc Drug Dose 93.8 ml/min Estimated GFR () 123.0 Estimated GFR (Non- 106.1 BUN/Creatinine Ratio 21.5 (10-20) Calcium Level 8.2 mg/dl (8.5-10.1) Hepatitis C Antibody Screen NEG (NEG) Impression 1. Acute vertigo May 03, on the background of chronic intermittent vertigo. This is likely of inner ear origin and is consistent with a benign paroxysmal positional vertigo. She has chronic tinnitus right greater than left ear also. She has no hearing loss by history or by routine exam at the bedside. Meclizine does help but does not prevent the vertigo. She is markedly improved today compared to admission. She has no focal neurologic findings, meningeal signs, or encephalopathy. 2. History of migraine and other headaches. These have been remarkably improved with long-acting verapamil. She has no migraine or headache today. 3. Chronic low back pain, post L4-5 disc free fragment removal in November of 2016, stable 4. History of hypertension with elevated blood pressure on admission. 5. History of depression, currently on no medication. Plan 1. Keep verapamil at 180 milligrams SR daily. 2. Initiate sertraline 50 milligrams each evening, an effort to prevent vertiginous attacks. I have had more success with this medication for out patients with chronic intermittent vertigo than any other medication. Sertraline should also help her mood as well. After 2 or 3 weeks this could be titrated as needed to a maximum of 200 milligrams daily. 3. I see no need for any additional neurologic testing or treatment at this time. I spoke with Dr. Duarte regarding this case including differential diagnosis and treatment options. Between this, record review, and discussing diagnosis and treatment with the patient and her at bedside, I spent a total of 60 minutes with the patient.
[2017-05-04 11:08] VITALS: BP 128/79; PULSE 64; TEMP 36.9; O2SAT 92
[2017-05-04] MEDS ORDERED: SERTRALINE HCL 50 MG TAB PO ONE (12:00)
[2017-05-04] MEDS ORDERED: VRPSR180 PO (13:24)
[2017-05-04] MEDS ORDERED: ZLF50 PO (13:24)
[2017-05-04] MEDS ORDERED: OMEP20CA9 PO (13:41)
--- NOTE | 2017-05-04 13:55 | Discharge Instructions ---
Discharge Instructions Date of Service May 04, 2017. Admission Reason for Admission: Hypokalemia, Nausea And Vomiting Discharge Discharge Diagnosis / Problem: Hypokalemia, nausea and vomiting Discharge Goals Goal(s): Decrease discomfort, Improve function, Diagnostic testing, Therapeutic intervention Activity Recommendations Activity Limitations: resume your previous activity (as tolerated) . Instructions / Follow-Up Instructions / Follow-Up You were admitted to the hospital with nausea and vomiting and was found to have a low potassium level of 2.7. Your potassium was replaced and is now back to normal, and your vomiting has resolved. Neurology was consulted regarding your migraines and recommended that you go back down to the verapamil 180 mg dose. The neurologist also recommended starting a new medication called sertraline (Zoloft) to help prevent vertigo/dizziness. Due to your chronic abdominal pain, which is concerning for peptic ulcer disease, you are also being discharged on a new medication and will follow up with your primary care provider. You may later need an upper endoscopy to further evaluate this issue. Medications: *STOP verapamil 240 mg. Please take verapamil 180 mg by mouth daily instead. *Please take sertraline (Zoloft) 50 mg by mouth daily. This is to help prevent vertigo. After a few weeks, your primary care provider may titrate this dose up to a maximum of 200 mg. *Please take omeprazole (Prilosec) 20 mg by mouth daily. This is a medication for acid reflux and helps treat your possible peptic ulcer disease. *Continue your home medications as prescribed. Follow up: *You will be scheduled to follow up with your primary care provider. They can follow with you and determine if the omeprazole is helping. You may later need a referral to gastroenterology for an upper endoscopy for further evaluation. Please seek medical attention if you experience fevers, chills, sweats, loss of consciousness, chest pain, shortness of breath, nausea, vomiting, numbness or tingling. Current Hospital Diet Patient's current hospital diet: AHA Diet (Heart Healthy) Discharge Diet Recommended Diet: AHA Diet (Heart Healthy) Pending Studies Studies pending at discharge: no Medical Emergencies . Who to Call and When: Medical Emergencies: If at any time you feel your situation is an emergency, please call 911 immediately. . Non-Emergent Contact Non-Emergency issues call your: Primary Care Provider Call Non-Emergent contact if: you have a fever, you have any medication questions . Past History Medical & Surgical History: (1) Hypokalemia (2) Nausea and vomiting . "Provider Documentation" section prepared by Chantel Bolton. . VTE Core Measure Inpt VTE Proph given/why not?: SCD's
[2017-05-04 13:58] VITALS: BP 128/79; PULSE 64; TEMP 36.9; O2SAT 92
--- NOTE | 2017-05-04 14:18 | Discharge Summary ---
Discharge Summary Date of Service May 04, 2017. (Chantel Bolton PA-C) Discharge Summary Admission Date: May 04, 2017 at 00:48 Discharge Date: May 04, 2017 Discharge Disposition: Home Principal Diagnosis: Hypokalemia Problems/Secondary Diagnoses: Nausea, vomiting Chronic migraine Chronic vertigo HTN Immunizations: Influenza Vaccine Date: Mar 29, 2010 History of Tetanus Vaccine?: Yes Tetanus Immunization Date: Aug 21, 2005 History of Pneumococcal: No History of Hepatitis B Vaccine: No Procedures: ANGIOGRAPHY HEAD COMBO CLINICAL HISTORY: 56 years-old Female presents with acute dizziness COMPARISON STUDY: CT head 04/15/2016, CTA of the neck 01/29/2017 TECHNIQUE: Unenhanced axial CT scan of the brain is performed. Subsequently, following the IV administration of 109 cc of Optiray 320, CT angiogram of the brain was performed from the skull base to the vertex. Images are reviewed in the axial, sagittal, and coronal planes. 3-D MIPS images are created and assessed. IV contrast was administered without complication. A dose lowering technique was utilized adhering to the principles of ALARA. CT DOSE: 652.44 mGy.cm FINDINGS: CT BRAIN: There is no acute intracranial hemorrhage, midline shift, hydrocephalus, intracranial mass, territorial ischemia or abnormal extra-axial collections. Minimal bifrontal cerebral atrophy. No abnormal intra-axial or extra-axial enhancement. Mastoid air cells and middle ear cavities are clear. No calvarial fracture. Paranasal sinuses are clear. CT ANGIOGRAM OF THE BRAIN: The imaged bilateral internal carotid arteries are patent. Mild atherosclerotic plaquing of the clinoid internal carotid arteries bilaterally. The bilateral anterior and middle cerebral arteries are also patent. The vertebrobasilar system and posterior cerebral arteries are widely patent. There is no aneurysm, high-grade stenosis, or proximal branch occlusion identified. Dural sinuses appear patent. IMPRESSION: 1. No acute intracranial abnormality. No abnormal enhancement. 2. Unremarkable CTA of the head without aneurysm, dissection, high-grade stenosis or proximal branch occlusion. CHEST ONE VIEW PORTABLE HISTORY: 56 years-old Female Pt c/o severe dizziness acute dizziness COMPARISON: Chest radiograph 01/29/2017 TECHNIQUE: Semiupright AP view of the chest FINDINGS: The cardiomediastinal and hilar silhouettes are within normal limits. No pneumothorax, pleural effusion, focal airspace consolidation or overt pulmonary edema. Bones of the chest appear grossly intact. There are degenerative changes of the spine. IMPRESSION: No acute cardiopulmonary process. Consultations: Neurology--Dr. Palacios (Chantel Bolton ., PA-C) Medication Reconciliation New Medications: Omeprazole (Prilosec) 20 Mg Cap 1 CAP PO DAILY for 30 Days, #30 CAP 0 Refills Sertraline HCl (Sertraline HCl) 50 Mg Tab 50 MG PO QAM for 30 Days, #30 TAB Verapamil HCl (Verapamil HCl ER) 180 Mg Tabcr 180 MG PO QAM for 30 Days, #30 TABS Continued Medications: Fluticasone Propionate (Fluticasone Propionate) 120 Sprays/6000 Mcg Inha 2 SPRAYS DARRIN DAILY Latanoprost (Latanoprost) 37 Drops/2.5 Ml Soln 1 DROP OPB HS Meclizine Hcl (Meclizine Hcl) 25 Mg Tab 12.5 MG PO TID PRN for Nausea, TAB Multivitamin (Multivitamin) Tab 1 TAB PO QAM, TAB Discontinued Medications: Verapamil Hcl (Verapamil Hcl Er) 240 Mg Cap 1 CAP PO DAILY Discharge Exam The patient reports feeling much better. She states she had some chills last night but this resolved this morning. She did have some dizziness and lightheadedness this morning as well, but not as bad as prior to arrival. Her dizziness is often accompanied with transient numbness/tingling in her hands bilaterally, but resolves when the dizziness resolves. She denies any nausea or vomiting today. She complains of a dull 3/10 abdominal pain that she states has been intermittent for the last month. She has not had this worked up at all yet. The patient denies fevers, chills, sweats, chest pain, palpitations, claudication, cough, wheezing, shortness of breath, nausea, vomiting, dysuria, hematuria, urinary retention, paralysis, weakness. Review of Systems: Constitutional: No fever, No chills, No sweats Eyes: No worsening of vision, No eye pain, No diplopia ENT: No hearing loss, No sore throat, No trouble swallowing Respiratory: No cough, No shortness of breath Cardiovascular: No chest pain, No claudication, No palpitations Abdomen: + pain, No nausea, No vomiting Musculoskeletal: No joint pain, No muscle pain, No calf pain Genitourinary - Female: No dysuria, No urinary retention, No hematuria Neurologic: + numbness/tingling (transient), No paralysis, No weakness Integumentary: No rash, No itch, No color change Physical Exam: General Appearance: WD/WN, no apparent distress Eyes: normal inspection, PERRL, EOMI, + pertinent finding (pt reports dizziness with lateral gaze when testing EOM) ENT: normal ENT inspection, hearing grossly normal, pharynx normal Neck: supple, no JVD, trachea midline Respiratory/Chest: lungs clear, normal breath sounds, no respiratory distress Cardiovascular: regular rate, rhythm, no gallop, no murmur Abdomen / GI: normal bowel sounds, soft, + tenderness (mild epigastric tenderness) Extremities: normal inspection, no calf tenderness, no pedal edema Neurologic/Psychiatric: alert, normal mood/affect, oriented x 3 Skin: normal color, warm/dry, no rash (Chantel Bolton, ANDERS) Hospital Course 56 y/o female with a history of chronic migraines, chronic vertigo, HTN, and glaucoma who presents with worsening vertigo, nausea and vomiting. The patient has was recently titrated up on her verapamil dose from 180 to 240 about 3 days prior to arrival. Potassium was found to be 2.7 on arrival. Hypokalemia--resolved -Admit to telemetry for observation. No acute events overnight. Pt in sinus rhythm with HR in 60s. -Initial EKG with QT prolongation, QTc 516. -Repeat EKG shows improvement, QTc 425 -Potassium repleted with PO and IV sources and IVF -Magnesium 2.0 Chronic vertigo and migraines with acute worsening, nausea and vomiting-- improved -Neurology consulted, appreciate recs: Decrease verapamil back to 180 mg PO qd. Start sertraline 50 mg PO qd to help prevent vertigo. After 2-3 weeks, can titrate up to max 200 mg PO qd. -Head CTA negative -Verapamil 180 mg PO qd, Zoloft 50 mg PO qd on d/c HTN--stable -Verapamil as above Glaucoma -Continue latanoprost drops Abdominal pain--may be PUD -Start Prilosec 20 mg PO qd on discharge, f/u with PCP. Consider outpt EGD down the road DVT prophylaxis -SCDs Code Status -Level I, FULL RESUSCITATION STATUS Total Time Spent: Greater than 30 minutes This includes examination of the patient, discharge planning, medication reconciliation, and communication with other providers. (Chantel Bolton ., PA-C) i personally examined pt and verified all pereyra points w A Hoang PAC feeling better. does note epigastric pain ongoing for a while vitals noted nad breathing unlabored no pallor or icterus, (+) epigastric ttp no guarding no rebound hypokalemia/nausea/vomiting / long QT - improved. stable for home chronic vertigo - trial of sertraline, outpt f/u epigastric pain - c/w PUD spectrum. trial of omeprazole, EGD if doesn't improve in a few weeks on PPI or if worsens when PPI stopped. stable for home (Rodrigo Duarte, D.O.) Discharge Instructions Please refer to the electronic Patient Visit Report (Discharge Instructions) for additional information. (Chantel Bolton ., PA-C) Additional Copies To Eliud Santillan M.D.
[2017-05-04] MEDS ORDERED: LATANOPROST 0.005% OP SOLN 2.5 ML BTL OPB SCH (21:00)
[2017-05-05] MEDS ORDERED: SERTRALINE HCL 50 MG TAB PO SCH (09:00)
[2017-05-05] MEDS ORDERED: VERAPAMIL HCL 180 MG TABCR PO SCH (09:00)
[2017-05-05] MEDS ORDERED: VERAPAMIL HCL 120 MG TABCR PO SCH (09:00)
== END 2017-05-04 14:35 | disposition home or self-care (01) ==
LOC: C.EDB 19:49 → C.MED 05-04 00:48 → ENRESERV 05-04 01:07
PROVIDERS: ADMIT Internal Medicine; ATTEND Family Medicine
DX: E87.6 Hypokalemia (principal); R11.2 Nausea with vomiting, unspecified; G43.909 Migraine, unspecified, not intractable, without status migrainosus; R42 Dizziness and giddiness; I10 Essential (primary) hypertension; E78.00 Pure hypercholesterolemia, unspecified; E07.9 Disorder of thyroid, unspecified; H40.9 Unspecified glaucoma; Z79.899 Other long term (current) drug therapy

== ENCOUNTER → 2017-09-12 | Outpatient (CLI) | payer BC ==
[~2017-09-12] MED LIST changes: +OMEP20CA9 PO; -ULT50 PO; -VERA180T10 PO; +VRPSR180 PO; +ZLF50 PO
--- NOTE | 2017-09-14 08:01 | MAMMOGRAPHY REPORT ---
BILATERAL DIGITAL SCREENING MAMMOGRAM TOMOSYNTHESIS WITH CAD: 09/12/2017 CLINICAL HISTORY: Routine screening. Patient has no complaints. TECHNIQUE: Breast tomosynthesis in addition to standard 2D mammography was performed. Current study was also evaluated with a Computer Aided Detection (CAD) system. COMPARISON: Comparison is made to exams dated: 09/05/2016 mammogram, 09/03/2015 mammogram, 09/01/2014 m ammogram, 08/26/2013 mammogram, 08/20/2012 mammogram, and 08/16/2011 mammogram - [facility] nter. BREAST COMPOSITION: There are scattered areas of fibroglandular density in both breasts. FINDINGS: There is stable asymmetry in the lateral right breast. No suspicious mass, architectural d istortion or cluster of microcalcifications is seen. IMPRESSION: ACR BI-RADS CATEGORY 1: NEGATIVE There is no mammographic evidence of malignancy. A 1 year screening mammogram is recommended. The pa tient will receive written notification of the results. Approximately 10% of breast cancers are not detected with mammography. A negative mammographic report should not delay biopsy if a clinically suggestive mass is present. Silvia Carlisle M.D. ay/:09/12/2017 16:20:13 Manager Performance: Rosa M MA(Vinh)(Anika), [facility] letter sent: Normal 1/2 BI-RADS Code: ACR BI-RADS Category 1: Negative
== END | disposition home or self-care (01) ==
LOC: C.MAMM 10:09
PROVIDERS: ATTEND Nurse Practitioner Family
DX: Z12.31 Encounter for screening mammogram for malignant neoplasm of breast (principal)

== ENCOUNTER 2022-09-21 19:29 | Inpatient (IN) ==
[2022-09-21] MEDS ORDERED: LORazepam 2 MG/1 ML VIAL IV STA (19:52)
[2022-09-21] MEDS ORDERED: SODIUM CHLORIDE 0.9% 1000ML 1,000 ML IV ONE (19:52)
[2022-09-21] MEDS ORDERED: ONDANSETRON INJ 2 MG/ML 2 ML VIAL IV STA (19:52)
--- NOTE | 2022-09-21 19:58 | Emergency Department Note ---
Impression & Plan Chest pain, Vertigo ED Provider Note NAME: JUANY JOAQUIN AGE: 61 SEX: F : 1960 ARRIVES VIA: Ambulance INFORMANT: Patient ED PROVIDER(S): Rodrigo Crawford DO CHIEF COMPLAINT: Dizzy and headache HPI: Patient is a 61-year-old female with a past medical history of hyperte nsion, hyperlipidemia who presents to the ER for vertigo. Her dizziness started about 2 hours ago. She notes she feels like the whole room is spinning. When she moves her head it is much worse. She does have a history of dizziness and notes that this has been getting worse recently. She denies any headache or change in vision. She does have some mild right-sided neck pain which has been present for months and is not new. She denies any belly pain but does admit to nausea and vomiting. She notes that over the past couple days she has also had some intermittent chest pain coming going. She just describes as a pressure in the middle of her chest. No other exacerbating or remitting factors that she can think of at this time although she is vomiting intermittently. PAST MEDICAL HISTORY:See Below PAST SURGICAL HISTORY:See Below FAMILY HISTORY:See Below SOCIAL HISTORY:See Below HOME MEDICATIONS:See Below ALLERGIES:See Below VITALS:See Below PHYSICAL EXAMINATION: GENERAL: Sitting up in bed, alert, well appearing, well nourished, no distress, non-toxic EYE EXAM: normal conjunctiva. PERRL and EOM's intact. OROPHARYNX: no exudate, no erythema, lips, buccal mucosa, and tongue normal and mucous membranes are moist NECK: supple, no nuchal rigidity, no adenopathy, non-tender LUNGS: Clear to auscultation. Normal chest wall mechanics HEART: no murmurs, S1 normal and S2 normal ABDOMEN: abdomen soft, non-tender, normo-active bowel sounds, no masses, no rebound or guarding. UPPER EXTREMITIES: upper extremities are grossly normal. LOWER EXTREMITIES: No pitting edema. NEURO EXAM: Normal sensorium, cranial nerves II-XII intact, normal speech, no weakness of arms, no weakness of legs. No drift. Finger to nose intact. Gross sensation intact. MEDICAL DECISION MAKING: Patient is a 61-year-old female who presents the ER for dizziness and chest pain. She notes that she has been having chest pain off and on for the past 2 days. Today she started with dizziness about 2 hours prior to arrival. Aspirin not given initially as patient was vomiting. External records were reviewed. IV was established blood work was obtained. Labs show no significant leukocytosis or anemia. BMP with hypokalemia 2.9. This repleted IV x2. Glucose slightly elevated at 251. LFTs bilirubin and lipase was unremarkable. Troponin was negative. COVID was unremarkable. EKG appeared to be slightly worse than previous consequently did discuss with the hospitalist for further evaluation. She was given IV fluids Zofran and Ativan to help with the vertiginous symptoms and it did improve. CT head was negative. Triage Nursing notes reviewed. Limited review of prior medical records performed Vital Signs: reviewed and remarkable for no significant abnormalities Differential diagnosis: Differential diagnosis includes etiologies such as benign positional vertigo, dehydration, hypovolemia, anemia, tumor, infection, hypoglycemia, electrolyte abnormalities, cardiac sources, intracerebral event, toxicologic, neurological, as well as others were entertained. ER treatment provided: See below Diagnostics interpreted by me include EKG and cardiac monitoring as listed below: -Cardiac Monitoring: An order was placed for continuous cardiac monitoring. The monitor shows a rate of 80 with sinus rhythm. -ECG: Sinus rhythm rate of 77 Normal axis T wave inversion in the septal and anterior leads with ST depressions in V4 and V5 Slightly progressed from previous -Laboratory studies:Interpreted by me as stated above in MDM and shown below. Imaging studies: Xrays: As interpreted by me: Portable AP upright 1 view of the chest was unremarkable CTs show: CT head was negative Consultation(s): Discussed with hospitalist for further evaluation management Procedures:none Critical Care: None Past Med/Surg History Medical History Arthritis History of depression History of high cholesterol HTN (hypertension) Osteopenia Postmenopausal Sleep apnea SNHL (sensorineural hearing loss) Surgical History H/O hand surgery H/O tubal ligation History of colonoscopy History of trigger finger S/P lumbar laminectomy Family History Sister Cervical cancer Sister Thyroid cancer Other Cancer Heart disease Hypertension No family history of adverse response to anesthesia No family history of bleeding disorder Prostate cancer Denies family history of Ovarian cancer Breast cancer Social History Smoking Status: Never smoker Second Hand Exposure: No; Hx Alcohol Use: No Hx Substance Use: No Preferred Language: Cantonese Welsh Communication Ability: Effective Plate Colorer Required: No Beliefs That Will Affect Care: None marital status: Current Living Situation: Family Current Living Situation Comment: home with family current occupational 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 Other Information That Helps Us Care for You: No Feels Safe at Home: Yes Safety Concerns: Feels Safe At This Time Assistive Devices: None and CPAP Allergies Allergies Allergy/AdvReac Type Severity Reaction Status Date / Time adhesive Allergy Mild REDNESS, Verified 09/21/22 21:19 ITCHY desloratadine Allergy Unknown RASH Verified 09/21/22 21:19 loratadine Allergy Unknown rash Verified 09/21/22 21:21 shellfish derived Allergy Unknown RASH Verified 09/21/22 21:19 shrimp Allergy Unknown RASH Verified 09/21/22 21:21 phenylephrine Allergy Unknown Unverified 09/21/22 21:22 amlodipine AdvReac Unknown SWELLING Verified 09/21/22 21:20 IN FEET lisinopril AdvReac Unknown SWELLING Verified 09/21/22 21:22 IN FEET Home Meds Home Medications Medication Instructions Recorded Confirmed amlodipine 5 mg tablet 5 mg PO QAM 09/22/18 09/21/22 fluticasone propionate 50 1 spray intranasal QAM 09/22/18 09/21/22 mcg/actuation nasal spray,suspension (Flonase Allergy Relief) meclizine 12.5 mg tablet 12.5 mg PO UD PRN Dizziness 09/22/18 09/21/22 azelastine 137 mcg (0.1 %) nasal 1 spray intranasal QPM 04/29/20 09/21/22 spray aerosol rosuvastatin 5 mg tablet 2.5 mg PO QPM 02/22/22 09/21/22 amitriptyline 10 mg tablet 10 mg PO HS 09/01/22 09/21/22 triamcinolone acetonide 0.1 % 1 applic topical BID PRN Itching 09/21/22 09/21/22 topical cream Results & Data (ED) Vital Signs Vital Signs - 24 hr 09/21/22 19:35 09/21/22 19:44 09/21/22 19:53 Temperature 36.4 C L Temperature Source Oral Pulse Rate 76 73 78 Pulse Rate [Radial] Pulse Rhythm Regular Pulse Rhythm [Radial] Pulse Strength [Radial] Respiratory Rate 16 18 Respiratory Effort / Characteristics Non-Labored Respiratory Depth Normal Respiratory Pattern Regular Blood Pressure 133/77 Blood Pressure [Right Arm] Blood Pressure Mean 95 Blood Pressure Mean [Right Arm] Blood Pressure Position Lying Blood Pressure Position [Right Arm] Pulse Oximetry 100 100 Oxygen Delivery Method Room Air Nasal Cannula Oxygen Flow Rate 2 Sepsis Recent Fever Within 48 Hours No Sepsis New/Unexplained Change in Mental Status No Sepsis Action Taken by Nursing No Action Required 09/21/22 20:47 Temperature Temperature Source Pulse Rate Pulse Rate [Radial] 75 Pulse Rhythm Pulse Rhythm [Radial] Regular Pulse Strength [Radial] Normal Respiratory Rate 22 Respiratory Effort / Characteristics Non-Labored Spontaneous Respiratory Depth Normal Respiratory Pattern Regular Blood Pressure Blood Pressure [Right Arm] 128/74 Blood Pressure Mean Blood Pressure Mean [Right Arm] 92 Blood Pressure Position Blood Pressure Position [Right Arm] Lying Pulse Oximetry 100 Oxygen Delivery Method Nasal Cannula Oxygen Flow Rate 2 Sepsis Recent Fever Within 48 Hours Sepsis New/Unexplained Change in Mental Status Sepsis Action Taken by Nursing Laboratory Data 09/21/22 19:41 09/21/22 19:41 Lab Results 09/21/22 09/21/22 09/21/22 Range/Units 19:41 19:41 20:43 WBC 8.14 (4.8-10.8) K/ul RBC 5.10 (4.20-5.40) M/uL Hgb 14.6 (12.0-16.0) g/dl Hct 42.4 (37.0-47.0) % MCV 83.1 (80.0-100.0) fL MCH 28.6 (25.0-34.0) pg MCHC 34.4 (32.0-36.0) g/dL RDW Std Deviation 37.0 (36.4-46.3) fL RDW Coeff of Abdiel 12.2 (11.5-14.5) % Plt Count 267 (130-400) K/uL MPV 9.9 (9.4-12.4) fL Immature Gran % (Auto) 0.9 % Neut % (Auto) 63.9 % Lymph % (Auto) 29.7 % [place] % (Auto) 4.3 % Eos % (Auto) 0.5 % Baso % (Auto) 0.7 % Neut # (Auto) 5.20 (1.40-6.50) K/uL Lymph # (Auto) 2.42 (1.2-3.4) K/uL Searcy # (Auto) 0.35 (0.11-0.59) K/uL Eos # (Auto) 0.04 (0-0.50) K/uL Baso # (Auto) 0.06 (0-0.2) K/uL Immature Gran # (Auto) 0.07 (0.01-0.20) K/uL Sodium 138 (136-145) mmol/L Potassium 2.9 L (3.5-5.1) mmol/L Chloride 101 (98-107) mmol/L Carbon Dioxide 23 (21-32) mmol/L Anion Gap 14 H (3-11) BUN 16 (6-23) mg/dl Creatinine 0.61 (0.6-1.2) mg/dl Est Cr Clr Drug Dosing 76.6 ml/min Est GFR ( Amer) 113.4 ml/min Est GFR (Non-Af Amer) 97.8 ml/min BUN/Creatinine Ratio 26.2 H (10-20) Glucose 251 H (70-99(Fasting)) mg/dl Calcium 9.6 (8.5-10.1) mg/dl Total Bilirubin 0.8 (0.2-1.0) mg/dl AST 22 (13-39) U/L ALT 18 (7-52) U/L Alkaline Phosphatase 57 (34-104) U/L Troponin I High Sens 2.7 (0-14) pg/ml Total Protein 7.6 (6.0-8.3) gm/dl Albumin 4.6 (3.4-5.0) gm/dl Globulin 3.0 (2.5-4.0) gm/dl Albumin/Globulin Ratio 1.5 (0.9-2) Lipase 24 (11-82) U/L SARS-CoV-2, RNA, NAAT NEGATIVE (NEGATIVE) Administered Medications Enoxaparin Sodium (Enoxaparin Inj 40 Mg/0.4 Ml Syr) 40 mg SQ PM MAIA Stop: 10/21/22 22:40 Last Admin: 03/15/23 23:34 Dose: 40 mg Documented By: IFTIKHAR Meclizine HCl (Meclizine 12.5 Mg Tab) 12.5 mg PO DAILY PRN PRN Reason: Dizziness Stop: 10/21/22 22:40 Last Admin: 09/21/22 23:34 Dose: 12.5 mg Documented By: IFTIKHAR Ondansetron HCl (Ondansetron Inj 2 Mg/Ml 2 Ml Vial) 4 mg IV Q6H PRN PRN Reason: Nausea Stop: 10/21/22 22:40 Last Admin: 09/21/22 23:15 Dose: 4 mg Documented By: IFTIKHAR Discontinued Medications Sodium Chloride (Nss 1000ml) 1,000 mls @ 999 mls/hr IV .Q1H1M ONE Stop: 09/21/22 20:52 Last Infusion: 09/21/22 21:31 Dose: 0 mls/hr Documented By: Admin: 09/21/22 20:00 Dose: 999 mls/hr Documented By: KAMLESH Potassium Chloride (K Asif / Wtr) 10 meq in 100 mls @ 100 mls/hr IV Q1H MAIA; Protocol Stop: 09/21/22 22:44 Last Infusion: 09/21/22 22:51 Dose: 0 mls/hr Documented By: Admin: 09/21/22 21:51 Dose: 100 mls/hr Documented By: Infusion: 09/21/22 21:51 Dose: 0 mls/hr Documented By: Admin: 09/21/22 20:47 Dose: 100 mls/hr Documented By: KAMLESH Potassium Chloride (K Asif / Wtr) 10 meq in 100 mls @ 100 mls/hr IV Q1H MAIA Stop: 09/22/22 00:59 Last Admin: 09/22/22 00:35 Dose: 100 mls/hr Documented By: Infusion: 09/22/22 00:34 Dose: 0 mls/hr Documented By: Admin: 09/21/22 23:15 Dose: 100 mls/hr Documented By: IFTIKHAR Lorazepam (Lorazepam 2 Mg/1 Ml Vial) 0.25 mg IV NOW STA Stop: 09/21/22 19:53 Last Admin: 09/21/22 20:00 Dose: 0.25 mg Documented By: KAMLESH Ondansetron HCl (Ondansetron Inj 2 Mg/Ml 2 Ml Vial) 4 mg IV NOW STA Stop: 09/21/22 19:53 Last Admin: 09/21/22 20:00 Dose: 4 mg Documented By: [facility] Imaging Data Radiologist's Impression: Chest X-Ray 09/21/22 19:37 SINGLE VIEW CHEST CLINICAL HISTORY: Atypical chest pain. FINDINGS: An AP, portable, upright chest radiograph is compared to study dated 08/12/2021. The examination is degraded by portable technique and patient rotation. The cardiomediastinal silhouette is top normal for projection. Chronic interstitial thickening is similar to previous. The lungs and pleural spaces are clear. No pneumothorax is seen. The skeletal structures are osteopenic. The bony thorax is grossly intact. Arthritic change is seen in the shoulders. IMPRESSION: No acute cardiopulmonary abnormality. ACT 112: Negative or not required by law. Electronically signed by: Aubrey Iyer M.D. 09/21/2022 9:[address] 09/21/22 19:52 CT SCAN OF THE BRAIN WITHOUT IV CONTRAST CLINICAL HISTORY: Dizziness. COMPARISON STUDY: CT of the brain dated 05/03/2017. TECHNIQUE: Unenhanced axial CT scan of the brain is performed from the vertex to the skull base. A dose lowering technique was utilized adhering to the principles of ALARA. CT DOSE: 537.48 mGy.cm FINDINGS: Brain parenchyma: The brain parenchyma is normal in appearance. There is no hemo rrhage, mass effect, or evidence of acute territorial ischemia by CT criteria. Esteban-white matter differentiation is preserved. No extra-axial fluid collection is seen. Ventricles, sulci, cisterns: Normal in configuration. Intracranial vasculature: There is atherosclerotic calcification of the cavernous carotid arteries. Calvarium: Unremarkable. Sinuses and mastoids: The visualized paranasal sinuses are clear. The mastoid air cells are well pneumatized. Orbits: The bony orbits are grossly intact. IMPRESSION: There is no hemorrhage, mass effect, or evidence of acute territorial ischemia by CT criteria. ACT 112: Negative or not required by law. Electronically signed by: Aubrey Iyer M.D. 09/21/2022 8:34 PM Discharge Plan Visit Data Chief Complaint: Chest Pain ED Provider: Rodrigo Crawford Discharge Problem: Chest pain, Vertigo Patient Disposition: Admitted As Inpatient Discharge Instructions Interventions: ED Discharge Assessment Last Done: 09/21/22 22:20
[2022-09-21 20:04] LABS: Basophils # (auto) 0.06 K/uL (0-0.2); Basophils % (auto) 0.7 %; Eosinophils # (auto) 0.04 K/uL (0-0.50); Eosinophils % (auto) 0.5 %; Hematocrit (blood only) 42.4 % (37.0-47.0); Hemoglobin 14.6 g/dl (12.0-16.0); Immature Granulocytes # (auto) 0.07 K/uL (0.01-0.20); Immature Granulocytes % (auto) 0.9 %; Lymphocytes # (auto) 2.42 K/uL (1.2-3.4); Lymphocytes % (auto) 29.7 %; Mean Corpuscular Hemoglobin 28.6 pg (25.0-34.0); Mean Corpuscular Hgb Conc 34.4 g/dL (32.0-36.0); Mean Corpuscular Volume 83.1 fL (80.0-100.0); Mean Platelet Volume 9.9 fL (9.4-12.4); Monocytes # (auto) 0.35 K/uL (0.11-0.59); Monocytes % (auto) 4.3 %; Neutrophils % (auto) 63.9 %; Platelet Count 267 K/uL (130-400); RDW Coefficient of Variation 12.2 % (11.5-14.5); White Blood Count 8.14 K/ul (4.8-10.8)
[2022-09-21 20:15] LABS: Albumin Globulin Ratio 1.5 (0.9-2); Albumin Level 4.6 gm/dl (3.4-5.0); BUN Creatinine Ratio 26.2 (10-20); Bilirubin,Total 0.8 mg/dl (0.2-1.0); Calcium 9.6 mg/dl (8.5-10.1); Creatinine Clr Calc Pharmacy 76.6 ml/min; Est GFR (African American) 113.4 ml/min; Est GFR (Non-African American) 97.8 ml/min; Potassium 2.9 mmol/L (3.5-5.1); Total Protein 7.6 gm/dl (6.0-8.3)
[2022-09-21 20:22] LABS: Troponin I High Sensitivity 2.7 pg/ml (0-14)
--- NOTE | 2022-09-21 20:36 | CT Scan Report ---
CT SCAN OF THE BRAIN WITHOUT IV CONTRAST CLINICAL HISTORY: Dizziness. COMPARISON STUDY: CT of the brain dated 05/03/2017. TECHNIQUE: Unenhanced axial CT scan of the brain is performed from the vertex to the skull base. A d ose lowering technique was utilized adhering to the principles of ALARA. CT DOSE: 537.48 mGy.cm FINDINGS: Brain parenchyma: The brain parenchyma is normal in appearance. There is no hemorrhage, mass effect, or evidence of acute territorial ischemia by CT criteria. Esteban-white matter differentiation is preser akash. No extra-axial fluid collection is seen. Ventricles, sulci, cisterns: Normal in configuration. Intracranial vasculature: There is atherosclerotic calcification of the cavernous carotid arteries. Calvarium: Unremarkable. Sinuses and mastoids: The visualized paranasal sinuses are clear. The mastoid air cells are well pneu matized. Orbits: The bony orbits are grossly intact. IMPRESSION: There is no hemorrhage, mass effect, or evidence of acute territorial ischemia by CT ha mejía. ACT 112: Negative or not required by law. Electronically signed by: Aubrey Iyer M.D. 09/21/2022 8:34 PM
[2022-09-21] MEDS: POTASSIUM CHLORIDE / WTR 10 MEQ/100 ML PLCT IV SCH ×3 (20:47→23:15)
--- NOTE | 2022-09-21 21:03 | XRay Report ---
SINGLE VIEW CHEST CLINICAL HISTORY: Atypical chest pain. FINDINGS: An AP, portable, upright chest radiograph is compared to study dated 08/12/2021. The examinat ion is degraded by portable technique and patient rotation. The cardiomediastinal silhouette is top n ormal for projection. Chronic interstitial thickening is similar to previous. The lungs and pleural s paces are clear. No pneumothorax is seen. The skeletal structures are osteopenic. The bony thorax is grossly intact. Arthritic change is seen in the shoulders. IMPRESSION: No acute cardiopulmonary abnormality. ACT 112: Negative or not required by law. Electronically signed by: Aubrey Iyer M.D. 09/21/2022 9:01 PM
--- NOTE | 2022-09-21 21:53 | History & Physical Report ---
Date of Service September 21, 2022 Assessment & Plan (1) Dizziness: Plan: Patient is a 61-year-old female with past medical history of migraines, hyperlipidemia, moderate obstructive sleep apnea, hypertension, Graves' disease, and goiter who presents to the emergency department for evaluation regarding dizziness. Patient is currently hemodynamically stable and has received Ativan and is somewhat lethargic currently. -Admit to [facility] with telemetry due to dizziness with chest pain -Suspect based off of history that this is likely a component of BPPV, other differentials include gastroenteritis, dehydration -PT consulted to evaluate and treat for BPPV -Replete electrolytes, 2K riders have been given, will give an additional 40 mEq before morning -Morning CBC, BMP, magnesium -Maintenance IV fluid in the setting of nausea and vomiting -Zofran as needed -Continue home meclizine as needed for dizziness if that fails, consider additional dose of Ativan (2) Chest pain: Plan: -Suspect secondary to vomiting -Troponin negative thus far: Initial at 2.7, 2-hour repeat pending -We will hold off on echocardiogram at this time as she shows no signs of heart failure or risk factors for OH -Chest x-ray within normal limits (3) Hypercholesteremia: Plan: - Continue rosuvastatin (4) Moderate obstructive sleep apnea: Plan: -Unsure if patient is adherent on CPAP. Chart review shows on 09/01/2022 that she is to be on CPAP. -We will put CPAP order in per protocol (5) Hypertension: Plan: - Continue amlodipine Plan Disposition: [facility] with telemetry under observation Diet: Heart healthy DVT prophylaxis: Lovenox CODE STATUS: Full code History of Present Illness Chief Complaint: Dizziness Primary Care Provider: Eliud Santillan MD Patient is a 61-year-old female with past medical history of migraines, hyperlipidemia, moderate obstructive sleep apnea, hypertension, Graves' disease, and goiter who presents to the emergency department for evaluation regarding dizziness. By the time that I had made contact with her to evaluate her, she had been given Ativan and was asleep and difficult to arouse. Majority of history taken from ED provider and who is in the room at the time of my evaluation. reports that dizziness started earlier today approximately 5 to 6 hours ago. ED provider stated that the patient had noted that the whole room felt like it been spinning, however, the states that she was describing it as being on a rocking boat. She had become nauseous shortly after the symptoms had started and had vomited multiple times and since then has began experiencing chest pain. Per ED provider, it is stated that the chest pain is not new and has been present for the past few days and has been intermittent. reports that she has not been experiencing headache. ED course: Patient was brought back to room for evaluation: Lab work included CBC, CMP, troponin, and urinalysis. These were only positive for low potassium at 2.9 and an elevated glucose of 251. Urinalysis not obtained by the time of writing this note. EKG was performed which showed sinus rhythm at a rate of 77 bpm with normal axis. There was T wave inversion in the septal and anterior leads with ST depressions in V4 and V5 that seems slightly progressed from previous EKG. Imaging included head CT which was negative for hemorrhage, mass effect, or acute ischemia. Chest x-ray showed no acute cardiopulmonary abnormality. Patient was treated with Ativan for dizziness and was started on 2 K-riders for hypokalemia. Hospitalist team was then consulted for admission to the hospital. Allergies Allergy/AdvReac Type Severity Reaction Status Date / Time adhesive Allergy Mild REDNESS, Verified 09/21/22 21:19 ITCHY desloratadine Allergy Unknown RASH Verified 09/21/22 21:19 loratadine Allergy Unknown rash Verified 09/21/22 21:21 shellfish derived Allergy Unknown RASH Verified 09/21/22 21:19 shrimp Allergy Unknown RASH Verified 09/21/22 21:21 phenylephrine Allergy Unknown Unverified 09/21/22 21:22 amlodipine AdvReac Unknown SWELLING Verified 09/21/22 21:20 IN FEET lisinopril AdvReac Unknown SWELLING Verified 09/21/22 21:22 IN FEET Home Medications Medication Instructions Recorded Confirmed Type amlodipine 5 mg tablet 5 mg PO QAM 09/22/18 09/21/22 History fluticasone propionate 50 1 spray intranasal QAM 09/22/18 09/21/22 History mcg/actuation nasal spray,suspension (Flonase Allergy Relief) meclizine 12.5 mg tablet 12.5 mg PO UD PRN Dizziness 09/22/18 09/21/22 History azelastine 137 mcg (0.1 %) nasal 1 spray intranasal QPM 04/29/20 09/21/22 History spray aerosol rosuvastatin 5 mg tablet 2.5 mg PO QPM 02/22/22 09/21/22 History amitriptyline 10 mg tablet 10 mg PO HS 09/01/22 09/21/22 History triamcinolone acetonide 0.1 % 1 applic topical BID PRN Itching 09/21/22 09/21/22 History topical cream Past Med/Surg History Medical History Arthritis History of depression History of high cholesterol HTN (hypertension) Osteopenia Postmenopausal Sleep apnea SNHL (sensorineural hearing loss) Surgical History H/O hand surgery H/O tubal ligation History of colonoscopy History of trigger finger S/P lumbar laminectomy Family History Sister Cervical cancer Sister Thyroid cancer Other Cancer Heart disease Hypertension No family history of adverse response to anesthesia No family history of bleeding disorder Prostate cancer Denies family history of Ovarian cancer Breast cancer Social History Smoking Status: Never smoker Second Hand Exposure: No; Hx Alcohol Use: No Hx Substance Use: No Preferred Language: Cantonese Lao Communication Ability: Effective Cattle Sorter Required: No Beliefs That Will Affect Care: None marital status: Current Living Situation: Spouse and Family current occupational 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 Feels Safe at Home: Yes Assistive Devices: Glasses Review of Systems Review of Systems: Unobtainable due to cognitive status Physical Exam Constitutional: well developed, well nourished and + lethargic; no acute distress Neck: trachea midline, no thyromegaly Respiratory: normal respiratory effort, lungs clear to auscultation Cardiovascular: RRR, no murmur, no edema Gastrointestinal (Abdomen): Inspection/Auscultation: abdomen normal to inspection and normal bowel sounds; abdomen not distended Percussion/P alpation: abdomen soft Musculoskeletal: no cyanosis or clubbing, extremities motor strength 5/5 Skin: no rashes, warm and dry Neurologic: moves all extremities Lymphatic: no cervical or axillary lymphadenopathy Results & Data Results & Data Vital Signs (Past 12 Hours) Vital Signs Temp Pulse Pulse Resp BP BP Pulse Ox 09/21/22 20:47 75 22 128/74 100 09/21/22 19:53 78 09/21/22 19:44 73 18 100 09/21/22 19:35 36.4 C L 76 16 133/77 100 O2 Del Method O2 Flow Rate 09/21/22 20:47 Nasal Cannula 2 09/21/22 19:53 09/21/22 19:44 Nasal Cannula 2 09/21/22 19:35 Room Air Code Status & VTE Plan VTE Prophylaxis Plan VTE Prophylaxis will be ordered: Yes
[2022-09-21] MEDS ORDERED: ONDANSETRON INJ 2 MG/ML 2 ML VIAL IV PRN (22:41)
[2022-09-21] MEDS ORDERED: POLYETHYLENE (MIRALAX) 17 GM PACK PO PRN (22:41)
[2022-09-21] MEDS ORDERED: TRIAMCINOLONE ACET 0.1% CR 15 GM TUBE TOP PRN (22:41)
[2022-09-21] MEDS ORDERED: ACETAMINOPHEN 325 MG TAB PO PRN (22:41)
[2022-09-21] MEDS: MECLIZINE 12.5 MG TAB PO PRN (23:34)
[2022-09-21] MEDS: ENOXAPARIN INJ 40 MG/0.4 ML SYR SQ SCH (23:34)
[2022-09-22] MEDS: POTASSIUM CHLORIDE / WTR 10 MEQ/100 ML PLCT IV SCH (00:35)
[2022-09-22] MEDS: LACTATED RINGER'S 1,000 ML IV SCH ×2 (01:40→18:23)
[2022-09-22 01:57] LABS: Appearance Urine Clear (Clear); Bilirubin Urine Negative (Negative); Blood Urine Negative (Negative); Color Urine Yellow; Glucose Urine UA 1+ (Negative); Ketones Urine Trace (Negative); Leukocyte Esterase Urine Negative (Negative); Nitrite Urine Negative (Negative); Protein Urine Negative (Negative); Specific Gravity Urine 1.011 (1.000-1.030); Urobilinogen Urine Negative (Negative); pH Urine 7.5 (4.5-7.5)
[2022-09-22 08:10] LABS: Hematocrit (blood only) 39.4 % (37.0-47.0); Hemoglobin 13.5 g/dl (12.0-16.0); Mean Corpuscular Hemoglobin 28.6 pg (25.0-34.0); Mean Corpuscular Hgb Conc 34.3 g/dL (32.0-36.0); Mean Corpuscular Volume 83.5 fL (80.0-100.0); Mean Platelet Volume 9.6 fL (9.4-12.4); Platelet Count 224 K/uL (130-400); RDW Coefficient of Variation 12.2 % (11.5-14.5); RDW Standard Deviation 37.4 fL (36.4-46.3); Red Blood Count 4.72 M/uL (4.20-5.40); White Blood Count 8.95 K/ul (4.8-10.8)
[2022-09-22 08:24] LABS: Calcium 8.7 mg/dl (8.5-10.1); Creatinine Clr Calc Pharmacy 93.4 ml/min; Est GFR (African American) 121.1 ml/min; Est GFR (Non-African American) 104.5 ml/min; Potassium 3.4 mmol/L (3.5-5.1)
[2022-09-22 08:54] LABS: Estimated Average Glucose 131 mg/dl; Hemoglobin A1C 6.2 % (4.5-5.6)
[2022-09-22] MEDS ORDERED: POTASSIUM CHLORIDE CRTAB 20 MEQ TABCR PO STA (09:03)
[2022-09-22] MEDS: amLODIPine BESYLATE 5 MG TAB PO SCH (09:50)
[2022-09-22] MEDS: FLUTICASONE PROPIONATE NA SPR 16 GM BTL SCH (09:51)
[2022-09-22 10:29] LABS: Thyroid Stimulating Hormone 0.202 uIu/ml (0.300-4.500)
[2022-09-22] MEDS: MECLIZINE 12.5 MG TAB PO PRN (10:56)
[2022-09-22 11:07] LABS: T4 Free Thyroxine 0.97 ng/dl (0.61-1.60)
--- NOTE | 2022-09-22 14:06 | Magnetic Resonance Report ---
MR brain wo con HISTORY: 61 years-old Female acute vertigo; eval acute CVA acute vertigo with dizziness COMPARISON: Head CT of same day TECHNIQUE: Multiplanar multisequence MRI of the brain was obtained without the use of IV contrast FINDINGS: No pathologic blooming artifact on the gradient echo series. No restricted diffusion. Partially empty sella. No acute intracranial hemorrhage, midline shift, abnormal extra-axial collection, hydrocephal us or intracranial mass. There are a few scattered T2/FLAIR hyperintense foci noted throughout the wh ite matter. Cerebral venous sinuses and major arterial flow voids appear patent. The skull, orbits and soft tissu es are unremarkable. IMPRESSION: 1. No acute intracranial abnormality. No acute or subacute infarct. 2. Suggestion of mild chronic microvascular ischemic disease. ACT 112: Negative or not required by law. The above report was generated using voice recognition software. It may contain grammatical, syntax o r spelling errors. Electronically signed by: Ozzy Oliveros M.D. 09/22/2022 2:04 PM
[2022-09-22] MEDS: MECLIZINE 12.5 MG TAB PO SCH ×2 (14:40→20:05)
[2022-09-22] MEDS ORDERED: ASPIRIN 81 MG ECTAB PO STA (15:46)
--- NOTE | 2022-09-22 17:05 | Neurology Consultation ---
Date of Consultation September 22, 2022 Assessment & Plan (1) Vertigo: Plan NEUROLOGY CONSULTATION Assessment & Plan: Impression: pt with dizzy/vertigo symptoms that has been chronic and has been worked up in the past. reviewing her symptoms and chart, it is reasonable to consider ddx of Meniere's disease. She will benefit from ENT evaluation when discharged. As for her eye findings of rt eye pupil sparring rt Ophthalmoplegia with partial CN III and subtle rt CN palsy suggestive of possibly related to Graves' disease as pt has hx, e.g. Graves ophthalmopathy. Another possibility is diabetic neuropathy complication causing peripheral partial CN III palsy. pt had very high glucose level on admission. Recommendations: -get mri orbit with CYNDI -outpt ENT consult for meniere's disease work up. -check in detail for undiagnosed diabetes and check her graves' disease status. agree with vessel imaging. mri brain reviewed, i do not see any stroke or abnormal brainstem findings, her exam findings likely peripheral in nature and as above. Dr. Lion Godfrey MD [facility] Chief Complaint: dizzy History of Present Illness: pt with dizziness that is sometimes vertigo like symptoms and now feeling much better. pt still with vertical/skew diplopia with upgaze and rt abduction. mri brain negative. pt has been seen by neurology in the past for BPPV due to her long hx of chronic dizziness and vertigo symptoms. pt has been on verapamil and meclizine on/off for her symptoms. pt states she gets her dizzy spells frequently, sometimes 1-2x/week and can last all day. also with pound sound in her left ear and feeling full. no hearing loss per pt. chart reviewed. Admission/Initial HPI documentation: Patient is a 61-year-old female with past medical history of migraines, hyperlipidemia, moderate obstructive sleep apnea, hypertension, Graves' disease, and goiter who presents to the emergency department for evaluation regarding dizziness. By the time that I had made contact with her to evaluate her, she had been given Ativan and was asleep and difficult to arouse. Majority of history taken from ED provider and who is in the room at the time of my evaluation. reports that dizziness started earlier today approximately 5 to 6 hours ago. ED provider stated that the patient had noted that the whole room felt like it been spinning, however, the states that she was describing it as being on a rocking boat. She had become nauseous shortly after the symptoms had started and had vomited multiple times and since then has began experiencing chest pain. Per ED provider, it is stated that the chest pain is not new and has been present for the past few days and has been intermittent. reports that she has not been experiencing headache. ED course: Patient was brought back to room for evaluation: Lab work included CBC, CMP, troponin, and urinalysis. These were only positive for low potassium at 2.9 and an elevated glucose of 251. Urinalysis not obtained by the time of writing this note. EKG was performed which showed sinus rhythm at a rate of 77 bpm with normal axis. There was T wave inversion in the septal and anterior leads with ST depressions in V4 and V5 that seems slightly progressed from previous EKG. Imaging included head CT which was negative for hemorrhage, mass effect, or acute ischemia. Chest x-ray showed no acute cardiopulmonary abnormality. Patient was treated with Ativan for dizziness and was started on 2 K-riders for hypokalemia. Hospitalist team was then consulted for admission to the hospital. Past Medical History: See chart Meds: See chart I personally reviewed all of the medications Social & Family History: See chart Review of Systems: Per initial HPI on admission. Physical Exam: GEN: NAD HEENT: Normocephalic Neuro: Mental status:A & O x 3.No dysarthria or aphasia.No neglect. Fluent speech. No apraxia Cranial Nerves:II-XII intact except pt with rt eye abduction was slightly weak and caused horizontal diplopia and when upgaze, rt eye upward ophthalmoplegia noted with vertical dilopia. normal pupil responses. Motor:Normal bulk and tone,5/5 strength x 4 extremities Coordination:Intact FTN testing Reflexes: down going toes tereza Sensation: Intact x 4 extremities to touch Gait:intact Chart reviewed I have spent more than 50% educating patient about potential diagnosis and neurological evaluation and coordinating care with patient's treatment team. Total time spent (including chart review and coordination of care): 80 min (this includes chart review). History of Present Illness Attending Physician: Aleksandr Langston Allergies Allergy/AdvReac Type Severity Reaction Status Date / Time adhesive Allergy Mild REDNESS, Verified 09/21/22 21:19 ITCHY desloratadine Allergy Unknown RASH Verified 09/21/22 21:19 loratadine Allergy Unknown rash Verified 09/21/22 21:21 shellfish derived Allergy Unknown RASH Verified 09/21/22 21:19 shrimp Allergy Unknown RASH Verified 09/21/22 21:21 phenylephrine Allergy Unknown Unverified 09/21/22 21:22 amlodipine AdvReac Unknown SWELLING Verified 09/21/22 21:20 IN FEET lisinopril AdvReac Unknown SWELLING Verified 09/21/22 21:22 IN FEET Home Medications Medication Instructions Recorded Confirmed Type amlodipine 5 mg tablet 5 mg PO QAM 09/22/18 09/21/22 History fluticasone propionate 50 1 spray intranasal QAM 09/22/18 09/21/22 History mcg/actuation nasal spray,suspension (Flonase Allergy Relief) meclizine 12.5 mg tablet 12.5 mg PO UD PRN Dizziness 09/22/18 09/21/22 History azelastine 137 mcg (0.1 %) nasal 1 spray intranasal QPM 04/29/20 09/21/22 History spray aerosol rosuvastatin 5 mg tablet 2.5 mg PO QPM 02/22/22 09/21/22 History amitriptyline 10 mg tablet 10 mg PO HS 09/01/22 09/21/22 History triamcinolone acetonide 0.1 % 1 applic topical BID PRN Itching 09/21/22 09/21/22 History topical cream Patient History Medical History Arthritis History of depression History of high cholesterol HTN (hypertension) Osteopenia Postmenopausal Sleep apnea SNHL (sensorineural hearing loss) Surgical History H/O hand surgery H/O tubal ligation History of colonoscopy History of trigger finger S/P lumbar laminectomy Family History Sister Cervical cancer Sister Thyroid cancer Other Cancer Heart disease Hypertension No family history of adverse response to anesthesia No family history of bleeding disorder Prostate cancer Denies family history of Ovarian cancer Breast cancer Social History Smoking Status: Never smoker Second Hand Exposure: No; Hx Alcohol Use: No Hx Substance Use: No Preferred Language: Cantonese [place]ese Communication Ability: Effective Metal Finisher Required: No Beliefs That Will Affect Care: None marital status: Current Living Situation: Family Current Living Situation Comment: home with family 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
[2022-09-22] MEDS: ROSUVASTATIN CALCIUM 5 MG TAB PO SCH (20:02)
[2022-09-22] MEDS: ENOXAPARIN INJ 40 MG/0.4 ML SYR SQ SCH (20:05)
[2022-09-22] MEDS: AMITRIPTYLINE HCL 10 MG TAB PO SCH (20:05)
--- NOTE | 2022-09-22 20:51 | Hospitalist Progress Note ---
Date of Service September 22, 2022 Assessment & Plan (1) Vertigo: Plan: likely peripheral in origin. records reviewed - she has had multiple hospital admissions for acute vertigo, and dizziness/vertigo go back many years. has seen neurology in the past. 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 she has typically responded to meclizine in the past and has responded to such while here. I have adjusted the meclizine to 12.5mg TID scheduled. she has seen ENT. she has b/l high frequency hearing loss, mild-moderate degree, based on prior testing. no prior h/o Meniere's based on records, however. her MRI Brain is negative making REVERSE LOGISTICS ANALYST cause of vertigo unlikely. await PT eval for provocative maneuvers to help with diagnosis and/or treatment. appreciate neurology assistance. (2) Diplopia: Plan: patient has double vision with rightward gaze and appears to have extraocular muscle dysfunction of the right eye as detailed in my physical exam. neurology consult has been requested. etiology?? this issue should be separate from #1 above. inner ear issue should not cause diplopia of #3 below. await neurology consult & recs. will need ophthalmology eval abdullahi post-d/c. (3) Ophthalmoplegia of right eye: Plan: CN 3, and CN 6. leading to diplopia. neuro consult requested. etiology? brainstem CVA not seen on MRI brain?? (4) Tinnitus: Plan: left ear. pulsatile. now resolved. will need CTA head/neck; prior CTAs have been normal per past studies. with hearing loss/vertigo/tinnitus - attacks from Meniere's disease?? will need ENT evaluation post-d/c. (5) Chest pain: Plan: patient had continuous symptoms all day on Monday. despite such her troponins are completely normal. EKG is very abnormal with ST depressions throughout the anterior leads. echo completed; results pending. tele thus far normal. symptoms were pleuritic in nature - pulmonary based etiology? PE? await echo and go from there. (6) Migraine headache: Plan: mild headache over the last few days - suspect migraine. now improved. (7) Hypertension: Plan: BPs controlled on home amlodipine. (8) Graves disease: Plan: history of such, but not on therapy nor has she developed hypothyroidism post-Rx of Graves. TSH minimally depressed but FT4 wnl. (9) Paresthesias: Plan: b/l hands b/l feet check a b12 level in am (10) Prediabetes: Plan: a1c 6.2% presenting BSG was 251, now <100 this am with her h/o Graves I would be concerned she is developing autoimmune T1DM this will need close f/u and monitoring (11) Hypokalemia: Plan: has had low values over the years presented with level of 2.9; now 3.4 today 2nd to Graves disease? did not have classic symptoms of Graves associated Periodic hypokalemic paralysis but can't rule it out cont replacement repeat K level AM mag level noted to be normal Plan updated at bedside change observation status to full admission status Admission and Anticipated Discharge Date Admission Date: September 22, 2022 Subjective patient sitting at side of bed comfortably during the visit at bedside she reports multiple complaints 1. several days ago had pulsatile tinnitus from the left ear. Very bothersome to her; ultimately resolved. No tinnitus right ear. ?hearing loss from the left ear. Vertigo/dizziness started several days later - did not have the vertigo at the same time as the tinnitus. 2. vertigo/dizziness - described as if "she is on a rocking boat." No lightheadedness or near-syncope. 3. chest pain - had such all day Monday into Monday morning; now resolved. Was central in location, pleuritic. Did not radiate. Father had heart disease. 4. b/l hand and b/l foot numbness - started when the vertigo began. Is improved today. Has never had these symptoms before. 5. headaches - has known h/o migraines. She isn't sure if she has ever had atypical migraines causing significant neurological symptoms. Did have mild headache on left side of head (parietal-temporal area) earlier in the week. Review of Systems Review of Systems: gen - no fevers cv - chest pain has improved pulm - no dyspnea GI - nausea when she moves too quickly or when she gets dizzy neuro - no focal motor weakness; having diplopia when looking to the right Physical Exam Physical Exam: gen - NAD, pleasant eyes - PERRL; on extraocular testing she appears to have mild difficulty with full lateral gaze with right eye; there may be a lateral abducens palsy (CN 6) and a CN 3 palsy with difficulty elevated the right eye towards the upper outer quadrant of the eye; with rightward gaze she has double vision, and the diplopia extinguishes with covering the eye; no injection of the eye; no lid lag HENT - MMM; hearing intact b/l; CN 4,5,7,8,9,10,11,12 otherwise intact neck - no bruits heart - RRR, s1s2, no murmur chest - no reproducible chest wall pain to palpation lungs - CTA b/l abd - soft NT ND BS+ ext - no edema, pulses 2+ b/l neuro - strength 5/5 x 4 exts; CN findings as above Results & Data Results & Data Vital Signs (Past 12 Hours) Vital Signs Temp Pulse Resp BP Pulse Ox O2 Del Method O2 Flow Rate 09/22/22 20:01 Nasal Cannula 2 09/22/22 19:28 36.6 C 63 18 150/80 H 97 Room Air 09/22/22 15:53 36.7 C 69 16 126/79 96 Room Air 09/22/22 11:28 36.8 C 63 18 137/85 97 Room Air Laboratory Results Laboratory Results - last 24 hr 09/21/22 09/21/22 09/22/22 20:43 23:00 07:36 WBC 8.95 RBC 4.72 Hgb 13.5 Hct 39.4 MCV 83.5 MCH 28.6 MCHC 34.3 RDW Std Deviation 37.4 RDW Coeff of Abdiel 12.2 Plt Count 224 MPV 9.6 Sodium Potassium Chloride Carbon Dioxide Anion Gap BUN Creatinine Est Cr Clr Drug Dosing Est GFR ( Amer) Est GFR (Non-Af Amer) BUN/Creatinine Ratio Glucose Estimat Average Glucose Hemoglobin A1c Calcium Magnesium Troponin I High Sens < 2.3 TSH Free T4 Urine Color Urine Appearance Urine pH Ur Specific [place] Urine Protein Urine Glucose (UA) Urine Ketones Urine Blood Urine Nitrite Urine Bilirubin Urine Urobilinogen Ur Leukocyte Esterase SARS-CoV-2, RNA, NAAT NEGATIVE 09/22/22 09/22/22 09/22/22 07:36 07:36 09:35 WBC RBC Hgb Hct MCV MCH MCHC RDW Std Deviation RDW Coeff of Abdiel Plt Count MPV Sodium 140 Potassium 3.4 L Chloride 105 Carbon Dioxide 28 Anion Gap 7 BUN 9 Creatinine 0.50 L Est Cr Clr Drug Dosing 93.4 Est GFR ( Amer) 121.1 Est GFR (Non-Af Amer) 104.5 BUN/Creatinine Ratio 18.0 Glucose 88 Estimat Average Glucose 131 Hemoglobin A1c 6.2 H Calcium 8.7 Magnesium 2.0 Troponin I High Sens TSH 0.202 L Free T4 0.97 Urine Color Urine Appearance Urine pH Ur Specific [place] Urine Protein Urine Glucose (UA) Urine Ketones Urine Blood Urine Nitrite Urine Bilirubin Urine Urobilinogen Ur Leukocyte Esterase SARS-CoV-2, RNA, NAAT 09/22/22 Unknown WBC RBC Hgb Hct MCV MCH MCHC RDW Std Deviation RDW Coeff of Abdiel Plt Count MPV Sodium Potassium Chloride Carbon Dioxide Anion Gap BUN Creatinine Est Cr Clr Drug Dosing Est GFR ( Amer) Est GFR (Non-Af Amer) BUN/Creatinine Ratio Glucose Estimat Average Glucose Hemoglobin A1c Calcium Magnesium Troponin I High Sens TSH Free T4 Urine Color Yellow Urine Appearance Clear Urine pH 7.5 Ur Specific [place] 1.011 Urine Protein Negative Urine Glucose (UA) 1+ H Urine Ketones Trace H Urine Blood Negative Urine Nitrite Negative Urine Bilirubin Negative Urine Urobilinogen Negative Ur Leukocyte Esterase Negative SARS-CoV-2, RNA, NAAT PG Care Time/CCT Total # of Minutes Spent Total Time Spent with Patient: Total time spent is greater than 50% in coordination of care (as documented) at patient's floor/unit and/or counseling patient: Coding Level of Care Code 62949 SUB INP/OBS CARE 3/50MIN Diagnoses Vertigo R42 Diplopia H53.2 Ophthalmoplegia of right eye H49.9 Tinnitus H93.19 Chest pain R07.9 Migraine headache G43.909 Hypertension I10 Graves disease E05.00 Paresthesias R20.2 Prediabetes R73.03 Hypokalemia E87.6
--- NOTE | 2022-09-22 21:41 | XCELERA ---
[id number]
[2022-09-22] MEDS ORDERED: GADOBUTROL 7.5ML VIAL IV ONE (23:24)
--- NOTE | 2022-09-23 01:18 | Magnetic Resonance Report ---
Exam(s): MRI ORBITS IV Amt: 5cc gadavist EXAM: MR Orbits With Intravenous Contrast () CLINICAL HISTORY: Reason for exam: Right eye ophthalmoplegia (CN 3 6 involved). TECHNIQUE: Multiplanar magnetic resonance images of the orbits with intravenous contrast. Mild motion artifact. CONTRAST: Patient received 5cc Gadavist of IV contrast COMPARISON: No relevant prior studies available. FINDINGS: Orbits: Homogeneous enhancing mass surrounding the right optic nerve, measures 14 x 8 x 6 mm. The optic nerves courses along the inferior margin of the mass and shows grossly normal signal. Findings are nonspecific, probable meningioma, though other neoplasm including lymphoma/leukemia, metastasis or benign inflammatory abnormality such as sarcoid are not excluded. Minimal right proptosis. No other abnormal enhancement. Sinuses: Unremarkable. No air-fluid levels. Bones/joints: Unremarkable. Soft tissues: Predominantly empty sella. IMPRESSION: 1. Homogeneous enhancing mass surrounding the right optic nerve is nonspecific, suspect meningioma, though other neoplasm or inflammatory/infectious etiologies are not excluded. 2. Minimal right proptosis. 3. No other abnormal enhancement or acute finding. Electronically signed by: Sintia Walter M.D. 09/23/22 01:17 AM
[2022-09-23] MEDS: ASPIRIN 81 MG ECTAB PO SCH (08:10)
[2022-09-23] MEDS: amLODIPine BESYLATE 5 MG TAB PO SCH (08:11)
[2022-09-23] MEDS: FLUTICASONE PROPIONATE NA SPR 16 GM BTL SCH (08:12)
[2022-09-23 08:59] LABS: Calcium 9.1 mg/dl (8.5-10.1); Creatinine Clr Calc Pharmacy 71.9 ml/min; Est GFR (African American) 111.1 ml/min; Est GFR (Non-African American) 95.8 ml/min; Potassium 4.1 mmol/L (3.5-5.1)
[2022-09-23] MEDS: MECLIZINE 12.5 MG TAB PO SCH ×3 (09:01→20:18)
[2022-09-23] MEDS ORDERED: OPTIRAY 320 500ml IV ONE (10:40)
--- NOTE | 2022-09-23 11:35 | CT Scan Report ---
CT angio head w con CLINICAL HISTORY: 61 years-old Female with double vision, tinnitus. Acute double vision COMPARISON STUDY: CTA neck of same day, brain MRI 09/22/2022 TECHNIQUE: Following the IV administration of 115 cc of Optiray, CT angiogram of the brain was perfor med from the skull base to the vertex. Images are reviewed in the axial, sagittal, and coronal planes . 3-D MIPS images are created and assessed. IV contrast was administered without complication. All me asurements were obtained according to NASCET criteria. A dose lowering technique was utilized adherin g to the principles of ALARA. FINDINGS: CT ANGIOGRAM OF THE BRAIN: The imaged bilateral internal carotid arteries are patent. The bilateral anterior and middle cerebral arteries are also patent. The vertebrobasilar system and posterior cerebral arteries are widely barnes nt. There is no aneurysm, high-grade stenosis, or proximal branch occlusion identified. Dural sinuses appear patent. IMPRESSION: Unremarkable CTA of the head. ACT 112: Negative or not required by law. The above report was generated using voice recognition software. It may contain grammatical, syntax o r spelling errors. Electronically signed by: Ozzy Oliveros M.D. 09/23/2022 11:34 AM
--- NOTE | 2022-09-23 11:50 | Neurology Progress Note ---
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 Patient does have some reduced visual acuity for the right eye and also experiences mild diplopia with rightward gaze. She does not have an afferent pupillary defect on examination at this time. She does have mild proptosis for the right eye. Patient probably has 6th and 3rd cranial nerve involvement. She will need additional outpatient follow-up with ophthalmology. Patient also appears to have a peripheral neuropathy based on symptoms of widespread paresthesias, and relatively reduced deep tendon reflexes for the lower limbs on examination. Her neuropathy is probably related to prediabetic condition as her hemoglobin A1c has been elevated. Additional outpatient evaluation including EMG of the lower limbs would not be unreasonable. She has a normal vitamin B12 level. Further lab evaluation for neuropathy could be completed after completion of EMG. Patient also has episodic vertigo, does not seem to be symptomatic this morning. Could continue to utilize meclizine on an as-needed basis or refer patient to physical therapy if necessary, depending on her status going forward. Follow-up with results of CT angiogram of the head and neck completed earlier today. Admission and Anticipated Discharge Date Admission Date: September 22, 2022 Subjective Follow-up regarding MRI results MRI of the orbits obtained overnight revealed enhancing mass surrounding the right optic nerve, probably meningioma although other etiology not completely excluded. There is an element of mild proptosis for the right eye as well. Patient does report some loss of visual acuity for the right eye, no associated pain, also has been complaining of some mild diplopia when looking to her right. Dr. Langston aware of this finding. He informed that he had discussed the right orbital tumor with Dr. Francis, ophthalmology, as well, who has recommended outpatient follow-up with another subspecialist. I did review the above findings directly with the patient and her spouse who was present at bedside this morning. In addition to the above vision complaint, patient also has been experiencing episodic vertigo, and generalized paresthesias. Her vertigo was not problematic currently, however. Her paresthesias seem minimal and are not very bothersome currently either. She did inquire as to whether or not the right orbital tumor could be contributing to her vertigo. I indicated that there could be some connection here, especially as she experiences diplopia with rightward gaze which could be affecting her sense of balance. I also see that her hemoglobin A1c is 6.2, modest elevation, but potentially responsible for a mild peripheral neuropathy. Review of Systems Eyes: as per Subjective / HPI Neurologic: as per Subjective / HPI and + paresthesia; no gait abnormality Results & Data Vital Signs (Past 12 Hours) Vital Signs Temp Pulse Resp BP BP Pulse Ox O2 Del Method 09/23/22 11:12 36.5 C 63 18 133/78 95 Room Air 09/23/22 07:58 36.9 C 56 L 16 112/71 96 Room Air 09/23/22 03:40 36.6 C 57 L 16 114/70 99 Nasal Cannula O2 Flow Rate 09/23/22 11:12 09/23/22 07:58 09/23/22 03:40 2 Exam (Neuro) Neurologic: Oriented to:: Person, Place and Time Memory: Short Term Intact and Remote Intact Attention: Span Intact and Concentration Intact Speech Fluency: negative Dysarthria or Dysfluency Fund of Knowledge: Current Events, Past History and Vocabulary Cranial Nerves: Normal II, V, VII, VIII, IX, X, XI and XII; Abnorm III, IV, Motor Strength: Normal Lower Extremities and Normal Upper Extremities Sensation: Light Touch Intact Coordination: Normal; negative Limited Balance or Finger-Nose Abnormal Deep Tendon Reflexes: Rt Biceps: 1+, Lt Biceps: 1+, Rt Patellar: 1+ and Lt Patellar: 1+ Gait: Normal Station and Gait PG Care Time/CCT Total # of Minutes Spent Total Time Spent with Patient: Total time spent is greater than 50% in coordination of care (as documented) at patient's floor/unit and/or counseling patient: Coding Level of Care Code 79325 SUB INP/OBS CARE 235MIN Diagnoses Ophthalmoplegia of right eye H49.9 Benign neoplasm of right orbit D31.61 Peripheral neuropathy G62.9 Vertigo R42
--- NOTE | 2022-09-23 14:35 | CT Scan Report ---
NECK CTA HISTORY: diplopia, headache, tinnitus TECHNIQUE: Multiaxial CT images of the neck were performed following the intravenous administration o f contrast to evaluate the major cervical vessels. Maximum intensity projection images were also obta ined. All measurements were calculated based on NASCET criteria. A dose lowering technique was utili zed adhering to the principles of ALARA. COMPARISON STUDY: Neck CTA 01/29/2017. FINDINGS: The aortic arch and proximal great vessels are widely patent. There is no significant sten osis, occlusion, or dissection identified within the bilateral common carotid, internal carotid, or r ight vertebral artery. Mild focal narrowing at the takeoff of the left vertebral artery due to the at herosclerotic plaque. IMPRESSION: 1. No significant stenosis, occlusion, or dissection identified within the carotid arteries. 2. Mild focal narrowing at the takeoff of the left vertebral artery due to the atherosclerotic plaque . ACT 112: Negative or not required by law. Electronically signed by: Adrian Macias M.D. 09/23/2022 2:33 PM
--- NOTE | 2022-09-23 20:02 | Hospitalist Progress Note ---
Date of Service September 23, 2022 Assessment & Plan (1) Vertigo: Plan: IMPROVED. records reviewed - she has had multiple hospital admissions for acute vertigo, and dizziness/vertigo go back many years. has seen neurology in the past. 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 However, during PT vestibular eval today, amberly- hallpike maneuver was negative. PT comments that there could be a cervicogenic component to her vertigo. she DOES get "dizzy" when she develops her diplopia with right lateral gaze. she has typically responded to meclizine in the past and has responded to such while here. Will continue scheduled meclizine to 12.5mg TID. she has seen ENT. she has b/l high frequency hearing loss, mild-moderate degree, based on prior testing. no prior h/o Meniere's based on records, however. she did have severe tinnitus of the left ear last week lasting a full 24 hours. thus, cannot rule out Meniere's disease and neurology did suggest ENT eval post- d/c. thus, all in all, multiple issues could be at play causing the vertigo. fortunately we did rule out CVA as the primary cause of vertigo given her negative MRI brain. (2) Diplopia: Plan: patient has double vision with rightward gaze and appears to have extraocular muscle dysfunction of the right eye as described. 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 presumably the tumor may be compromising CN 3/6 leading to her extraocular muscle dysfunction and diplopia. she has seen Dr Francis from [facility] in the past. I spoke with him by phone, and he suggested f/u with Dr Eb Villatoro, neuro-ophthalmology, who is with the [facility] system and comes to [facility] locally. will have our nurse navigator set her up with him. will have radiology push her MRIs to the [facility] system via PACS. will speak with neurology to see if she should stop driving until this problem is addressed, or do we simply patch the eye to allow driving? (3) Ophthalmoplegia of right eye: Plan: CN 3, and CN 6. leading to diplopia. see #2 above. (4) Tinnitus: Plan: left ear. pulsatile. now resolved. CTA head/neck negative for aneurysm, AVM, stenosis, etc. with hearing loss/vertigo/tinnitus - attacks from Meniere's disease?? will need ENT evaluation post-d/c. no tinnitus during the stay. (5) Chest pain: Plan: patient had continuous symptoms all day on Monday, 09/19. despite such her troponins were completely normal at time of admission on 09/21. EKG is very abnormal with ST depressions throughout the anterior leads. Previous EKGs in the past were also abnormal but the ST depressions are more prominent throughout all of the anterior leads V1-V6. echo completed with preserved EF and normal LV wall motion. tele thus far normal. symptoms were pleuritic in nature - but O2 sats have been wnl and the pleuritic pain is now resolved. no evidence of pericarditis. she has multiple CAD risk factors, and her father had some form of heart disease - possibly CAD (he from heart disease per her recollection). in light of symptoms, abnl EKG, etc - will ask [facility] Cardiology to formally see in consult. stress test here? stress test as outpatient? cont aspirin, statin. check lipids am. (6) Migraine headache: Plan: mild headache over the last few days - suspect migraine. now improved/resolved. I don't think any of her presentation was a "basilar migraine" or atypical migraine. (7) Hypertension: Plan: BPs controlled on home amlodipine. (8) Graves disease: Plan: history of such early . needed treatment for <1 year?? was followed by endocrinology in [place] and then she was told she didn't need further f/u. no h/o radioactive iodine treatment or thyroid surgery. at some point was referred to Dr Valadez from endocrinology - 05/2015 had thyroid uptake scan with the following results --- FINDINGS: On the thyroid scan images the thyroid gland appears enlarged. There is homogeneous distribution of tracer throughout the thyroid gland. No hot or cold nodules are identified. 24 hour thyroid uptake is calculated at 28.9% IMPRESSION: 1. The nuclear thyroid scan shows an enlarged gland with homogeneous tracer distribution. No discrete nodules are suspected. 2. The 24-hour thyroid uptake values calculated at 28.9%. This is within the upper range of normal. While here her TSH is minimally depressed but FT4 wnl. I do not believe her right eye findings are from Graves Ophthalmoplegia. With that said will advise she f/u with Dr Valadez post-d/c for a check-in visit to monitor her thyroid and her pre-DM. (9) Paresthesias: Plan: b/l hands b/l feet B12 level wnl TSH relatively normal peripheral neuropathy suspected Dr Fritz advising outpatient EMG, etc (10) Prediabetes: Plan: a1c 6.2% presenting BSG was 251, now <100 with her h/o Graves I would be concerned she is developing autoimmune T1DM this will need close f/u and monitoring (11) Hypokalemia: Plan: has had low values over the years presented with level of 2.9; now 4.1 today 2nd to Graves disease? did not have classic symptoms of Graves associated Periodic hypokalemic paralysis however Plan updated by phone today await cardiology consult in am appreciate neurology assistance Admission and Anticipated Discharge Date Admission Date: September 22, 2022 Subjective patient overall good day diplopia remains but only present with right lateral gaze she specifically tries to avoid looking in that direction to avoid the double vision she is uncertain when the double vision started, but perhaps a few months ago?? her dizziness/vertigo is better today. minimal symptoms on scheduled meclizine. we had a lengthy discussion about the right eye orbital tumor. I showed her the MRI scans and the tumor itself. discussed that she will need f/u with neuro-social human services assistants for this. discussed that we are concerned the tumor is causing the diplopia. with respect to the chest pain she had earlier in the week she denies having such while here. tele overnight - NSR. Review of Systems Review of Systems: gen - eating well cv - no cp, no orthopnea pulm - dyspnea with heavy exertion at home; no dyspnea here GI - no abd pain, nausea or emesis neuro - no new neurological symptoms Physical Exam Physical Exam: gen - NAD, pleasant eyes - continues with what appears to be CN 6 deficit on right as well as CN 3 deficit with inability to move the eyeball to the upper outer region of the o rbit; diplopia is reproduced by right lateral gaze; no nystagmus noted HENT - MMM neck - no JVD heart - RRR, s1s2, no murmur lungs - CTA b/l abd - soft NT ND BS+ ext - no edema, pulses 2+ b/l neuro - strength 5/5 x 4 exts; speech fluent/clear Results & Data Results & Data Vital Signs (Past 12 Hours) Vital Signs Temp Pulse Pulse Resp BP BP Pulse Ox 09/23/22 14:18 84 09/23/22 15:43 36.8 C 78 18 116/78 98 09/23/22 11:12 36.5 C 63 18 133/78 95 O2 Del Method 09/23/22 14:18 09/23/22 15:43 Room Air 09/23/22 11:12 Room Air Laboratory Results Laboratory Results - last 24 hr 09/23/22 09/23/22 07:36 07:36 Sodium 141 Potassium 4.1 D Chloride 104 Carbon Dioxide 33 H Anion Gap 4 BUN 13 Creatinine 0.65 Est Cr Clr Drug Dosing 71.9 Est GFR ( Amer) 111.1 Est GFR (Non-Af Amer) 95.8 BUN/Creatinine Ratio 20.0 Glucose 92 Calcium 9.1 Vitamin B12 > 1500 H Diagnostic Findings Head CTA 09/23/22 08:53 CT angio head w con CLINICAL HISTORY: 61 years-old Female with double vision, tinnitus. Acute double vision COMPARISON STUDY: CTA neck of same day, brain MRI 09/22/2022 TECHNIQUE: Following the IV administration of 115 cc of Optiray, CT angiogram of the brain was performed from the skull base to the vertex. Images are reviewed in the axial, sagittal, and coronal planes. 3-D MIPS images are created and assessed. IV contrast was administered without complication. All measurements were obtained according to NASCET criteria. A dose lowering technique was utilized adhering to the principles of ALARA. FINDINGS: CT ANGIOGRAM OF THE BRAIN: The imaged bilateral internal carotid arteries are patent. The bilateral anterior and middle cerebral arteries are also patent. The vertebrobasilar system and posterior cerebral arteries are widely patent. There is no aneurysm, high-grade stenosis, or proximal branch occlusion identified. Dural sinuses appear patent. IMPRESSION: Unremarkable CTA of the head. ACT 112: Negative or not required by law. The above report was generated using voice recognition software. It may contain grammatical, syntax or spelling errors. Electronically signed by: Ozzy Oliveros M.D. 09/23/2022 11:34 AM Neck CTA 09/23/22 08:53 NECK CTA HISTORY: diplopia, headache, tinnitus TECHNIQUE: Multiaxial CT images of the neck were performed following the intravenous administration of contrast to evaluate the major cervical vessels. Maximum intensity projection images were also obtained. All measurements were calculated based on NASCET criteria. A dose lowering technique was utilized adhering to the principles of ALARA. COMPARISON STUDY: Neck CTA 01/29/2017. FINDINGS: The aortic arch and proximal great vessels are widely patent. There is no significant stenosis, occlusion, or dissection identified within the bilateral common carotid, internal carotid, or right vertebral artery. Mild focal narrowing at the takeoff of the left vertebral artery due to the atherosclerotic plaque. IMPRESSION: 1. No significant stenosis, occlusion, or dissection identified within the carotid arteries. 2. Mild focal narrowing at the takeoff of the left vertebral artery due to the atherosclerotic plaque. ACT 112: Negative or not required by law. Electronically signed by: Adrian Macias M.D. 09/23/2022 2:33 PM echo - PG Care Time/CCT Total # of Minutes Spent Total Time Spent with Patient: Total time spent is greater than 50% in coordination of care (as documented) at patient's floor/unit and/or counseling patient: Coding Level of Care Code 99889 SUB INP/OBS CARE 3/50MIN Diagnoses Vertigo R42 Diplopia H53.2 Ophthalmoplegia of right eye H49.9 Tinnitus H93.19 Chest pain R07.9 Migraine headache G43.909 Hypertension I10 Graves disease E05.00 Paresthesias R20.2 Prediabetes R73.03 Hypokalemia E87.6
[2022-09-23] MEDS: ROSUVASTATIN CALCIUM 5 MG TAB PO SCH (20:16)
[2022-09-23] MEDS: ENOXAPARIN INJ 40 MG/0.4 ML SYR SQ SCH (20:18)
[2022-09-23] MEDS: AMITRIPTYLINE HCL 10 MG TAB PO SCH (20:19)
--- NOTE | 2022-09-24 00:08 | Electrocardiogram Report ---
Test Reason : Blood Pressure : / mmHG Vent. Rate : 077 BPM Atrial Rate : 077 BPM P-R Int : 166 ms QRS Dur : 100 ms QT Int : 434 ms P-R-T Axes : 048 010 024 degrees QTc Int : 491 ms Poor data quality, interpretation may be adversely affected Normal sinus rhythm Prolonged QT Abnormal ECG When compared with ECG of 22-SEP-2018 22:22, ST now depressed in Lateral leads T wave inversion now evident in Lateral leads QT has lengthened Confirmed by Vincent Padilla ([id number]) on 09/24/2022 12:07:58 AM Referred By: REFERRED SELF Confirmed By:Vincent Padilla
--- NOTE | 2022-09-24 00:26 | Electrocardiogram Report ---
Test Reason : Blood Pressure : / mmHG Vent. Rate : 065 BPM Atrial Rate : 065 BPM P-R Int : 178 ms QRS Dur : 096 ms QT Int : 418 ms P-R-T Axes : 052 011 032 degrees QTc Int : 434 ms Normal sinus rhythm Abnormal ECG When compared with ECG of 21-SEP-2022 19:35, QT has shortened Confirmed by Vincent Padilla ([id number]) on 09/24/2022 12:25:37 AM Referred By: REFERRED SELF Confirmed By:Vincent Padilla
--- NOTE | 2022-09-24 06:26 | Billing Data ---
Date of Service September 24, 2022 Attending addendum: I have physically seen this patient, have supervised the medical residents activities, and agree with the H&P unless as otherwise noted. Assessment and Plan: Dizziness- Unclear etiology, with CT head negative Admit to [facility] with telemetry to monitor for arrhythmia Differentials include but not limited to BPPV, dehydration, viral, electrolyte disturbance Zofran 4 mg IV every 6 hours as needed Famotidine 20 mg IV every 12 hours NSS + KCl 20 mEq at 100 mils per hour Follow serial laboratories Hypertension- Continue amlodipine with hold parameters Hypokalemia- Potassium 2.9 Replace both oral and IV and recheck laboratories in the a.m. Hypercholesterolemia- Continue rosuvastatin Check a fasting lipid panel Moderate obstructive sleep apnea continue CPAP may need to be reassessed Remaining orders and notations as noted Coding Level of Care Code 81365 INT INP/OBS CARE 2MIN
[2022-09-24 07:39] LABS: Chol HDL Ratio 2.9 (0-5)
[2022-09-24] MEDS: ASPIRIN 81 MG ECTAB PO SCH (07:52)
[2022-09-24] MEDS: amLODIPine BESYLATE 5 MG TAB PO SCH (07:52)
[2022-09-24] MEDS: MECLIZINE 12.5 MG TAB PO SCH (07:52)
[2022-09-24] MEDS: FLUTICASONE PROPIONATE NA SPR 16 GM BTL SCH (10:49)
--- NOTE | 2022-09-24 12:27 | Discharge Summary ---
Date of Service September 24, 2022 Admission HPI Per Admitting Provider Patient is a 61-year-old female with past medical history of migraines, hyperlipidemia, moderate obstructive sleep apnea, hypertension, Graves' disease, and goiter who presents to the emergency department for evaluation regarding dizziness. By the time that I had made contact with her to evaluate her, she had been given Ativan and was asleep and difficult to arouse. Majority of history taken from ED provider and who is in the room at the time of my evaluation. reports that dizziness started earlier today approximately 5 to 6 hours ago. ED provider stated that the patient had noted that the whole room felt like it been spinning, however, the states that she was describing it as being on a rocking boat. She had become nauseous shortly after the symptoms had started and had vomited multiple times and since then has began experiencing chest pain. Per ED provider, it is stated that the chest pain is not new and has been present for the past few days and has been intermittent. reports that she has not been experiencing headache. ED course: Patient was brought back to room for evaluation: Lab work included CBC, CMP, troponin, and urinalysis. These were only positive for low potassium at 2.9 and an elevated glucose of 251. Urinalysis not obtained by the time of writing this note. EKG was performed which showed sinus rhythm at a rate of 77 bpm with normal axis. There was T wave inversion in the septal and anterior leads with ST depressions in V4 and V5 that seems slightly progressed from previous EKG. Imaging included head CT which was negative for hemorrhage, mass effect, or acute ischemia. Chest x-ray showed no acute cardiopulmonary abnormality. Patient was treated with Ativan for dizziness and was started on 2 K-riders for hypokalemia. Hospitalist team was then consulted for admission to the hospital. Discharge Exam gen - NAD, pleasant eyes - continues with what appears to be CN 6 deficit on right as well as CN 3 deficit with inability to move the eyeball to the upper outer region of the orbit; diplopia is reproduced by right lateral gaze; no nystagmus noted HENT - MMM neck - no JVD heart - RRR, s1s2, no murmur lungs - CTA b/l abd - soft NT ND BS+ ext - no edema, pulses 2+ b/l neuro - strength 5/5 x 4 exts; speech fluent/clear Discharge Data Allergies Allergy/AdvReac Type Severity Reaction Status Date / Time adhesive Allergy Mild REDNESS, Verified 09/21/22 21:19 ITCHY desloratadine Allergy Unknown RASH Verified 09/21/22 21:19 loratadine Allergy Unknown rash Verified 09/21/22 21:21 shellfish derived Allergy Unknown RASH Verified 09/21/22 21:19 shrimp Allergy Unknown RASH Verified 09/21/22 21:21 phenylephrine Allergy Unknown Unverified 09/21/22 21:22 amlodipine AdvReac Unknown SWELLING Verified 09/21/22 21:20 IN FEET lisinopril AdvReac Unknown SWELLING Verified 09/21/22 21:22 IN FEET Consultations 09/21/22 20:49 ED Decision to Admit Stat 09/22/22 15:46 Consult Neurology Routine 09/23/22 20:02 Consult Cardiology Routine 09/24/22 12:25 Burn CD for patient Stat Ordered Studies 09/21/22 19:52 CT head/brain wo con Stat 09/22/22 09:05 MR brain wo con Routine 09/22/22 17:49 MRI Orbit [MR orbit wo/w con] Routine 09/23/22 08:53 CT angio neck with con Routine CTA head w con [CT angio head w con] Routine Hospital Course (1) Vertigo: IMPROVED. records reviewed - she has had multiple hospital admissions for acute vertigo, and dizziness/vertigo go back many years. has seen neurology in the past. 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 However, during PT vestibular eval today, amberly- hallpike maneuver was negative. PT comments that there could be a cervicogenic component to her vertigo. she DOES get "dizzy" when she develops her diplopia with right lateral gaze. she has typically responded to meclizine in the past and has responded to such while here. Will continue scheduled meclizine to 12.5mg TID. she has seen ENT. she has b/l high frequency hearing loss, mild-moderate degree, based on prior testing. no prior h/o Meniere's based on records, however. she did have severe tinnitus of the left ear last week lasting a full 24 hours. thus, cannot rule out Meniere's disease and neurology did suggest ENT eval post- d/c. thus, all in all, multiple issues could be at play causing the vertigo. fortunately we did rule out CVA as the primary cause of vertigo given her negative MRI brain. (2) Diplopia: patient has double vision with rightward gaze and appears to have extraocular muscle dysfunction of the right eye as described. 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 presumably the tumor may be compromising CN 3/6 leading to her extraocular muscle dysfunction and diplopia. she has seen Dr Francis from [facility] in the past. I spoke with him by phone, and he suggested f/u with Dr Eb Villatoro, neuro- ophthalmology, who is with the [email or web address] system and comes to [facility] locally. will have our nurse navigator set her up with him. will have radiology push her MRIs to the [email or web address] system via PACS. will speak with neurology to see if she should stop driving until this problem is addressed, or do we simply patch the eye to allow driving? 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 leading to diplopia. see #2 above. (4) Tinnitus: left ear. pulsatile. now resolved. CTA head/neck negative for aneurysm, AVM, stenosis, etc. with hearing loss/vertigo/tinnitus - attacks from Meniere's disease?? will need ENT evaluation post-d/c. no tinnitus during the stay. (5) Chest pain: patient had continuous symptoms all day on Monday, 09/19. despite such her troponins were completely normal at time of admission on 09/21. EKG is very abnormal with ST depressions throughout the anterior leads. Previous EKGs in the past were also abnormal but the ST depressions are more prominent throughout all of the anterior leads V1-V6. echo completed with preserved EF and normal LV wall motion. tele thus far normal. symptoms were pleuritic in nature - but O2 sats have been wnl and the pleuritic pain is now resolved. no evidence of pericarditis. she has multiple CAD risk factors, and her father had some form of heart disease - possibly CAD (he from heart disease per her recollection). in light of symptoms, abnl EKG, etc - will ask [facility] to formally see in consult. stress test here? stress test as outpatient? cont aspirin, statin. check lipids am. (6) Migraine headache: mild headache over the last few days - suspect migraine. now improved/resolved. I don't think any of her presentation was a "basilar migraine" or atypical migraine. (7) Hypertension: BPs controlled on home amlodipine. (8) Graves disease: history of such early . needed treatment for <1 year?? was followed by endocrinology in [place] and then she was told she didn't need further f/u. no h/o radioactive iodine treatment or thyroid surgery. at some point was referred to Dr Valadez from endocrinology - 05/2015 had thyroid uptake scan with the following results --- FINDINGS: On the thyroid scan images the thyroid gland appears enlarged. There is homogeneous distribution of tracer throughout the thyroid gland. No hot or cold nodules are identified. 24 hour thyroid uptake is calculated at 28.9% IMPRESSION: 1. The nuclear thyroid scan shows an enlarged gland with homogeneous tracer distribution. No discrete nodules are suspected. 2. The 24-hour thyroid uptake values calculated at 28.9%. This is within the upper range of normal. While here her TSH is minimally depressed but FT4 wnl. I do not believe her right eye findings are from Graves Ophthalmoplegia. With that said will advise she f/u with Dr Valadez post-d/c for a check-in visit to monitor her thyroid and her pre-DM. (9) Paresthesias: b/l hands b/l feet B12 level wnl TSH relatively normal peripheral neuropathy suspected Dr Fritz advising outpatient EMG, etc (10) Prediabetes: a1c 6.2% presenting BSG was 251, now <100 with her h/o Graves I would be concerned she is developing autoimmune T1DM this will need close f/u and monitoring (11) Hypokalemia: has had low values over the years presented with level of 2.9; now 4.1 today 2nd to Graves disease? did not have classic symptoms of Graves associated Periodic hypokalemic paralysis however Plan updated by phone today await cardiology consult in am appreciate neurology assistance Discharge Plan Discharge Items Patient Disposition: Home - Self-Care Reason For Visit: dizziness, vomiting, chest pain Discharge Diagnosis: 1. dizziness - likely vertigo; vertigo is probably due to an inner ear problem and/or related to your right eye problems 2. double vision - due to right eye problems 3. 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 chest pain - no evidence of heart attack; however, outpatient stress test recommended 5. history of Graves Disease 6. pre-diabetes - hemoglobin a1c 6.2% - see handouts Activity: Per Instructions section Driving/Machine Use: No driving until cleared by your eye doctor AND your dizziness is resolved Non-emergency contact: Primary Care Provider, Ultrasound Supervisor and Behavioral Interventionist Call non-emergency contact if: you have any medication questions and your symptoms worsen Follow-up/Referrals: Haroldo Amaro MD [Physician] - (Dr Amaro from cardiology will set you up with an outpatient stress test in the near-future ) Shade Fung MD [Physician] - (we will help set you up with an appointment to see ENT in the future for your chronic dizziness) Estuardo Francis MD [Physician] - (see Dr Francis this week ) Eliud Santillan MD [Primary Care Provider] - (see within 1-2 weeks) Eb Villatoro D.O. [Outside Practitioners] - (we will help set you up with Dr Villatoro, a special type of brass roller, at his [place] Office - [facility]; this appointment will be to address the tumor in the right eye ) Diet: Heart Healthy Addtl Attending Provider Instructions: Mrs Dugan, You were hospitalized due to severe dizziness. In the midst of the dizziness you had significant nausea with vomiting. In addition, a few days before the dizziness had started, you had been having chest pain. We performed various tests to determine the cause of your dizziness. We did NOT find a stroke on MRI brain. However, we did find that there is a tumor behind the right eye. This is likely causing your double vision. It could also be contributing to your dizziness. Other tests including CT scans of the arteries of your head and neck were normal (we did not find blocked arteries in the head or neck), and your echocardiogram was normal as well. At this time the dizziness may be coming from one of your ears OR from the issues in the right eye, or both problems. Either way you are responding nicely to the meclizine for the dizziness. We performed various blood work and you do have "prediabetes." See handout. Your hemoglobin a1c was 6.2% - also see handout. You do not need treatment for the prediabetes but Dr Santillan will need to follow this over time. Finally, with respect to the chest pain, we did NOT find evidence of a heart attack. However, Dr James Amaro from cardiology saw you in consult and is recommending an outpatient stress test. Recommendations - 1. dizziness - take meclizine as follows - * meclizine 12.5mg THREE TIMES DAILY scheduled x 2 days, then - * meclizine 12.5mg TWICE DAILY scheduled x 2 days, then - * meclizine 12.5mg ONCE DAILY x 2 days, then - * use meclizine thereafter on an as needed basis (12.5mg every 6 hours as needed) 2. we will set you up with ENT to determine if the dizziness is coming from one of your ears. 3. no driving until you see Dr Francis and he gives your clearance to drive AND your dizziness has resolved. 4. for nausea or vomiting - ondansetron 4mg every 6 hours as needed. 5. for the right eye tumor/problems - * see Dr Sanchez THIS WEEK. * we will also be setting you up with Dr Eb Villatoro at [facility] can address the tumor in the eye - we will work on this referral early this coming week. 6. chest pain - * Dr Amaro's office will be arranging an outpatient stress test. Return to [facility] if - * you have worsening vision of the right eye * you have worsening nausea/vomiting despite using the nausea medication * your dizziness/vertigo worsens despite taking the meclizine * you develop any new neurological symptoms (difficulty speaking, difficulty using one of your arms or legs, difficulty swallowing, etc) * you have severe chest pains * any other concerns It was our pleasure to care for you! -Dr Langston Pending Studies at Discharge: No Stand-Alone Forms: My [facility] Pryv, Smoking Cessation Medications and DC Order Prescriptions: New ondansetron 4 mg tablet,disintegrating 4 mg PO Q6H PRN (Reason: nausea and vomiting) Qty: 10 0RF Continued amitriptyline 10 mg tablet 10 mg PO HS azelastine 137 mcg (0.1 %) Aerosol,Pablo 1 spray INTRANASAL QPM amlodipine 5 mg tablet 5 mg PO QAM fluticasone propionate [Flonase Allergy Relief] 50 mcg/actuation Pablo,Suspension 1 spray INTRANASAL QAM rosuvastatin 5 mg tablet 2.5 mg PO QPM triamcinolone acetonide 0.1 % Cream 1 applic TOPICAL BID PRN (Reason: Itching) Changed meclizine 12.5 mg Tablet 12.5 mg PO Q6H PRN (Reason: Dizziness Or Vertigo) Qty: 30 0RF Discharge Orders: Discharge Order (Routine); Ordered 09/24/22 Ordered By: Aleksandr Verma/Other Patient Handouts: A1C, Prediabetes, ED Double Vision (Diplopia), ED Vertigo, Unspecified Admission Data Admit Date/Time: 09/22/22 20:14 Attending Provider: Aleksandr Langston Admit Provider: Andre Paige Primary Care Provider: Eliud Santillan Other Providers: Jonas Byrne ; Lion Godfrey ; Haroldo Amaro Coding Diagnoses Vertigo R42 Diplopia H53.2 Ophthalmoplegia of right eye H49.9 Tinnitus H93.19 Chest pain R07.9 Migraine headache G43.909 Hypertension I10 Graves disease E05.00 Paresthesias R20.2 Prediabetes R73.03 Hypokalemia E87.6
--- NOTE | 2022-09-24 15:56 | Cardiology Consultation ---
Date of Consultation September 24, 2022 Assessment & Plan (1) Chest pain: (2) Abnormal EKG: Plan #. Chest pain: While the character of her chest pain is certainly concerning for cardiac etiology, the extended duration, absence of exertional symptoms and lack of elevation in biomarkers confirms that this was not cardiac in etiology. Also preserved LV systolic function without regional wall motion abnormalities. At the very least not associated with an acute coronary syndrome or ischemia. She has had some gastrointestinal evaluation before for some additional abdominal complaints. Its possible that this represented some form of esophageal discomfort. She is fairly sedentary due to orthopedic and back issues. No other symptoms suggestive of coronary insufficiency or angina. 2. Abnormal EKG: She has a history of some abnormal ST and T waves. Her current EKGs resemble her old EKGs. These are certainly abnormal and could be indicative of underlying coronary disease. I think on the basis of her EKG we could perform some additional testing to exclude ischemic heart disease. Given her difficulty with ambulation and exercise I think a dobutamine echocardiogram would be reasonable. This can be performed on an outpatient basis. I will continue her daily aspirin and rosuvastatin currently. History of Present Illness Reason for Consultation: Abnormal EKG, chest pain Requesting Physician: Ivis Attending Physician: Aleksandr Langston History of Present Illness The patient is a 61-year-old woman without a known history of cardiac disease who presented to the hospital with symptoms of dizziness and vertigo. Her initial evaluation focused upon the symptoms and she underwent a neurological evaluation with an eventual diagnosis of vertigo. She was discovered to have a mass lesion posterior to her eye around the optic nerve as well. The relationship between this lesion and her symptoms is unclear. At the time of admission she also reported some chest discomfort. This apparently was fairly severe 5 days prior to her presentation. She stated at that time the discomfort was precordial in nature and a pressure type sensation. It did not appear to be changed with position or deep inspiration. She felt like the symptoms lasted for several hours and only improved gradually over the next day or 2. She has had similar symptoms in the past but the symptoms tend to be quite fleeting in nature. Symptoms themselves were nonexertional. She is limited by significant back and hip discomfort. While she is able to walk she is not able to stand for long periods of time and avoids strenuous exercise. She denies any exertional dyspnea. She has not been aware of palpitations. She does describe the dizziness which brought her into the hospital but no syncope. Her symptoms of dizziness appear to have improved today. Allergies Allergy/AdvReac Type Severity Reaction Status Date / Time adhesive Allergy Mild REDNESS, Verified 09/21/22 21:19 ITCHY desloratadine Allergy Unknown RASH Verified 09/21/22 21:19 loratadine Allergy Unknown rash Verified 09/21/22 21:21 shellfish derived Allergy Unknown RASH Verified 09/21/22 21:19 shrimp Allergy Unknown RASH Verified 09/21/22 21:21 phenylephrine Allergy Unknown Unverified 09/21/22 21:22 amlodipine AdvReac Unknown SWELLING Verified 09/21/22 21:20 IN FEET lisinopril AdvReac Unknown SWELLING Verified 09/21/22 21:22 IN FEET Home Medications Medication Instructions Recorded Confirmed Type amlodipine 5 mg tablet 5 mg PO QAM 09/22/18 09/21/22 History fluticasone propionate 50 1 spray intranasal QAM 09/22/18 09/21/22 History mcg/actuation nasal spray,suspension (Flonase Allergy Relief) azelastine 137 mcg (0.1 %) nasal 1 spray intranasal QPM 04/29/20 09/21/22 History spray aerosol rosuvastatin 5 mg tablet 2.5 mg PO QPM 02/22/22 09/21/22 History amitriptyline 10 mg tablet 10 mg PO HS 09/01/22 09/21/22 History triamcinolone acetonide 0.1 % 1 applic topical BID PRN Itching 09/21/22 09/21/22 History topical cream meclizine 12.5 mg tablet 12.5 mg PO Q6H PRN Dizziness Or 09/24/22 Rx Vertigo #30 tabs ondansetron 4 mg disintegrating 4 mg PO Q6H PRN nausea and 09/24/22 Rx tablet vomiting #10 tabs Patient History Medical History Arthritis History of depression History of high cholesterol HTN (hypertension) Osteopenia Postmenopausal Sleep apnea SNHL (sensorineural hearing loss) Surgical History H/O hand surgery H/O tubal ligation History of colonoscopy History of trigger finger S/P lumbar laminectomy Family History Sister Cervical cancer Sister Thyroid cancer Other Cancer Heart disease Hypertension No family history of adverse response to anesthesia No family history of bleeding disorder Prostate cancer Denies family history of Ovarian cancer Breast cancer Social History Smoking Status: Never smoker Second Hand Exposure: No; Hx Alcohol Use: No Hx Substance Use: No Preferred Language: Cantonese Telugu Communication Ability: Effective 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 Mood affect appear normal. She answered all questions appropriately. HEENT: Sclerae are anicteric. Pupils are equal and reactive to light and accommodation. Extraocular movements were intact. Neuro: Cranial nerves intact Neck: Examination of the submandibular region did not reveal any significant lymphadenopathy. Carotids are palpable bilaterally and free of bruits on auscultation. There was no evidence of jugular venous distention. The thyroid was not enlarged. Lungs: Lungs are clear to auscultation bilaterally. There are no rales wheezes or rhonchi. She has normal respiratory effort without use of accessory muscles. There is normal pulmonary excursion. Cardiac: The rhythm was regular. S1 and S2 were normal. There are no murmurs on examination. The PMI was not markedly displaced on palpation. Abdomen: The abdomen was soft and nontender. Extremities: Patient has bilateral radial pulses that are equal in intensity. There is no evidence cyanosis or clubbing. There was no evidence of significant peripheral edema bilaterally. Skin: There are no rashes noted on examination today. Results & Data Vital Signs (Past 12 Hours) Vital Signs Temp Pulse Pulse Resp BP BP Pulse Ox 09/24/22 13:39 36.6 C 57 L 12 112/70 88/55 L 95 09/24/22 07:44 57 L 09/24/22 07:42 36.6 C 57 L 12 112/70 95 O2 Del Method 09/24/22 13:39 09/24/22 07:44 09/24/22 07:42 Room Air Laboratory Results Abnormal Lab Results 09/24/22 06:14 Triglycerides 111 Cholesterol 165 LDL Cholesterol, Calc 87 VLDL Cholesterol, Calc 22 HDL Cholesterol 56 Cholesterol/HDL Ratio 2.9 Diagnostic Findings Echocardiogram performed yesterday revealed preserved LV systolic function without significant valvular heart disease. PG Care Time/CCT Total # of Minutes Spent Total Time Spent with Patient: Total time spent is greater than 50% in coordination of care (as documented) at patient's floor/unit and/or counseling patient: Coding Level of Care Code 66216 OFFICE CONSULT LVL 40M Diagnoses Chest pain R07.9 Abnormal EKG R94.31
== END 2022-09-24 13:40 | disposition home or self-care (01) | DRG 149 ==
LOC: ED 19:29 → 2N 19:29 → SUATTDRO 21:45 → 2N 22:20
DX: G43.909 Migraine, unspecified, not intractable, without status migrainosus; Z91.048 Other nonmedicinal substance allergy status; R11.2 Nausea with vomiting, unspecified; R94.31 Abnormal electrocardiogram [ECG] [EKG]; Z88.8 Allergy status to other drugs, medicaments and biological substances; H91.93 Unspecified hearing loss, bilateral; E78.00 Pure hypercholesterolemia, unspecified; Z86.39 Personal history of other endocrine, nutritional and metabolic disease; Z79.899 Other long term (current) drug therapy; D33.3 Benign neoplasm of cranial nerves; G62.9 Polyneuropathy, unspecified; H53.2 Diplopia; G47.33 Obstructive sleep apnea (adult) (pediatric); H93.A2 Pulsatile tinnitus, left ear; H49.3 Total (external) ophthalmoplegia; R73.03 Prediabetes; Z91.013 Allergy to seafood; I10 Essential (primary) hypertension; R07.9 Chest pain, unspecified; R42 Dizziness and giddiness; E87.6 Hypokalemia